=== PATIENT | male | born 1950 | race Caucasian/White ===

== ENCOUNTER 2019-02-17 09:46 | Inpatient (IN) ==
[2019-02-17] MEDS ORDERED: ZITHROMAX 500 MG/NS 500 MG/250 ML IVPB IV ONE (10:40)
[2019-02-17] MEDS ORDERED: NS 1,000 ML IV ONE ×2 (10:40→15:06)
[2019-02-17] MEDS ORDERED: ROCEPHIN 2 GM in NS 50 ML IV ONE (10:40)
[2019-02-17] MEDS ORDERED: DUONEB (A & A) INH ONE (10:44)
[2019-02-17 10:45] LABS: ALLEN TEST YES; BLOOD TYPE ARTERIAL; HCO3-(ACT) 20.9 mmoll (20.0-26.0); METHB 1.8 % (0.0-1.5); O2(CT) 17.3 mL/dL (15.0-23.0); O2HB 91.2 % (95.0-99.0); PCO2(98.6) 29 mmHg (35-45); PO2(98.6) 65 mmHg (60-100); SAMPLE BLOOD; SAO2 95.6 % (95.0-100.0); THB 13.5 g/dL (11.5-17.4); pH(98.6) 7.41 (7.35-7.45)
[2019-02-17 10:46] LABS: MODALITY ROOM AIR
[2019-02-17 10:46] LABS: INR 1.29; PROTIME 16.3 Seconds (11.0-16.0)
[2019-02-17 10:47] LABS: PTT 28.7 Seconds (22.3-41.8)
[2019-02-17 10:48] LABS: BASO# 0.01 X1000 (0.0-0.2); BASO% 0.1 % (0.0-0.8); HEMATOCRIT 39.4 % (42.0-52.0); HEMOGLOBIN 13.5 g/dL (14.0-18.0); IMM GRAN# 0.04 X1000 (0.0-0.04); IMM GRAN% 0.5 % (0.0-0.5); LYMPH# 0.46 X1000 (1.2-3.4); LYMPH% 5.4 % (20.5-51.1); MCH 34.4 PG (27-31); MCHC 34.3 g/dL (33-37); MCV 100.3 FL (81-99); MONO# 0.58 X1000 (0.11-0.59); MONO% 6.8 % (1.7-9.3); MPV 9.7 FL (7.4-10.4); NEUT# 7.41 X1000 (1.4-6.5); NEUT% 87.2 % (42.2-75.2); PLT 208 X1000 (130-400); RBC 3.93 XMIL (4.7-6.1); RDW 13.6 % (11.5-14.5)
--- NOTE | 2019-02-17 10:55 | Diag Imaging Result Doc PS360 ---
EXAM: CHEST-1 VIEW 02/17/2019 HISTORY: possible sepsis TECHNIQUE: AP portable upright at 1045 COMMENT: There is cardiomegaly and increased pulmonary vascularity. There is interstitial pulmonary edema. There are bilateral pleural effusions. These findings were not present on 10/01/2013. The possibility of superimposed pneumonia in the right upper lobe cannot be excluded. IMPRESSION: Pulmonary edema, cardiomegaly and pleural effusions. Questionable bronchopneumonia. Electronically signed by Trey Matamoros 02/17/2019 10:53 AM
--- NOTE | 2019-02-17 10:59 | EKG Report ---
Test Performed on : 02/17/2019 09:53:50 AM Test Reason : COUGH Blood Pressure : / mmHG Vent. Rate : 114 BPM Atrial Rate : 114 BPM P-R Int : 152 ms QRS Dur : 086 ms QT Int : 358 ms P-R-T Axes : 073 -44 091 degrees QTc Int : 493 ms Sinus tachycardia. Possible Left atrial enlargement Left axis deviation Left ventricular hypertrophy Nonspecific T wave abnormality Abnormal ECG No previous ECGs available Unconfirmed Result
[2019-02-17 11:13] LABS: ALB/GLOB RATIO 1.1; ALBUMIN 3.7 g/dL (3.5-5.0); CALCIUM 8.8 mg/dL (8.8-10.2); TOTAL BILIRUBIN 1.01 mg/dL (0.20-1.00); TOTAL PROTEIN 7.2 g/dL (6.3-8.3)
[2019-02-17 11:24] LABS: URINE SOURCE CATH
[2019-02-17 11:33] LABS: BILIRUBIN URINE NEGATIVE (NEGATIVE); BLOOD URINE SMALL (NEGATIVE); COLOR YELLOW; GLUCOSE URINE NEGATIVE (NEGATIVE); KETONE URINE NEGATIVE (NEGATIVE); LEUKOCYTES URINE NEGATIVE (NEGATIVE); NITRITE URINE NEGATIVE (NEGATIVE); PROTEIN URINE 300 mg/dL (NEGATIVE); SP GRAVITY URINE 1.021; TURBIDITY URINE CLEAR (CLEAR); UROBILINOGEN URINE 2 mg/dL (NORMAL)
[2019-02-17 11:34] LABS: UR EPITHELIAL CELLS <10 /HPF (<10); URINE BACTERIA NEGATIVE /HPF; URINE RBC <10 /HPF (<10); URINE WBC <10 /HPF (<10)
[2019-02-17] MEDS ORDERED: LR 1,000 ML IV ONE (11:34)
[2019-02-17 12:06] LABS: BANDS 4 % (0-1); LYMPHS 4 % (21-51); MONO 4 % (1-9); SEGS 88 % (42-75)
--- NOTE | 2019-02-17 12:30 | PROVIDER DOCUMENTATION ---
This chart was entered by Kyleigh Cowart Scribe, acting as scribe for Sanford Condon MD. HPI-Respiratory General - General Chief Complaint: Shortness of Breath Stated Complaint: SOB Time Seen by Provider: 02/17/19 10:33 Source: patient, family Allergies/Adverse Reactions: Patient Allergies Allergy/AdvReac Type Severity Reaction Status Date / Time Penicillins Allergy HIVES Verified 02/17/19 10:02 Home Medications: Home Medication List Medication Instructions Recorded Confirmed Last Taken Type NK [No Home Medications] 02/17/19 02/17/19 Unknown History - History of Present Illness-Resp Nature of Presenting Problem: Patient is a 68 year old male who presents with shortness of breath and cough. Family states symptoms have been present for 2.5 weeks and worsened last night. Denies fever. History of COPD and liver disease. Quality of Pain: reports: tightness Severity in ED: reports: moderate Onset/Duration: reports: other (2.5 weeks) Timing: reports: still present, getting worse (last night) Cough Quality/Degree: reports: moderate Associated Symptoms: reports: cough, shortness of breath Similar Symptoms Previously?: Yes Recently seen or treated by another doctor?: No Review of Systems - Adult - REVIEW OF SYSTEMS - ADULT ROS:: ROS per family Constitutional: reports: no symptoms reported. denies: chills, fever, fatique Eyes: reports: no symptoms reported Ears, Nose, Mouth & Throat: reports: no symptoms reported Cardiovascular: reports: no symptoms reported Respiratory: reports: see HPI, cough, shortness of breath. denies: wheezing Gastrointestinal: reports: no symptoms reported Genitourinary: reports: no symptoms reported Musculoskeletal: reports: no symptoms reported Integumentary: reports: no symptoms reported Neurological: reports: no symptoms reported Psychiatric: reports: no symptoms reported Endocrine: reports: no symptoms reported Hematologic/Lymphatic: reports: no symptoms reported Allergic/Immunologic: reports: no symptoms reported All Other Systems: Reviewed and Negative Past History - Adult - PAST MEDICAL HISTORY-ADULT Review of Records: reports: Old Records Reviewed, Social history reviewed & non- contributory. Major Childhood Illnesses: reports: denies history Cardiovascular: reports: denies history Respiratory: reports: COPD Gastrointestinal: reports: denies history Obstetrical/Gynecological: reports: denies history Genitourinary: reports: denies history Musculoskeletal: reports: denies history Neurological: reports: denies history Psychiatric: reports: ptsd Endocrine/Immune: reports: denies history Other Conditions: reports: denies history - PRIOR SURGERIES/PROCEDURES Surgical/Procedure History: reports: reviewed, not pertinent - IMMUNIZATION STATUS Childhood Immunizations: See Nurse Assessment Flu Vaccine: See Nurse Assessment - FAMILY HISTORY Family History: reviewed, not pertinent - SOCIAL HISTORY Smoking: quit less than 1 year (quit for 2.5 weeks), cigarettes Substance Use: alcohol Alcohol Use Frequency: occasionally Living Situation: family Physical Exam-General - PHYSICAL EXAM-ADULT Initial Vital Signs Reviewed: Yes - CONSTITUTIONAL General Appearance: alert, no apparent distress, thin. negative: lethargic - HEAD, EARS, NOSE, MOUTH & THROAT HENMT: normocephalic/atraumatic, moist mucous membranes. negative: angioedema - RESPIRATORY Respiratory: chest non-tender, rales (bilateral. left worse than right). n egative: respiratory distress - CARDIOVASCULAR Cardiovascular: normal peripheral pulses, tachycardia. negative: systolic murmur - GASTROINTESTINAL (ABDOMEN) Abdominal Exam: normal bowel sounds, non tender, soft. negative: guarding, rigid - MUSCULOSKELETAL Extremity: non-tender, normal inspection. negative: pedal edema - SKIN Integumentary: normal color, normal turgor, warm/dry. negative: cyanosis, ecchymosis, jaundice - NEUROLOGIC Neurologic: grossly normal. negative: aphasia, facial droop - PSYCHIATRIC Psych/Mental Status: normal mood/affect, oriented x 3. negative: anxious - HEART Score HEART Score: History: Slightly Suspicious HEART Score: ECG: Non-Specific Repolarization Disturbance/LBBB/PM HEART Score: Age: > or = 65 Years HEART Score: Risk Factors for Atherosclerotic Disease: 1 or 2 Risk Factors HEART Score: Troponin: < or = Normal Limit Total HEART Score:: 4 Progress - PLAN OF CARE/RESULTS Progress/Plan/Lab Results: Vital Signs - 8 hr 02/17/19 09:54 02/17/19 09:59 02/17/19 10:00 Temperature 97.8 F Pulse Rate 115 H 115 H 112 H Respiratory Rate 24 26 H 24 Blood Pressure 182/130 182/130 185/131 O2 Sat by Pulse Oximetry 95 96 96 02/17/19 11:00 02/17/19 11:21 02/17/19 12:00 Temperature Pulse Rate 111 H 104 H 108 H Respiratory Rate 24 18 22 Blood Pressure 177/127 140/107 O2 Sat by Pulse Oximetry 97 95 96 02/17/19 12:12 Temperature Pulse Rate 90 Respiratory Rate 20 Blood Pressure 130/97 O2 Sat by Pulse Oximetry 98 02/17/19 11:18 - Final Sputum Laboratory Results - last 24 hr 02/17/19 02/17/19 02/17/19 10:15 10:15 10:15 WBC 8.50 RBC 3.93 L Hgb 13.5 L Hct 39.4 L MCV 100.3 H MCH 34.4 H MCHC 34.3 RDW Std Deviation 13.6 Plt Count 208 MPV 9.7 Immature Gran % (Auto) 0.5 Neut % (Auto) 87.2 H Lymph % (Auto) 5.4 L Ponce % (Auto) 6.8 Eos % (Auto) 0.0 Baso % (Auto) 0.1 Immature Gran # (Auto) 0.04 Neut # (Auto) 7.41 H Lymph # (Auto) 0.46 L Ponce # (Auto) 0.58 Eos # (Auto) 0.00 Baso # (Auto) 0.01 Segmented Neutrophils 88 H Band Neutrophils 4 H Lymphocytes 4 L Monocytes 4 PT 16.3 H INR 1.29 PTT (Actin FS) 28.7 Specimen Type Sample Site pH pCO2 pO2 HCO3 Base Excess Oxyhemoglobin ABG O2 Sat (Calculated) ABG O2 Saturation ABG Carboxyhemoglobin ABG Methemoglobin Kwan Test A-a O2 Difference Total Hemoglobin Lactate Blood Gas Modality FiO2 % Sodium 124 L Potassium 4.0 Chloride 87 L Carbon Dioxide 17 L Anion Gap 20 BUN 31 H Creatinine 2.0 H Estimated GFR/1.73 m2 33 BUN/Creatinine Ratio 16 Glucose 133 H Calculated Osmolality 258 Calcium 8.8 Total Bilirubin 1.01 H AST 106 H ALT 102 H Alkaline Phosphatase 138 H Creatine Kinase 84 Troponin T Total Protein 7.2 Albumin 3.7 Globulin 3.5 Albumin/Globulin Ratio 1.1 Plasma Lactate Urine Source Urine Color Urine Turbidity Urine pH Ur Specific [place] Urine Protein Ur Glucose (Stick) Ur Ketones (Stick) Urine Blood Urine Nitrite Urine Bilirubin Urobilinogen Dipstick Urine Leukocytes Urine WBC (Auto) Urine RBC (Auto) U Epithel Cells (Auto) Urine Bacteria (Auto) 02/17/19 02/17/19 02/17/19 10:15 10:15 10:35 WBC RBC Hgb Hct MCV MCH MCHC RDW Std Deviation Plt Count MPV Immature Gran % (Auto) Neut % (Auto) Lymph % (Auto) Ponce % (Auto) Eos % (Auto) Baso % (Auto) Immature Gran # (Auto) Neut # (Auto) Lymph # (Auto) Ponce # (Auto) Eos # (Auto) Baso # (Auto) Segmented Neutrophils Band Neutrophils Lymphocytes Monocytes PT INR PTT (Actin FS) Specimen Type ARTERIAL Sample Site R RADIAL pH 7.41 pCO2 29 L pO2 65 HCO3 20.9 Base Excess -5.0 L Oxyhemoglobin 91.2 L ABG O2 Sat (Calculated) 17.3 ABG O2 Saturation 95.6 ABG Carboxyhemoglobin 2.70 H ABG Methemoglobin 1.8 H Kwan Test YES A-a O2 Difference 48.0 Total Hemoglobin 13.5 Lactate 3.10 H Blood Gas Modality ROOM AIR FiO2 % 21.0 Sodium Potassium Chloride Carbon Dioxide Anion Gap BUN Creatinine Estimated GFR/1.73 m2 BUN/Creatinine Ratio Glucose Calculated Osmolality Calcium Total Bilirubin AST ALT Alkaline Phosphatase Creatine Kinase Troponin T 0.038 Total Protein Albumin Globulin Albumin/Globulin Ratio Plasma Lactate 4.3 H* Urine Source Urine Color Urine Turbidity Urine pH Ur Specific [place] Urine Protein Ur Glucose (Stick) Ur Ketones (Stick) Urine Blood Urine Nitrite Urine Bilirubin Urobilinogen Dipstick Urine Leukocytes Urine WBC (Auto) Urine RBC (Auto) U Epithel Cells (Auto) Urine Bacteria (Auto) 02/17/19 11:18 WBC RBC Hgb Hct MCV MCH MCHC RDW Std Deviation Plt Count MPV Immature Gran % (Auto) Neut % (Auto) Lymph % (Auto) Ponce % (Auto) Eos % (Auto) Baso % (Auto) Immature Gran # (Auto) Neut # (Auto) Lymph # (Auto) Ponce # (Auto) Eos # (Auto) Baso # (Auto) Segmented Neutrophils Band Neutrophils Lymphocytes Monocytes PT INR PTT (Actin FS) Specimen Type Sample Site pH pCO2 pO2 HCO3 Base Excess Oxyhemoglobin ABG O2 Sat (Calculated) ABG O2 Saturation ABG Carboxyhemoglobin ABG Methemoglobin Kwan Test A-a O2 Difference Total Hemoglobin Lactate Blood Gas Modality FiO2 % Sodium Potassium Chloride Carbon Dioxide Anion Gap BUN Creatinine Estimated GFR/1.73 m2 BUN/Creatinine Ratio Glucose Calculated Osmolality Calcium Total Bilirubin AST ALT Alkaline Phosphatase Creatine Kinase Troponin T Total Protein Albumin Globulin Albumin/Globulin Ratio Plasma Lactate Urine Source CATH Urine Color YELLOW Urine Turbidity CLEAR Urine pH 6.0 Ur Specific [place] 1.021 Urine Protein 300 A Ur Glucose (Stick) NEGATIVE Ur Ketones (Stick) NEGATIVE Urine Blood SMALL A Urine Nitrite NEGATIVE Urine Bilirubin NEGATIVE Urobilinogen Dipstick 2 A Urine Leukocytes NEGATIVE Urine WBC (Auto) <10 Urine RBC (Auto) <10 U Epithel Cells (Auto) <10 Urine Bacteria (Auto) NEGATIVE Orders Category Date Time Status Cardiac Monitoring DIRECTED Care 02/17/19 10:28 Active IV Insertion ORDERED Care 02/17/19 10:28 Completed Notify MD of + Sepsis Screen NOW Care 02/17/19 10:28 Active Notify Physician As Ordered Care 02/17/19 10:28 Active CHEST-1 VIEW [RAD] Stat Exams 02/17/19 10:28 Completed ABG [RESP] Routine Lab 02/17/19 10:35 Completed BLOOD CULTURE [BLDCUL] Stat Lab 02/17/19 10:15 Results CBC WITH DIFF [HEME] Stat Lab 02/17/19 10:15 Completed CK PROFILE [SP CHEM] Stat Lab 02/17/19 10:15 Completed COMPREHENSIVE METABOLIC PANEL [CHEM] Stat Lab 02/17/19 10:15 Completed LACTATE, PLASMA [CHEM] Lab 02/17/19 10:15 Completed LACTATE, PLASMA [CHEM] Lab 02/17/19 13:30 Uncollected LACTATE, PLASMA [CHEM] Lab 02/17/19 16:30 Uncollected PROTIME WITH INR [COAG] Stat Lab 02/17/19 10:15 Completed PTT [COAG] Stat Lab 02/17/19 10:15 Completed SPUTUM CULTURE WITH GRAM STAIN [RM] Routine Lab 02/17/19 11:18 Results TROPONIN T Stat Lab 02/17/19 10:15 Completed URINALYSIS W/POSS RFLX CULT [URINALYSIS] Stat Lab 02/17/19 11:18 Completed 0.9% Sodium Chloride Inj [Ns] 1,000 ml Med 02/17/19 10:40 Discontinued IV 999 mls/hr Albuterol 2.5MG/Ipratrop 0.5MG [Duoneb (A & A)] Med 02/17/19 10:44 D iscontinued 3 ml INH NOW ONE Azithromycin 500 mg/Ns [Zithromax 500 mg/Ns] Med 02/17/19 10:40 Discontinued 500 mg in 250 ml IV NOW CefTRIAXONE [Rocephin] 2 gm Med 02/17/19 10:40 Discontinued 0.9% Sodium Chloride Inj [Ns] 50 ml IV NOW Lactated Ringers Inj [Lr] 1,000 ml Med 02/17/19 11:34 Active IV 999 mls/hr Aerosol Treatments Routine Oth 02/17/19 10:44 Completed Aerosol Treatments Stat Oth 02/17/19 10:44 Completed EKG [EKG] Stat Ther 02/17/19 10:40 Draft Result Diagrams: 02/17/19 10:15 02/17/19 10:15 - EKG 1 Time of EKG reading by physician:: 09:53 EKG Read and Signed by:: Sanford Condon EKG Interpretation (*Must complete 3 of following elements*): Abnormal Rate: 114 Rhythm: sinus tachycardia [place]: left QRS: LVH CT Interval: normal Comments: possible left atrial enlargement; nonspecific T wave abnormality. - XRAY 1 XRAY Study: Chest Impression: See EMR Report ( EXAM: CHEST-1 VIEW 02/17/2019 HISTORY: possible sepsis TECHNIQUE: AP portable upright at 1045 COMMENT: There is cardiomegaly and increased pulmonary vascularity. There is interstitial pulmonary edema. T here are bilateral pleural effusions. These findings were not present on 10/01/2013. The possibility of superimposed pneumonia in the right upper lobe cannot be excluded. IMPRESSION: Pulmonary edema, cardiomegaly and pleural effusions. Questionable bronchopneumonia. Electronically signed by Trey Matamoros 02/17/2019 10:53 AM 02/17/19 1053 Interpreting Physician: Trey Matamoros MD Dictated Date/Time: 02/17/19 1052 cc: Sanford Condon MD; None,PCP) - CONSULTS/PCP/HOSPITALIST Notification #1 *Consult/PCP/Hospitalist*: ELEANOR Samayoa for Hospitalist Time Discussed: 11:14 (Dr. Hoff accepted admit) Reason/Comments: Dr. Condon consulted with Danita about patient. Consult Disposition: Will see in ED, Admit Departure - Departure Date of Disposition Decision: 02/17/19 Time of Disposition Decision: 11:20 DIAGNOSIS: COPD exacerbation, Right lower lobe pneumonia, Sepsis, Elevated liver enzymes, Cardiomegaly, Pulmonary edema Disposition: ADMITTED INPATIENT 09 Certified Medical Emergency: Emergent Condition: Fair Referrals and Follow-Ups: None,PCP [Primary Care Provider] - - Critical Care Note This patient required my direct & personal management of CC.: Yes Total Time (mins): 36 Critical Care Statement: This patient required my direct personal management to treat or rule out processes, the absence of which, could potentiallly result in sudden, clinically significant life or limb threatening deterioration. Attestation - Physician/ ERIC Attestation The physician spent face to face time with patient:: Yes Advanced Practice Provider documentation review:: Supervising physician onsite and consulted in the evaluation and care of this patient. The physician did have a face to face encounter with the patient. This chart was documented by the indicated scribe, (Kyleigh Cowart Scribe) and accurately reflects the services I performed and decisions made by me, Sanford Condon MD, as attested by the provider's signature.
[2019-02-17] MEDS ORDERED: DUONEB (A & A) INH PRN (13:15)
[2019-02-17] MEDS ORDERED: M.V.I.-12 10 ML, FOLIC ACID 1 MG, MAGNESIUM SULFATE 1 GM, THIAMINE 100 MG in NS 1,000 ML IV ONE (13:30)
[2019-02-17] MEDS ORDERED: MAGNESIUM SULFATE IV ONE ×2 (13:30→13:40)
[2019-02-17] MEDS ORDERED: FOLIC ACID IV ONE ×2 (13:30→13:40)
[2019-02-17] MEDS ORDERED: THIAMINE IV ONE ×2 (13:30→13:40)
[2019-02-17] MEDS ORDERED: M V I IV ONE ×2 (13:30→13:40)
[2019-02-17] MEDS ORDERED: [UNRECOGNIZED DRUG - OTHER] IV ONE ×2 (13:30→13:40)
[2019-02-17] MEDS ORDERED: ZITHROMAX PO SCH (14:02)
[2019-02-17] MEDS ORDERED: ROCEPHIN 1 GM in NS 50 ML IV SCH (14:02)
[2019-02-17] MEDS: SOLU-MEDROL IV SCH ×2 (15:15→21:15)
[2019-02-17] MEDS: NICODERM PATCH TD SCH (15:15)
--- NOTE | 2019-02-17 16:04 | Diag Imaging Result Doc PS360 ---
EXAM: CT HEAD W/O CONTRAST 02/17/2019 HISTORY: encephalopathy TECHNIQUE: This exam was performed using automated exposure control, adjustment of mA or kV according to patient size, and/or use of iterative reconstruction technique. COMMENT: There are calcifications in the vertebral and internal carotid arteries bilaterally. There are patchy lucencies in the periventricular white matter of both hemispheres particularly in the frontal lobes and around the atria of the lateral ventricles. There is no evidence of bleed, mass effect, or abnormal extra-axial fluid collections. Compared to 06/22/2010, there has been worsening in the periventricular white matter lucency. IMPRESSION: Worsened symmetrical bilateral periventricular white matter disease, probably representing chronic microvascular changes. Electronically signed by Trey Matamoros 02/17/2019 4:00 PM
[2019-02-17] MEDS: DUONEB (A & A) INH SCH ×3 (16:08→22:38)
[2019-02-17 16:10] LABS: CALCIUM 8.2 mg/dL (8.8-10.2); CREATININE 1.8 mg/dL (0.7-1.2); POTASSIUM 4.5 mmol/L (3.5-5.1)
[2019-02-17] MEDS: NS 1,000 ML IV SCH (18:41)
--- NOTE | 2019-02-17 19:07 | HISTORY AND PHYSICAL ---
ADDENDUM: HISTORY OF PRESENT ILLNESS: The patient came in with pneumonia complaints. He is an alcoholic. He drinks 4 to 6 beers. We will continue to monitor. He came in with shortness of breath. He has had a lot of symptoms. He is extremely cachectic with bitemporal wasting. He was found to have a sodium level of 120, so we will continue to follow closely. He has acute kidney injury. He has elevated liver enzymes. PHYSICAL EXAMINATION: He is very cachectic and he has rales at the bases. He is also fairly hypertensive down there. Again, he drinks 4 to 6 beers a day, possibly more. PROBLEM LIST: 1. Pneumonia. We will continue empiric antibiotics and follow. He has been placed on Rocephin, azithromycin. We will continue to monitor. He is on breathing treatments. 2. Alcohol abuse. We have counseled him at length. We will continue to follow closely. In any case, the patient was evaluated and we will give him empiric antibiotics. For his alcohol abuse, we will continue to follow. 3. Hypernatremia. It is most likely related to poor nutrition, etc., but we will continue to follow. 4. He does look like he has some degree of sepsis because his lactate level has increased. There is also concern over possible congestive heart failure based on his cardiac findings. We will check a proBNP and an echocardiogram and follow. DISPOSITION: Pending clinical status. cc: Jamaal Calloway MD
[2019-02-17] MEDS: ATIVAN IV PRN (21:17)
--- NOTE | 2019-02-17 22:18 | HISTORY AND PHYSICAL ---
CHIEF COMPLAINT: Shortness of breath. HISTORY OF PRESENT ILLNESS: This is a 68-year-old gentleman with a history of COPD and liver disease. He presents to the emergency room with family members, complaining of about 4 weeks of shortness of breath. He states that over the last 2-1/2 weeks, he had dyspnea on exertion and he found himself having to have frequent rest periods during activities of daily living. Over the last week, it has progressed to shortness of breath at rest, and during the night last night, he became concerned. His significant other became concerned and insisted that he come to the ER, prompting his visit. He was found to have right lower lobe pneumonia. Blood cultures were obtained in the emergency room. He was given Rocephin and azithromycin, and is being admitted for further evaluation and treatment. PAST MEDICAL HISTORY: 1. COPD. 2. Liver disease. 3. PTSD from [place]. PAST SURGICAL HISTORY: Right thigh surgery. SOCIAL HISTORY: He smokes 2 packs a day. He drinks about 6-plus beers a day and he uses marijuana regularly. ALLERGIES: Penicillin. HOME MEDICATIONS: The patient stopped taking his prescribed medications some time ago. REVIEW OF SYSTEMS: Discussed with the patient with pertinent positives stated in the HPI. He denied any syncope, dizziness, any chest pain or palpitations, recent weight loss or weight gain, any fevers or chills, a productive cough, any nausea, vomiting, diarrhea, constipation, black or bloody vomitus or stools, hematuria, dysuria, frequency, urgency. PHYSICAL EXAMINATION: GENERAL: This is a 68-year-old gentleman who is lying on the stretcher in the emergency room in no distress. VITAL SIGNS: Blood pressure is 113/92, with a heart rate of 107. Respirations are 20. Temperature is 97.8 degrees, with O2 saturations 94 to 97 percent on room air. HEENT: Head is normocephalic, atraumatic. Mucous membranes are moist. NECK: Supple with trachea midline. CARDIOVASCULAR: Regular rate and rhythm. S1 and S2 appreciated. He has no lower extremity edema. Calves are nontender bilaterally with peripheral pulses palpable x4 extremities. PULMONARY: Expiratory wheezes are scattered throughout with left greater than right. Chest rises and falls symmetric to respiration. Chest wall is nontender to palpation. GASTROINTESTINAL: Abdomen is soft, nontender, nondistended with bowel sounds in all 4 quadrants. NEUROLOGIC: He is alert and oriented x3. SKIN: Warm and dry. LABORATORY AND DIAGNOSTIC DATA: WBC is 8.5, with hemoglobin 13.5, hematocrit 39.4, and platelets 208,000. Sodium is 124, potassium 4, BUN 31, creatinine 2, with a glucose of 133. Total bilirubin is 1.0, with AST 106, ALT 102, and alkaline phosphatase 138. Chest x- ray reveals pulmonary edema, cardiomegaly with pleural effusions, and questionable bronchopneumonia. CT of the head reveals symmetrical bilateral periventricular white matter disease which is worsened, probably representing chronic microvascular changes. Blood cultures are pending. ASSESSMENT AND PLAN: 1. Bronchopneumonia. Rocephin and azithromycin, further antibiotics will be culture driven. DuoNeb q.4 hours with q.2 hours p.r.n., steroids to taper, incentive spirometer q.4 hours per Respiratory Therapy. 2. Hyponatremia. check urine electrolytes,IV hydration, and trend labs. 3. Acute kidney injury. IV hydration and renal dose medications as appropriate. 4. Elevated liver function tests. repeat these in the morning. 5. Alcohol use. The patient does state he drinks about 6 to 8 beers a day, with his last drinks being last night. Blood alcohol revealed none detected. monitor for any signs of withdrawal, give Ativan p.r.n., banana bag today. 6. Tobacco use and abuse. Nicotine patch daily. 7. Sepsis secondary to pneumonia. Treatment as stated above. Plan discussed with Dr Calloway Further treatments pending hospital course. Dictated by ELEANOR Dooley for Jamaal Calloway MD cc: ELEANOR Dooley MD [facility]ENTER[facility]ade
[2019-02-18] MEDS: NS 1,000 ML IV SCH ×2 (02:25→16:57)
[2019-02-18] MEDS: DUONEB (A & A) INH SCH ×6 (03:53→23:11)
--- NOTE | 2019-02-18 05:09 | ECHO REPORT ---
ORDER DATE: 02/17/2019 INDICATION: CHF. FINDINGS: 1. Right atrium is moderately enlarged. 2. Mild tricuspid regurgitation. Right ventricular systolic pressure of 48. 3. The right ventricle appears to have mild reduction in right ventricular systolic function. 4. No significant pulmonic insufficiency. 5. Severe left atrial enlargement. Dimension of 5.1 cm. Volume index of 47. 6. No mitral prolapse. Mild mitral regurgitation. No evidence of mitral stenosis. 7. Normal left ventricle size. The end-diastolic dimension is 5.3 cm. Normal wall thicknesses with a posterior and interventricular septal wall thickness 1.1 and 1.0 cm, respectively. Severe reduction in left ventricle systolic function with an estimated ejection fraction of 10 to 15 percent. Optison echo contrast was used. There is no clear evidence of left ventricular thrombus. 8. Aortic valve opens well. No evidence of stenosis or insufficiency. 9. Aorta appears normal in visualized segments. 10. No pericardial effusion is identified. cc: MD Jamaal Garay MD
[2019-02-18] MEDS: PRILOSEC PO SCH (06:02)
[2019-02-18] MEDS: SOLU-MEDROL IV SCH ×3 (06:04→21:06)
[2019-02-18 07:55] LABS: EOS# 0.03 X1000 (0.0-0.7); EOS% 0.5 % (0.0-10.0); HEMATOCRIT 40.5 % (42.0-52.0); HEMOGLOBIN 13.8 g/dL (14.0-18.0); IMM GRAN# 0.02 X1000 (0.0-0.04); IMM GRAN% 0.3 % (0.0-0.5); LYMPH# 0.33 X1000 (1.2-3.4); LYMPH% 5.3 % (20.5-51.1); MCH 34.1 PG (27-31); MCHC 34.1 g/dL (33-37); MONO# 0.14 X1000 (0.11-0.59); MONO% 2.2 % (1.7-9.3); MPV 10.3 FL (7.4-10.4); NEUT# 5.72 X1000 (1.4-6.5); NEUT% 91.7 % (42.2-75.2); PLT 223 X1000 (130-400); RBC 4.05 XMIL (4.7-6.1); RDW 13.7 % (11.5-14.5); WBC 6.24 X1000 (4.8-10.8)
[2019-02-18 08:10] LABS: ALB/GLOB RATIO 1.2; ALBUMIN 3.8 g/dL (3.5-5.0); CALCIUM 8.4 mg/dL (8.8-10.2); CREATININE 2.1 mg/dL (0.7-1.2); POTASSIUM 4.3 mmol/L (3.5-5.1); TOTAL BILIRUBIN 0.9 mg/dL (0.20-1.00)
[2019-02-18 08:40] LABS: LYMPHS 2 % (21-51); SEGS 98 % (42-75)
--- NOTE | 2019-02-18 09:47 | PROGRESS NOTE ---
DATE: 02/18/2019 SUBJECTIVE: He had been admitted on 02/17/2019, and came in with shortness of breath. He has a history of COPD and liver disease. He presented to the emergency room complaining of about 4 weeks of shortness of breath. He states that for about 2 and half weeks had dyspnea on exertion so admitted with bronchopneumonia. His breathing he reports is better. OBJECTIVE: He remains afebrile, temperature 95.7 degrees, pulse 108, respirations 15, and blood pressure 157/133. Pupils are equal and round. Lungs are clear in all lung [place]. Cardiovascular regular rhythm and rate without murmur or S3. Abdomen is soft. Skin is warm and dry. LABORATORY AND DIAGNOSTIC: Urine output looks like it was 2.5 L. EKG from this morning looks like sinus tachycardia with left axis deviation borderline suggestive of left ventricular hypertrophy. ASSESSMENT AND PLAN: 1. Pneumonia. Continue present antibiotics. 2. History of alcohol abuse. We will follow closely for signs of withdrawals. 3. Hyponatremia, which is improved. Suspect that is related to his nutrition and his alcoholism. 4. Appeared to have some bacteremia. I am not sure it was true sepsis, but continue present regimen. REVIEW OF HIS ORDERS: I do not see any change. LABORATORY DATA: Review of his labs, sodium was 129, potassium 4.3, chloride 93, BUN 36, and creatinine 2.1. His plasma lactate was 4.6, creatinine was I think 2.0 when he came in. cc: Kwan Chow MD
--- NOTE | 2019-02-18 10:09 | Diag Imaging Result Doc PS360 ---
EXAM: CT THORAX W/O CONTRAST 02/18/2019 HISTORY: abnormal abgs/ sob TECHNIQUE: This exam was performed using automated exposure control, adjustment of mA or kV according to patient size, and/or use of iterative reconstruction technique. COMMENT: There are no previous studies. There are large bilateral pleural effusions. Some of this is loculated in the fissure on the left and laterally. There is ascites. There is extensive coronary calcification. There are densely calcified nodes in the subcarina and left hilum. There are spondylotic changes in the lower cervical and thoracic spine. There is compressive atelectasis in both lower lobes and the lingula. The possibility of pneumonia cannot be excluded. There is COPD. There is an apical pleural-based nodule/mass with some microlobulation spiculation of its contours in the right upper lobe. There is an irregular nodule which is not calcified in the anterior left apex on image 24. There is a calcified granuloma in the left lower lobe. IMPRESSION: 1. Bilateral large pleural effusions with compressive atelectasis. The left effusion is slightly loculated. 2. Suspicious pleural-based mass in the right apex. Noncalcified nodule in the left upper lobe. Further evaluation is recommended. Electronically signed by Trey Matamoros 02/18/2019 10:07 AM
[2019-02-18] MEDS: NICODERM PATCH TD SCH (10:48)
[2019-02-18] MEDS: ZITHROMAX PO SCH (10:48)
[2019-02-18] MEDS: ROCEPHIN 1 GM in NS 50 ML IV SCH (11:26)
[2019-02-19] MEDS: DUONEB (A & A) INH SCH ×6 (03:41→22:49)
[2019-02-19] MEDS: SOLU-MEDROL IV SCH ×3 (05:56→21:19)
[2019-02-19] MEDS: PRILOSEC PO SCH (05:59)
[2019-02-19] MEDS: ATIVAN IV PRN ×2 (06:07→21:19)
[2019-02-19] MEDS: ZITHROMAX PO SCH (09:29)
[2019-02-19] MEDS: NICODERM PATCH TD SCH (09:29)
[2019-02-19] MEDS: NS 1,000 ML IV SCH (09:45)
[2019-02-19] MEDS: ROCEPHIN 1 GM in NS 50 ML IV SCH (11:54)
--- NOTE | 2019-02-19 14:02 | PROGRESS NOTE ---
DATE: 02/19/2019 SUBJECTIVE: The patient denies having any acute complaints this morning and feels okay. OBJECTIVE: Vital Signs: Temperature 97.8 degrees, pulse 116 per minute, respiratory rate 18 per minute, blood pressure 160/123, pulse oximetry 100% on 2 L of oxygen via nasal cannula. His blood pressure was 127/53 around midnight. It has been fluctuating whenever he gets anxious. Cardiovascular: First and second heart sounds are audible without any murmurs or gallops. Regular tachycardia is present. Pulmonary: Bilateral lung air entry is good without any rales or rhonchi. Gastrointestinal: Abdomen is soft and nondistended. Normal bowel sounds are present. Musculoskeletal: No deformities are present. DIAGNOSTIC DATA: No labs have been done this morning. Chest CT scan done yesterday showed bilateral large pleural effusions with atelectasis and suspicious pleural-based mass in the right apex. Noncalcified nodule in the left upper lobe was also seen. IMPRESSION: 1. Bronchial pneumonia with bilateral pleural effusions and right apex pleural-based mass. 2. Hyponatremia. 3. Alcohol abuse. PLAN: We will continue with IV azithromycin and ceftriaxone along with supportive care. He will also continue getting IV methylprednisolone and we will monitor his electrolytes. We will obtain pulmonary consultation with Dr. Case to further assist us in addressing his abnormalities on CT scan of the chest done yesterday. Further recommendations are forthcoming. cc: Sarah Smith MD
[2019-02-19 15:44] LABS: MAGNESIUM 2.5 mg/dL (1.5-2.7); PHOSPHORUS 4.8 mg/dL (2.7-4.5)
--- NOTE | 2019-02-19 16:23 | Diag Imaging Result Doc PS360 ---
EXAM: US RENAL 2 (RETROPER) COMPLETE - 02/19/2019 HISTORY: renal failure TECHNIQUE: Bilateral renal ultrasound COMPARISON: None. FINDINGS: The right kidney measures 10.5 x 4.6 x 4.3 cm in size, with cortical thickness of approximately 1 cm. The left kidney measures 9.6 x 4.8 x 5.4 cm in size, with cortical thickness of approximately 1 cm. There are two right renal cysts which measure 1.6 cm and 1.3 cm, respectively. There is no solid renal mass, renal stone, or hydronephrosis identified. The renal cortices are possibly mildly echogenic diffusely, which can be seen with medical renal disease. The urinary bladder is decompressed by Thompson catheter and is not evaluated. There are small to medium amount ascites noted. IMPRESSION: Small right renal cysts. Possible medical renal disease. No hydronephrosis. Small to medium amount of ascites noted. Electronically signed by Elie Hoyos 02/19/2019 4:20 PM
[2019-02-19] MEDS: LASIX IV SCH (16:35)
--- NOTE | 2019-02-19 22:51 | PULMONOLOGY CONSULTATION ---
DATE: 02/19/2019 REASON FOR CONSULTATION: Abnormal CT scan of the thorax. HISTORY OF PRESENT ILLNESS: Mr. Doyle is a 68-year-old white male with extensive and ongoing tobacco use, history of cannabis use, history of alcohol use with alcohol-related liver disease who presented to the emergency room 02/17/2019 with cough, shortness of breath, and generalized weakness. The patient was tachycardic and hypertensive upon presentation. Chest x-ray revealed cardiomegaly with pleural effusions and possible pneumonia. The patient underwent a CT scan of the head, which revealed worsening periventricular white matter disease compared to 06/22/2010. A CT scan of the thorax on 02/18/2019 revealed cardiomegaly, pulmonary edema, bilateral pleural effusions, ascites, apically based pleural mass in the right upper lobe with an irregular nodule in the left apex. PAST MEDICAL HISTORY: 1. COPD with ongoing tobacco use. 2. Alcohol abuse. 3. Alcohol-related liver disease. 4. Posttraumatic stress disorder. SOCIAL HISTORY: Continued tobacco and alcohol use with frequent use of marijuana. REVIEW OF SYSTEMS: Notable for weight loss, shortness of breath with any exertion, generalized weakness. PHYSICAL EXAMINATION: Reveals a frail, emaciated, cachectic white male with a BMI of 19. BP 154/117, heart rate 120, respiratory rate 24, oxygen saturation 100% on nasal cannula at 2 L per nasal cannula.HEENT: Mild temporal wasting. Pupils are equal and reactive. Oropharynx is clear. Neck: Supple. Chest: Reveals prolonged expiratory phase bilaterally. Cardiac: S1, S2. Abdomen: Scaphoid, soft. Extremities: With trace edema. LABORATORY DATA: Sodium 129, potassium 4.3, chloride 93, bicarbonate 18, BUN 36, creatinine 2.1, AST 105, ALT 97. White blood count 6.24, hemoglobin 13.8, platelet count 223,000. Echocardiogram reveals severe LV dysfunction with an ejection fraction of 10 to 15 percent with moderate pulmonary hypertension. IMPRESSION: A 68-year-old with 1. Right upper lobe mass. 2. Solitary pulmonary nodule, left upper lobe. 3. Bilateral pleural effusions. 4. Cardiomegaly with cardiomyopathy and severe reduction in ejection fraction. 5. Cachexia. 6. Hypoxemic respiratory failure. 7. Acute worsening of renal function numbers when compared to previous data in 2014. RECOMMENDATIONS: 1. Encourage patient to stop smoking and drinking for his nicotine addiction/tobacco use and alcohol use. 2. Placement of Thompson catheter and check an ultrasound with his acute worsening of his renal function. 3. Diuretic trial. 4. Check a CEA level. 5. Check a folate and vitamin level. 6. Anticipate outpatient PET scan. Currently, he is not clinically able to undergo CT-guided biopsy at this time. He will need to gain significant amount of strength. cc: Steven Morrison MD
[2019-02-20] MEDS: DUONEB (A & A) INH SCH ×6 (03:20→23:12)
[2019-02-20] MEDS: LASIX IV SCH (03:27)
[2019-02-20] MEDS: PRILOSEC PO SCH (06:12)
[2019-02-20] MEDS: SOLU-MEDROL IV SCH ×3 (06:12→21:13)
[2019-02-20 07:51] LABS: HEMATOCRIT 39.2 % (42.0-52.0); HEMOGLOBIN 13.3 g/dL (14.0-18.0); IMM GRAN# 0.03 X1000 (0.0-0.04); IMM GRAN% 0.2 % (0.0-0.5); LYMPH# 0.24 X1000 (1.2-3.4); LYMPH% 1.6 % (20.5-51.1); MCH 34.3 PG (27-31); MCHC 33.9 g/dL (33-37); MONO# 0.52 X1000 (0.11-0.59); MONO% 3.4 % (1.7-9.3); MPV 10.5 FL (7.4-10.4); NEUT# 14.47 X1000 (1.4-6.5); NEUT% 94.8 % (42.2-75.2); PLT 172 X1000 (130-400); RBC 3.88 XMIL (4.7-6.1); RDW 14.2 % (11.5-14.5); WBC 15.26 X1000 (4.8-10.8)
[2019-02-20 07:59] LABS: CALCIUM 8.8 mg/dL (8.8-10.2); CREATININE 2.6 mg/dL (0.7-1.2); POTASSIUM 4.9 mmol/L (3.5-5.1)
[2019-02-20] MEDS: NICODERM PATCH TD SCH (10:25)
[2019-02-20] MEDS: ZITHROMAX PO SCH (10:25)
[2019-02-20 10:35] LABS: URINE SOURCE CATH
[2019-02-20 10:41] LABS: BILIRUBIN URINE NEGATIVE (NEGATIVE); BLOOD URINE MODERATE (NEGATIVE); COLOR YELLOW; GLUCOSE URINE NEGATIVE (NEGATIVE); KETONE URINE NEGATIVE (NEGATIVE); LEUKOCYTES URINE NEGATIVE (NEGATIVE); NITRITE URINE NEGATIVE (NEGATIVE); PROTEIN URINE 30 mg/dL (NEGATIVE); SP GRAVITY URINE 1.009; TURBIDITY URINE CLEAR (CLEAR); UROBILINOGEN URINE NORMAL (NORMAL)
[2019-02-20 10:42] LABS: UR EPITHELIAL CELLS <10 /HPF (<10); URINE BACTERIA NEGATIVE /HPF; URINE WBC <10 /HPF (<10)
[2019-02-20 10:57] LABS: HEMATOCRIT 40.8 % (42.0-52.0); HEMOGLOBIN 13.7 g/dL (14.0-18.0); IMM GRAN# 0.03 X1000 (0.0-0.04); IMM GRAN% 0.2 % (0.0-0.5); LYMPH# 0.25 X1000 (1.2-3.4); LYMPH% 1.7 % (20.5-51.1); MCHC 33.6 g/dL (33-37); MCV 101.2 FL (81-99); MONO# 0.35 X1000 (0.11-0.59); MONO% 2.4 % (1.7-9.3); MPV 10.6 FL (7.4-10.4); NEUT# 14.17 X1000 (1.4-6.5); NEUT% 95.7 % (42.2-75.2); PLT 177 X1000 (130-400); RBC 4.03 XMIL (4.7-6.1); RDW 14.1 % (11.5-14.5)
--- NOTE | 2019-02-20 11:00 | Diag Imaging Result Doc PS360 ---
CHEST-1 VIEW - 02/20/2019 INDICATION: Sepsis protocol COMPARISON: 02/17/2019 FINDINGS: Stable cardiomegaly and pulmonary vascular congestion. Worsening in the small bilateral pleural effusions. There is decrease in the interstitial pulmonary edema in the midlungs and upper lobes. IMPRESSION: Mixed changes from prior. Electronically signed by Jose Francisco Licea 02/20/2019 10:58 AM
[2019-02-20 11:03] LABS: INR 1.46
[2019-02-20 11:04] LABS: PTT 27.8 Seconds (22.3-41.8)
[2019-02-20 11:50] LABS: ALLEN TEST YES; BE -7.7 mmoll (-3.0-3.0); BLOOD TYPE ARTERIAL; HCO3-(ACT) 18.9 mmoll (20.0-26.0); METHB 1.3 % (0.0-1.5); MODALITY CANNULA; O2(CT) 18.3 mL/dL (15.0-23.0); O2HB 95.4 % (95.0-99.0); PCO2(98.6) 29 mmHg (35-45); PO2(98.6) 96 mmHg (60-100); SAMPLE BLOOD; THB 13.6 g/dL (11.5-17.4); pH(98.6) 7.36 (7.35-7.45)
[2019-02-20 11:55] LABS: ALB/GLOB RATIO 1.1; ALBUMIN 3.6 g/dL (3.5-5.0); CALCIUM 9.2 mg/dL (8.8-10.2); CREATININE 3.1 mg/dL (0.7-1.2); POTASSIUM 4.6 mmol/L (3.5-5.1); TOTAL BILIRUBIN 0.94 mg/dL (0.20-1.00)
[2019-02-20] MEDS: ROCEPHIN 1 GM in NS 50 ML IV SCH (12:40)
[2019-02-20 13:24] LABS: UR CREAT RANDOM 39.9 mg/dL (14-26); UR PROT RANDOM 38.1 mg/dL
[2019-02-20] MEDS ORDERED: LABETALOL IV ONE (16:53)
[2019-02-20] MEDS ORDERED: LABETALOL IV PRN (18:23)
--- NOTE | 2019-02-20 19:31 | EKG Report ---
Test Performed on : 02/20/2019 5:29:55 PM Test Reason : tachycardia Blood Pressure : / mmHG Vent. Rate : 085 BPM Atrial Rate : 085 BPM P-R Int : 150 ms QRS Dur : 082 ms QT Int : 400 ms P-R-T Axes : 019 -16 061 degrees QTc Int : 476 ms Normal sinus rhythm. Possible Left atrial enlargement Nonspecific T wave abnormality Prolonged QT Abnormal ECG When compared with ECG of 17-FEB-2019 09:53, (Unconfirmed) Nonspecific T wave abnormality now evident in Inferior leads Nonspecific T wave abnormality, worse in Anterior leads Confirmed by Milan GARZA, [place] Kirkland ([id number]) on 02/21/2019 8:30:53 AM
--- NOTE | 2019-02-20 20:22 | PROGRESS NOTE ---
DATE: 02/20/2019 SUBJECTIVE: The patient stated that he was trying to get out of bed, and slipped and fell. He also complains of increasing shortness of breath. OBJECTIVE: Vital Signs: Temperature 97.4 degrees, blood pressure 181/119, heart rate 132, respirations 18, O2 saturation is 100% on 3 L nasal cannula. Intake 360, output 800. General: This is a chronically ill-appearing, elderly male, lying in bed in no acute distress. Head: Normocephalic, atraumatic. Heart: S1, S2 normal. Tachycardic. Lungs: Diminished breath sounds at the bases. Mild expiratory wheezes noted. Abdomen: Positive bowel sounds. Soft, nontender, nondistended. Extremities: No edema. No cyanosis. No calf tenderness. Neurologic: The patient is alert and oriented x3. LABORATORY AND DIAGNOSTIC DATA: White blood cell count 14, hemoglobin 13, hematocrit 40, platelets 177,000. INR 1.4. Sodium 131, potassium 4.6, chloride 94, CO2 of 17, BUN 67, creatinine 3.1, glucose 167. AST 199, ALT 154, alkaline phosphatase 187. Lactate 2.6. Chest x-ray shows pulmonary vascular congestion and small bilateral pleural effusions. ASSESSMENT AND PLAN: 1. Acute hypoxemic respiratory failure. Multifactorial. The patient has pulmonary edema and bilateral pleural effusions,COPD and a lung mass. We will continue to manage the volume, and continue with bronchodilator therapy and supplemental oxygen. Further management as per . 2. Acute pulmonary edema. Improved. Further management as per the napper fixer. 3. Acute on chronic systolic congestive heart failure exacerbation. The patient has an ejection fraction of 10 to 15 percent. We will continue to manage the patient's volume status. 4. Acute kidney injury on chronic kidney disease. The patient's BUN and creatinine have worsened. The patient's urine output remains adequate. We will check urine studies and consult with Nephrology. 5. Elevated liver function tests. We will check a hepatitis profile. We will also order a CT of the abdomen and pelvis. The CEA was noted to be elevated. Will consider a GI consultation. 6. Bilateral pleural effusions. Stable. Unchanged. 7. Hyponatremia. Slightly improved. We will continue to manage the patient's volume status. 8. Chronic obstructive pulmonary disease. Continue with bronchodilator therapy, IV steroids, and supplemental oxygen. 9. Left upper lobe nodule. The patient will likely be set up for an outpatient PET scan as directed by Dr. Morrison. 10. Right upper lobe mass. This will be assessed via PET scan since the patient is not medically stable for a CT-guided biopsy at this time. 11. Cardiomyopathy. Aware. 12. Uncontrolled hypertension. Will adjust the antihypertensive regimen. 13. Alcohol abuse. The patient has been counseled about cessation. 14. Tobacco dependence. The patient has been counseled about cessation. 15. Deep vein thrombosis prophylaxis. Will start the patient on heparin. cc: Becky Guillaume MD MTDD
[2019-02-20] MEDS ORDERED: NORVASC PO SCH (21:00)
[2019-02-20] MEDS: HEPARIN SUBQ SCH (21:13)
[2019-02-20] MEDS: BICITRA PO SCH (21:13)
[2019-02-20] MEDS: COREG PO SCH (21:14)
--- NOTE | 2019-02-20 21:22 | NEPHROLOGY CONSULTATION ---
DATE: 02/20/2019 REASON FOR CONSULTATION: Acute kidney injury. HISTORY OF PRESENT ILLNESS: Mr. Doyle is a 68-year-old white male who has a history of alcoholism, PTSD, COPD, chronic liver disease. He states he came to the hospital because he was falling and severely weak. These symptoms have been insidious in onset, but progressively worsening. He states he had a fall that prompted the transfer to the hospital. This was arranged by his family. His evaluation in the emergency room found his initial blood pressure markedly elevated at 182/130 with heart rate 115, respirations 24, afebrile. His initial laboratory evaluation disclosed creatinine 2.0. We do not have any recent baseline data. Most recent creatinine in the system 0.9 back in 2013. Since admission, he has been treated with methylprednisolone and IV antibiotics (ceftriaxone) as well as inhaled bronchodilators. His blood pressure has remained difficult to control. In this context, his creatinine has risen from 2.0 on presentation to 3.1 today. We are asked to see him in consultation to assist with his management. PAST MEDICAL HISTORY: As above. CURRENT MEDICATIONS: Include carvedilol, albuterol, amlodipine, azithromycin, lorazepam, methylprednisolone, omeprazole, ceftriaxone. ALLERGIES: Penicillin. SOCIAL HISTORY: Heavy alcohol abuse. FAMILY HISTORY: Otherwise noncontributory. REVIEW OF SYSTEMS: Otherwise noncontributory. PHYSICAL EXAMINATION: Vital Signs: Blood pressure 181/119, heart rate 132, respiration 18, afebrile. General: Chronically ill, frail man, in no acute distress. Skin: Pale and dry with few ecchymoses. Conjunctivae are pink. Pupils are equal. Oropharynx is clear. Neck: Neck veins are distended. Heart: PMI is nondisplaced. Regular rate and rhythm. Lungs: Have equal breath sounds. No crackles or wheezes. Abdomen: Soft, nontender. Bowel sounds present. No organomegaly. Extremities: Have 2+ edema. No clubbing or cyanosis. IMPRESSION: Acute kidney injury. Presumed. He had a renal ultrasound performed yesterday which demonstrated 10.5 cm right kidney and 9.6 cm left kidney with small cysts but no hydronephrosis. His urine is noteworthy for low-grade proteinuria and hematuria. It is certainly possible that his severe and uncontrolled hypertension may be affecting his kidney function. No other obvious causes in the short term. We will focus on his blood pressure and follow along. cc: José Briggs MD
--- NOTE | 2019-02-20 22:08 | PULMONOLOGY PROGRESS NOTE ---
DATE: 02/20/2019 SUBJECTIVE: The patient reports he feels generalized weakness. His appetite is improving. He is having some diarrhea. OBJECTIVE: The patient has been afebrile for the last 24 hours. Blood pressure 165/115, heart rate 125, oxygen saturation 97%.HEENT: Pupils are equal and reactive. Oropharynx appears clear. Neck is supple. Chest reveals crackles in both lung bases. Cardiac exam: Increased rate, regular rhythm. Abdomen is soft, with positive bowel sounds. Extremities reveal trace edema. DIAGNOSTIC DATA: Chest x-ray reveals cardiomegaly and vascular congestion. He has decreased pulmonary edema with slight increase in pleural effusion. LABORATORY DATA: White blood count 14.8, hemoglobin 13.7, platelet count 177,000. Sodium 131, potassium 4.6, chloride 94, bicarbonate 17, BUN 67, creatinine 3.1, AST 199, ALT 154, alkaline phosphatase 187. Plasma lactate at noon today 1.6. IMPRESSION: A 68-year-old with: 1. Right upper lobe mass. 2. Solitary pulmonary nodule. 3. Bilateral effusions. 4. Cardiomyopathy with severe reduction in ejection fraction. 5. Severe protein-calorie malnutrition. 6. Hypoxemic respiratory failure. 7. Acute renal failure. 8. Elevated CEA level. PLAN: 1. Continue nutrition as tolerated. 2. We will supplement bicarbonate with Bicitra. 3. Encourage alcohol and smoking cessation for his alcohol addiction, nicotine addiction and tobacco use. 4. Anticipate the need for outpatient PET scan. The patient's status is not adequate to undergo CT-guided biopsy at this time. cc: Steven Morrison MD
[2019-02-21] MEDS: DUONEB (A & A) INH SCH ×6 (03:22→23:35)
[2019-02-21 03:48] LABS: ALLEN TEST YES; BE -6.3 mmoll (-3.0-3.0); BLOOD TYPE ARTERIAL; METHB 1.4 % (0.0-1.5); MODALITY CANNULA; O2HB 96.4 % (95.0-99.0); PCO2(98.6) 29 mmHg (35-45); PO2(98.6) 141 mmHg (60-100); SAMPLE BLOOD; SAO2 100.3 % (95.0-100.0); THB 10.9 g/dL (11.5-17.4); pH(98.6) 7.39 (7.35-7.45)
[2019-02-21] MEDS: SOLU-MEDROL IV SCH ×4 (05:37→21:32)
[2019-02-21] MEDS: PRILOSEC PO SCH ×2 (05:37→06:14)
[2019-02-21 06:13] LABS: INR 1.59; PROTIME 19.2 Seconds (11.0-16.0)
[2019-02-21 06:25] LABS: HEMATOCRIT 37.4 % (42.0-52.0); HEMOGLOBIN 12.6 g/dL (14.0-18.0); IMM GRAN# 0.08 X1000 (0.0-0.04); IMM GRAN% 0.6 % (0.0-0.5); LYMPH# 0.35 X1000 (1.2-3.4); LYMPH% 2.7 % (20.5-51.1); MCH 34.1 PG (27-31); MCHC 33.7 g/dL (33-37); MCV 101.4 FL (81-99); MONO# 0.31 X1000 (0.11-0.59); MONO% 2.4 % (1.7-9.3); MPV 10.1 FL (7.4-10.4); NEUT# 12.02 X1000 (1.4-6.5); NEUT% 94.3 % (42.2-75.2); PLT 129 X1000 (130-400); RBC 3.69 XMIL (4.7-6.1); WBC 12.76 X1000 (4.8-10.8)
[2019-02-21 06:35] LABS: ALBUMIN 3.1 g/dL (3.5-5.0); CALCIUM 9.1 mg/dL (8.8-10.2); CREATININE 2.9 mg/dL (0.7-1.2); PHOSPHORUS 6.2 mg/dL (2.7-4.5); POTASSIUM 5.3 mmol/L (3.5-5.1)
[2019-02-21 07:24] LABS: LYMPHS 2 % (21-51); MONO 4 % (1-9); SEGS 94 % (42-75)
[2019-02-21 07:42] LABS: ALB/GLOB RATIO 1.2; ALBUMIN 3.3 g/dL (3.5-5.0); DIRECT BILIRUBIN 0.6 mg/dL (0.00-0.20); TOTAL BILIRUBIN 0.97 mg/dL (0.20-1.00); TOTAL PROTEIN 6.1 g/dL (6.3-8.3)
[2019-02-21] MEDS ORDERED: SAMSCA PO ONE (07:43)
[2019-02-21] MEDS: COREG PO SCH ×2 (09:02→20:18)
[2019-02-21] MEDS: NICODERM PATCH TD SCH (09:02)
[2019-02-21] MEDS: ZITHROMAX PO SCH (09:02)
[2019-02-21] MEDS: HEPARIN SUBQ SCH (09:03)
[2019-02-21] MEDS: NORVASC PO SCH ×2 (09:03→20:18)
--- NOTE | 2019-02-21 09:12 | Diag Imaging Result Doc PS360 ---
CT ABDOMEN/PELVIS W/O CONTRAST - 02/21/2019 INDICATION: Abdominal pain/elevated LFTs and AFP COMPARISON: Renal ultrasound 02/19/2019. Chest x-ray 02/20/2019. FINDINGS: There are moderate to large bilateral pleural effusions. There is significant cardiomegaly. There is COPD. There is passive atelectasis in the lung bases. There is severe body wall edema. There is trace ascites. There is a stone in the right kidney measuring about 6 mm. No hydronephrosis or hydroureter. There is severe vascular disease. There is a Thompson catheter in the urinary bladder. Prostate and rectum are normal. No definite bowel obstruction or inflammation. There are moderate degenerative changes of the spine. No acute or suspicious bony lesion. IMPRESSION: Nonobstructing right renal stone. Bilateral pleural effusions. Ascites and body wall edema. This exam was performed using automated exposure control, adjustment of mA or kV according to patient size, and/or use of iterative reconstruction technique Electronically signed by Jose Francisco Licea 02/21/2019 9:10 AM
[2019-02-21] MEDS: BICITRA PO SCH ×2 (09:39→20:18)
[2019-02-21] MEDS: ROCEPHIN 1 GM in NS 50 ML IV SCH (11:04)
[2019-02-21] MEDS: LASIX IV SCH (16:03)
--- NOTE | 2019-02-21 16:26 | PULMONOLOGY PROGRESS NOTE ---
DATE: 02/21/2019 SUBJECTIVE: The patient is awake and alert. He is tolerating some p.o. intake. OBJECTIVE: Vital Signs: The patient has been afebrile for the last 24 hours. Blood pressure 130/102, heart rate 87, respiratory rate 22, oxygen saturation 97% on 3 L per nasal cannula. HEENT: Pupils are equal and reactive. Oropharynx appears clear. Neck: Supple. Chest: Reveals diminished breath sounds bilaterally. Cardiac exam: S1, S2. Abdomen: Soft and doughy in consistency. Extremities: Reveal 1+ peripheral edema. LABORATORIES: Sodium 128, potassium 5.3, chloride 94, bicarbonate 16, BUN 77, creatinine 2.9. Transaminases are elevated. White blood count 12.76, hemoglobin 12.6, platelet count 129,000. CT scan of the abdomen and pelvis: Ascites, body wall edema, severe abdominal vascular disease, nephrolithiasis which is nonobstructing in the right kidney, large bilateral pleural effusion, cardiomegaly. IMPRESSIONS: A 68-year-old with: 1. Right upper lobe mass. 2. Solitary pulmonary nodule, left upper lobe. 3. Bilateral effusions. 4. Cardiomyopathy with severe reduction in ejection fraction. 5. Severe protein calorie malnutrition. 6. Poor performance status. 7. Hypoxemic respiratory failure. 8. Acute renal failure. 9. Elevated CEA. PLAN: 1. Continue to encourage p.o. intake. 2. Continue Bicitra. 3. Encourage alcohol and smoking cessation. 4. Diuretic trial. 5. The patient's overall status is too poor to perform a biopsy at this time. He will need to diurese, discontinue alcohol use, and improve his overall status before a biopsy can be performed. cc: Steven Morrison MD
[2019-02-21] MEDS: ATIVAN IV PRN (16:58)
--- NOTE | 2019-02-21 18:02 | PROGRESS NOTE ---
DATE: 02/21/2019 SUBJECTIVE: The patient is somewhat lethargic today. He states that he does not feel well. OBJECTIVE: Vital Signs: Temperature 97.4 degrees, blood pressure 116/89, heart rate 86, respirations 18, O2 saturation is 100% on 3 L nasal cannula. Intake 840. Output 900. General: This is a chronically ill-appearing, elderly male lying in bed, in no acute distress. Head: Normocephalic, atraumatic. Heart: S1, S2 normal. Lungs: Coarse breath sounds bilaterally with crackles. Abdomen: Positive bowel sounds. Soft, nontender. Slightly distended. Extremities: Have 2+ edema bilaterally. Neurologic: The patient is lethargic but is able to move all 4 extremities and answer questions. LABS: White blood cell count 12, hemoglobin 12, hematocrit 37, platelets 129,000. INR 1.5. Sodium 128, potassium 5.3, chloride 94, CO2 16, BUN 77, creatinine 2.9, glucose 138, phosphorus 6.2. CT of the abdomen and pelvis shows a nonobstructing right renal stone. Bilateral pleural effusions. Ascites and body wall edema. ASSESSMENT AND PLAN: 1. Acute hypoxemic respiratory failure. Multifactorial. Continue to treat the underlying issues. 2. Acute pulmonary edema. Continue with diuretic therapy as directed by Dr. Morrison. 3. Acute on chronic systolic congestive heart failure exacerbation. Continue with the current treatment regimen to include diuretics and monitoring of the patient's fluid balance. 4. Hyponatremia. We will give the patient a dose of Samsca and monitor his response. 5. Acute kidney injury on chronic kidney disease. Unchanged. Continue to monitor closely for improvement. The patient is currently receiving diuretic therapy. Nephrology is following. 6. Hypertension. Improved. Continue on the current antihypertensive regimen. 7. Elevated liver function tests. Hepatitis profile is currently pending. An abdominal ultrasound is currently pending as well. May be passive hepatic congestion. Will consult GI tomorrow. 8. Bilateral pleural effusions. Unchanged. Continue with diuretic therapy. 9. Chronic obstructive pulmonary disease. Continue with bronchodilator therapy, IV steroids, and supplemental oxygen. 10. Left upper lobe nodule. Aware. The patient will need an outpatient PET scan. 11. Right upper lobe mass. This will need to be biopsied once the patient is medically stable. Management as per Dr. Morrison. 12. Cardiomyopathy. Aware. 13. Alcohol abuse. Aware. 14. Tobacco dependence. Aware. 15. Coagulopathy. Monitor. 16. Metabolic acidosis. Continue on Bicitra. 17. Hyperkalemia. Monitor. 18. Deep vein thrombosis prophylaxis. Will discontinue the heparin at this time since the patient's platelet count is dropping. 19. Disposition. The patient reports that he wants to be a DNR level 1. His code status has been changed. We will also consult Palliative Care for goals of care. cc: Becky Guillaume MD MTDD
[2019-02-22] MEDS: LASIX IV SCH (02:26)
[2019-02-22] MEDS: DUONEB (A & A) INH SCH ×6 (05:03→23:37)
[2019-02-22] MEDS: SOLU-MEDROL IV SCH ×3 (05:05→21:56)
[2019-02-22] MEDS: PRILOSEC PO SCH ×2 (05:05→06:19)
[2019-02-22 06:08] LABS: HEMATOCRIT 37.6 % (42.0-52.0); HEMOGLOBIN 12.8 g/dL (14.0-18.0); IMM GRAN# 0.02 X1000 (0.0-0.04); IMM GRAN% 0.2 % (0.0-0.5); LYMPH# 0.34 X1000 (1.2-3.4); MONO# 0.32 X1000 (0.11-0.59); MONO% 2.8 % (1.7-9.3); MPV 10.9 FL (7.4-10.4); NEUT# 10.57 X1000 (1.4-6.5); PLT 113 X1000 (130-400); RBC 3.76 XMIL (4.7-6.1); RDW 13.8 % (11.5-14.5); WBC 11.25 X1000 (4.8-10.8)
[2019-02-22 06:10] LABS: ALB/GLOB RATIO 1.1; ALBUMIN 2.9 g/dL (3.5-5.0); DIRECT BILIRUBIN 0.5 mg/dL (0.00-0.20); TOTAL BILIRUBIN 0.74 mg/dL (0.20-1.00); TOTAL PROTEIN 5.6 g/dL (6.3-8.3)
[2019-02-22 06:13] LABS: ALBUMIN 3.1 g/dL (3.5-5.0); CALCIUM 8.5 mg/dL (8.8-10.2); CREATININE 3.7 mg/dL (0.7-1.2); PHOSPHORUS 7.2 mg/dL (2.7-4.5)
[2019-02-22 06:40] LABS: INR 1.58; PROTIME 19.1 Seconds (11.0-16.0)
[2019-02-22] MEDS: COREG PO SCH ×2 (08:46→21:55)
[2019-02-22] MEDS: NICODERM PATCH TD SCH (08:46)
[2019-02-22] MEDS: BICITRA PO SCH ×2 (08:46→21:55)
[2019-02-22] MEDS: ZITHROMAX PO SCH (08:46)
[2019-02-22] MEDS: NORVASC PO SCH ×2 (08:46→21:55)
[2019-02-22 09:32] LABS: HEPATITIS PROFILE ACUTE SEE COMMENTS
[2019-02-22] MEDS: ROCEPHIN 1 GM in NS 50 ML IV SCH (10:10)
--- NOTE | 2019-02-22 10:18 | Diag Imaging Result Doc PS360 ---
CHEST-1 VIEW - 02/22/2019 INDICATION: dyspnea COMPARISON: 02/20/2019 FINDINGS: Stable cardiomegaly. Stable pulmonary vascular congestion. Stable hazy interstitial infiltrates bilaterally consistent with pulmonary edema. Stable small to moderate bilateral pleural effusions. IMPRESSION: No change from prior. Electronically signed by Jose Francisco Licea 02/22/2019 10:16 AM
--- NOTE | 2019-02-22 10:24 | PROGRESS NOTE ---
DATE: 02/22/2019 SUBJECTIVE: The patient is sitting up, eating breakfast. He complains of pain in his legs. OBJECTIVE: Vital Signs: Temperature 97.9 degrees, blood pressure 113/83, heart rate 77, respirations 18, O2 saturation is 98% on room air. Intake 680, output 825. General: This is a thin, emaciated, elderly male, sitting up in bed in no acute distress. Head normocephalic and atraumatic. Heart: S1, S2 normal. Regular rate and rhythm. Lungs: Equal air entry bilaterally. Coarse breath sounds bilaterally with crackles. Abdomen: Positive bowel sounds. Soft, mildly distended. Extremities: There is 2+ edema in the lower extremities. Neurologic: The patient is alert and oriented x4. Labs: White blood cell count 11, hemoglobin 12, hematocrit 37, platelets 113,000. INR 1.5. Sodium 128, potassium 5, chloride 91, CO2 of 19, BUN 93, creatinine 3.7, glucose 168, calcium 7.2. Total bilirubin 0.7, direct bilirubin 0.5, AST 149, ALT 143, alkaline phosphatase 166, albumin 3.1. ASSESSMENT AND PLAN: 1. Acute hypoxemic respiratory failure. Multifactorial. Continue to treat the underlying issues. 2. Acute pulmonary edema. Continue to monitor for improvement. The patient was treated with diuretics yesterday. 3. Acute on chronic systolic congestive heart failure exacerbation. Continue with the current treatment plan. 4. Hyponatremia. Unchanged. 5. Acute kidney injury on chronic kidney disease. The BUN and creatinine are increased. However, the patient did receive diuretic therapy yesterday. Continue to monitor closely. Nephrology is following. 6. Hypertension. Continue on the current antihypertensive regimen. 7. Bilateral pleural effusions. Stable. 8. Hepatitis C. We will consult gastroenterology. 9. Elevated liver function tests. An abdominal ultrasound is planned for today. Gastroenterology has been consulted. 10. Chronic obstructive pulmonary disease. Continue with the current treatment regimen. 11. Left upper lobe nodule. Aware. 12. Right upper lobe mass. Dr. Morrison is following. The patient will need a biopsy once medically stable. 13. Cardiomyopathy. Aware. 14. Metabolic acidosis. Slightly improved. The patient is on Bicitra. 15. Hyperkalemia. Slightly improved. Continue to monitor. 16. Coagulopathy. The patient does not have any active bleeding. Continue to monitor closely. 17. Thrombocytopenia. We will check a heparin-induced thrombocytopenia assay since the patient has been exposed to heparin. 18. Leukocytosis. Slowly improving. Continue with antibiotic therapy. 19. Alcohol abuse. Aware. 20. Tobacco dependence. Aware. 21. Disposition. The patient is a Do Not Resuscitate level 1. Palliative care has been consulted for goals of care. cc: Becky Guillaume MD MTDD
[2019-02-22] MEDS: ATIVAN IV PRN ×2 (10:54→17:03)
[2019-02-22] MEDS ORDERED: VITAMIN K 10 MG in NS 50 ML IV ONE (11:04)
--- NOTE | 2019-02-22 16:27 | NEPHROLOGY PROGRESS NOTE ---
DATE: 02/22/2019 SUBJECTIVE: The patient is sitting up in bed. He states that he "hurts all over." OBJECTIVE: Vital Signs: Temperature 98 degrees, pulse 76, respiratory rate 16, blood pressure 112/83. Intake 680 mL and output 825 mL via Thompson catheter. PHYSICAL EXAMINATION: General: An elderly gentleman sitting up in bed, chronically ill- appearing, wasted, no acute distress. HEENT: Normocephalic, atraumatic. His conjunctivae are pink. His oral mucosa moist. Neck: Supple with positive JVD. Cardiovascular: Regular rate and rhythm. No murmur appreciated. Pulmonary: He is clear bilaterally. He is currently on room air. Abdomen: Soft, with positive bowel sounds. Genitourinary: Thompson catheter. Extremities: He has 1+ pedal edema. He has some trace pretibial edema. Integumentary: Skin is warm and dry. LABORATORY DATA: WBC of 11.2, hemoglobin 12.8. Sodium 128, potassium 5, CO2 of 19, BUN 93, creatinine 3.7 (2.9, 3.1, 2.6). ASSESSMENT AND PLAN: 1. Acute kidney injury. His creatinine has increased over the weekend while he has undergone aggressive diuretic therapy. This has been held starting this morning. We will reevaluate his labs in the morning. No intervention otherwise. 2. Right upper lobe mass, solitary pulmonary nodule, elevated CEA level, followed by pulmonology. The patient's current status is not adequate for him to undergo biopsy at this time. Anticipate outpatient PET scan. Check labs in the morning. Somnolent at the time of my exam (12:30). Had received Ativan. heriberto Dictated by ELEANOR Owens for José Briggs MD Face to face encounter, data reviewed, discussed with Keya Mckinnon on 02/22/19. I agree with the above assessment and plan of care. heriberto cc: MD DEEDEE De La Cruz
--- NOTE | 2019-02-22 18:30 | Diag Imaging Result Doc PS360 ---
EXAM: US ABDOMEN-COMPLETE INDICATION: ascites/elevated LFTs COMPARISON: Renal ultrasound dated 02/19/2019 FINDINGS: The gallbladder is contracted. No discrete stones, wall thickening, or significant pericholecystic fluid is identified. The common bile duct is normal in diameter. Sonographic Navarro's sign was reported to be negative. There is small volume ascites tracking around the liver. The liver echotexture is heterogeneous, nonspecific but possibly indicating cirrhosis. No discrete liver mass is identified. Portal venous flow is hepatopetal. The pancreas is partially obscured. The visualized portion is unremarkable. The IVC appears to be distended. This may be due to fluid overload. There is aortic atherosclerotic disease. The spleen is unremarkable. There is mild prominence of the left renal collecting system of unknown acuity. There is a 1 cm left renal cyst. A large right pleural effusion is noted incidentally. IMPRESSION: 1.Small volume ascites. 2.Large right pleural effusion. 3.Distended IVC which can indicate fluid overload. 4.Heterogeneous hepatic echotexture, nonspecific but can be seen with cirrhosis. 5.Mild dilation of the left renal collecting system of unknown acuity. Electronically signed by Sonido Lr 02/22/2019 6:27 PM
[2019-02-23] MEDS: DUONEB (A & A) INH SCH ×6 (03:26→23:20)
[2019-02-23] MEDS: SOLU-MEDROL IV SCH ×3 (06:39→21:57)
[2019-02-23] MEDS: PRILOSEC PO SCH (06:40)
[2019-02-23 06:59] LABS: HEMATOCRIT 39.9 % (42.0-52.0); HEMOGLOBIN 13.5 g/dL (14.0-18.0); IMM GRAN# 0.13 X1000 (0.0-0.04); IMM GRAN% 1.2 % (0.0-0.5); LYMPH% 1.8 % (20.5-51.1); MCH 34.6 PG (27-31); MCHC 33.8 g/dL (33-37); MCV 102.3 FL (81-99); MONO# 0.29 X1000 (0.11-0.59); MONO% 2.7 % (1.7-9.3); MPV 11.1 FL (7.4-10.4); NEUT# 10.22 X1000 (1.4-6.5); NEUT% 94.3 % (42.2-75.2); PLT 87 X1000 (130-400); RDW 13.7 % (11.5-14.5); WBC 10.84 X1000 (4.8-10.8)
[2019-02-23 07:03] LABS: INR 1.58; PROTIME 19.1 Seconds (11.0-16.0)
[2019-02-23 07:18] LABS: ALB/GLOB RATIO 1.3; ALBUMIN 2.9 g/dL (3.5-5.0); DIRECT BILIRUBIN 0.4 mg/dL (0.00-0.20); TOTAL BILIRUBIN 0.64 mg/dL (0.20-1.00); TOTAL PROTEIN 5.2 g/dL (6.3-8.3)
[2019-02-23 07:54] LABS: ALBUMIN 2.9 g/dL (3.5-5.0); CALCIUM 8.7 mg/dL (8.8-10.2); CREATININE 3.9 mg/dL (0.7-1.2); PHOSPHORUS 6.9 mg/dL (2.7-4.5); POTASSIUM 4.7 mmol/L (3.5-5.1)
--- NOTE | 2019-02-23 08:19 | Diag Imaging Result Doc PS360 ---
EXAM: CHEST-PORTABLE 02/23/2019 HISTORY: Dyspnea, retractions TECHNIQUE: AP portable at 0810 COMMENT: There are bilateral pleural effusions. There is pulmonary edema and/or pneumonia particularly in the lower lobes. Compared to 02/22/2019 the pulmonary edema may be slightly worse. IMPRESSION: Pulmonary edema and pleural effusions. Electronically signed by Trey Matamoros 02/23/2019 8:17 AM
--- NOTE | 2019-02-23 08:23 | GASTROENTEROLOGY CONSULTATION ---
DATE: 02/17/2019 ADMITTING PHYSICIAN: Becky Guillaume MD PRIMARY CARE DOCTOR: None. REASON FOR CONSULTATION: Hepatitis C antibody positive, elevated liver enzymes. HISTORY OF PRESENT ILLNESS: Mr. Doyle is a 68-year-old male who was admitted on 02/17/2019 for symptoms of shortness of breath. He was treated for right lower lobe pneumonia. He also was noted to have elevated liver enzymes. The patient drinks about 6 to 8 beers a day, and his last drink was night before admission. The patient also is a chronic smoker. He smokes 2 packs a day. He uses marijuana regularly. The patient has history of chronic liver disease in the past. He has history of intravenous drug abuse for many years. He was noted to hepatitis C antibody positive. Hepatitis C PCR is currently pending. Gastroenterology was consulted for further management. PAST MEDICAL HISTORY: COPD, liver disease, alcoholism, positive hepatitis C antibody, PTSD from [place], tobacco abuse 2 packs a day. PAST SURGICAL HISTORY: Right thigh surgery. SOCIAL HISTORY: He smokes 2 packs a day. He drinks 6 to 8 beers a day. He uses marijuana regularly. He has history of intravenous drug abuse. He said he has quit recently. ALLERGIES: Penicillin. MEDICATIONS IN THE HOSPITAL: Included Coreg, DuoNeb inhaler, Norvasc, Zithromax, Bicitra, labetalol, Ativan, Solu-Medrol 60 mg IV q.8, NicoDerm patch 21 mg transdermal daily, omeprazole 40 mg daily, ceftriaxone 1 g every 24 hours, Samsca given once yesterday. The patient is currently on Ensure and regular diet. REVIEW OF SYSTEMS: A 12-point review of systems was reviewed with the patient, and the positive findings are shortness of breath, pneumonia, COPD and chronic tobacco abuse and chronic alcohol abuse and chronic liver disease. The patient denies any nausea, vomiting, vomiting blood, or passing blood in the stools. PHYSICAL EXAMINATION: Vital signs: Temperature 97.9 degrees, pulse of 77, respiratory rate 18, blood pressure 113/83, saturating 98% on room air. Body weight of 147 pounds 1.6 ounces, BMI 19.4 kg/m2. General Appearance: Thinly built, lying in bed, in no acute distress. HEENT: Mild pallor. No icterus. Pupils equal, reactive to light and accommodation. Neck: Supple. Abdomen: Protuberant. Positive ascites. Positive anasarca. No rebound or guarding. Extremities: Bilateral mild lower extremity edema noted. Neurological: He is alert, awake, and answers simple questions. LABORATORY DATA: Hemoglobin and hematocrit is 12.8 and 37.6, white count 11.25, platelet count of 113,000, INR 1.58, PT of 19.1, sodium of 120, potassium 5, chloride 91, bicarb of 19, BUN of 93, creatinine 3.7, glucose of 168, calcium is 7.2, total bilirubin is 0.74, AST 149, ALT 143, alkaline phosphatase 1.62, total protein 5.6, albumin of 3.1, direct bilirubin of 0.5. AFP is 2.8, which is normal. CEA is 14.9. UA: Positive protein, moderate blood, 10 to 20 red cells. Hepatitis panel showed positive hepatitis C antibody. PCR is currently pending. Blood culture x2 negative at 48 hours from 02/20/2019, and Chest x-ray done today showed stable cardiomegaly, stable pulmonary venous vascular congestion, stable hazy interstitial infiltrates bilaterally consistent with pulmonary edema, stable mild to moderate bilateral pleural effusions. IMPRESSION AND PLAN: 1. Acute hypoxic respiratory failure secondary to acute pulmonary edema, acute on chronic congestive heart failure, pneumonia and baseline chronic obstructive pulmonary disease. This is being managed by the primary care team. 2. Hepatitis C antibody positive. We will follow up on the PCR. The patient will follow up in the clinic as an outpatient for further workup. 3. Elevated liver enzymes likely secondary to a combination of alcoholic liver disease and chronic hepatitis C. Continue to avoid hepatotoxic drugs. Follow liver enzymes. Follow up the liver ultrasound, abdominal ultrasound which is scheduled for today. 4. Chronic obstructive pulmonary disease. Patient will continue on nebulizer treatment. 5. Right upper lobe mass. Dr. Morrison is following. 6. Cardiomyopathy, aware. 7. Coagulopathy. I will give him a dose of vitamin K 10 mg IV once for 3 days. 8. Mild thrombocytopenia. Continue to watch for now. 9. Alcohol abuse. Patient counseled to quit alcohol completely. We will start him on multivitamin, thiamine and folate. 10. Tobacco abuse. Patient counseled to quit smoking completely. 11. Electrolyte imbalance. This is being managed by primary team. Above plans discussed with the patient, and all questions answered. Please call us with any further questions. cc: MD Yvan Pinto MD [facility]
--- NOTE | 2019-02-23 08:40 | PULMONOLOGY PROGRESS NOTE ---
DATE: 02/22/2019 SUBJECTIVE: The patient is sitting in his bed. He is awake and alert. He has a slightly flat affect. He has audible rhonchi with coughing. OBJECTIVE: Vital Signs: The patient is afebrile for the last 24 hours. Blood pressure 129/82, heart rate 83, respiratory rate 24, oxygen saturation 94% on 2 L per nasal cannula. HEENT: Pupils are equal and reactive. Oropharynx appears clear. Neck: Supple. Chest reveals rhonchi bilaterally. Cardiovascular: S1-S2. Abdomen: Soft. EXTREMITIES: Without edema. LABORATORY DATA: Chest x-ray reveals generous cardiac silhouette, mild vascular congestion, bilateral effusions. Sodium 128, potassium 5.0, chloride 91, bicarbonate 19, BUN 93, creatinine 3.7. White blood count 11.25, hemoglobin 12.8, platelet count [id number], and declining. IMPRESSION: A 68-year-old with: 1. Right upper lobe mass. 2. Left upper lobe nodule. 3. Elevated CEA level. 4. Bilateral pleural effusions. 5. Cardiomyopathy with severe reduction in ejection fraction. 6. Poor performance status. 7. Protein calorie malnutrition. 8. Acute renal failure. 9. Hypoxemic respiratory failure. DISCUSSION: A 68-year-old with problems outlined above. The patient may indeed have a lung cancer, which has not yet been confirmed. However, with his current multiorgan dysfunction, he is not a candidate for aggression all aggressive evaluation at this juncture. If lung cancer were discovered, he would not be a candidate for treatment at this juncture. He will need to improve significantly before he might be a candidate for additional evaluation from a pulmonary standpoint. RECOMMENDATIONS: 1. Encourage p.o. intake. 2. Continue bronchial hygiene. 3. Additional pulmonary workup pending significant improvement in his functional status. cc: Steven Morrison MD
[2019-02-23] MEDS ORDERED: LASIX IV SCH (09:00)
--- NOTE | 2019-02-23 10:04 | PROGRESS NOTE ---
DATE: 02/23/2019 SUBJECTIVE: Mr. Doyle came in on 02/17/2019 and was admitted with pneumonia, alcohol abuse and hyponatremia. He does seem to be doing a little better. His chest x-ray today shows pulmonary edema and pleural effusions. OBJECTIVE: Awake, I think he is oriented to person, and I think he knows he is in the hospital. Temperature 97.5, pulse 76, respirations 24, blood pressure 128/80. Pupils are equal and round. Lungs are clear in all lung strickland. Cardiovascular exam: Regular rhythm and rate without murmur or S3. Abdomen is soft, nontender and nondistended. Urine output is 2400 mL. ASSESSMENT AND PLAN: 1. Acute hypoxemic respiratory failure secondary to acute pulmonary edema, acute on chronic congestive heart failure, pneumonia, baseline COPD. 2. Hepatitis C antibiotic positive. Follow up on his PCR. The patient is to follow up in outpatient clinic. 3. Elevated liver enzymes secondary to combination of alcoholic liver disease, chronic hepatitis C. Continue to avoid hepatotoxic drugs, follow liver enzymes, liver ultrasound, abdominal ultrasound which I believe we got yesterday. 4. COPD. 5. Right upper lobe mass. Dr. Morrison following. 6. Cardiomyopathy. 7. Coagulopathy. Will give him some Vitamin K 10 mg once a day for 3 days. 8. Mild thrombocytopenia. Continue to follow. 9. Alcohol abuse. He has been counseled to quit drinking. He is on multivitamin, thiamine and folate. 10.Tobacco abuse. He has been counseled to quit smoking completely. His electrolytes look better, sodium 133, potassium 4.7, chloride 95, BUN 98, creatinine 3.9. 11.Renal insufficiency noted, stable. White count 10,840, hematocrit 39, platelet count 87,000. cc: Kwan Chow MD
[2019-02-23] MEDS: NICODERM PATCH TD SCH (10:30)
[2019-02-23] MEDS: BICITRA PO SCH ×2 (10:30→21:57)
[2019-02-23] MEDS: CENTRUM SILVER PO SCH (10:31)
[2019-02-23] MEDS: NORVASC PO SCH ×2 (10:31→21:57)
[2019-02-23] MEDS: COREG PO SCH ×2 (10:31→21:57)
[2019-02-23] MEDS: VITAMIN B-1 PO SCH (10:31)
[2019-02-23] MEDS: ZITHROMAX PO SCH (10:31)
[2019-02-23] MEDS: FOLIC ACID PO SCH (10:31)
[2019-02-23] MEDS: ROCEPHIN 1 GM in NS 50 ML IV SCH (11:55)
--- NOTE | 2019-02-23 12:26 | NEPHROLOGY PROGRESS NOTE ---
DATE: 02/23/2019 SUBJECTIVE: Patient is sitting up in bed. He is obviously short of breath. He states he has had some cough with production of white sputum. OBJECTIVE: Vital Signs: Temperature 97.4 degrees, pulse 78, respiratory rate 20, blood pressure 121/85 intake 1.1 L, output 800 mL. General: This is a middle-aged gentleman, sitting up in bed. HEENT: Normocephalic atraumatic. Conjunctivae are pink. Neck: Supple. Positive JVD. Cardiovascular: Regular rate and rhythm. Pulmonary: He has some scattered rhonchi bilaterally but no wheeze or rales. He has some retractions noted. Abdomen: Soft. Positive bowel sounds. Genitourinary: Again with Thompson catheter. Extremities: 1+ trace pretibial edema. Integumentary: Skin is warm and dry. LABORATORY DATA: Hemoglobin 13.5, sodium 133, potassium 4.7, CO2 20, creatinine 3.9, BUN 98, calcium 8.7, phosphorus 6.9 albumin 2.9. IMAGING: Chest x-ray ordered at the time of exam indicates bilateral pleural effusions, pulmonary edema and/or pneumonia, particularly to the left lobes. Compared to imaging 24 hours prior, pulmonary edema is slightly worse. ASSESSMENT AND PLAN: 1. Acute kidney injury. His diuretics were stopped yesterday secondary to the elevated creatinine and BUN. His creatinine today is not significantly different although it is not improved. What is noticeable is that his respiratory status has declined and imaging indicates that his pulmonary edema is worse. I will restart diuretics today. Check labs in the morning. 2. Right upper lobe mass. Solitary pulmonary nodule, elevated CEA level. He is being followed by Pulmonology. 3. Electrolytes and acid-base balance. These are acceptable. Dictated by ELEANOR Owens for José Briggs MD Face to face encounter, data reviewed, discussed with Keya Mckinnon on 02/23/19. I agree with the above assessment and plan of care. cc: José Briggs MD [facility]
--- NOTE | 2019-02-23 14:59 | PROVIDER PROGRESS NOTE ---
Progress Note S: No acute overnight events. No N/V/F. Patient is tolerating diet. O: Last Vital Signs Temp 98.8 F 02/23/19 12:00 Pulse 77 02/23/19 12:00 Resp 18 02/23/19 12:00 BP 135/82 02/23/19 12:00 Pulse Ox 94 L 02/23/19 12:00 Height 6 ft 1 in Weight 147 lb 1.6 oz GEN: cachetic, NAD, drowsy but arousable, answers questions appropriately, soft spoken HEENT: anicteric, MMM NECK: supple, no JVD or LAD CV: RRR, no murmurs PULM: decreased BS throughout, no wheezing ABD: distended, soft NT, bulging flanks, BS present EXT: thin, no cce MSK: muscle wasting in extremities NEURO: nonfocal; no asterixis, AAOx3 LABS: 02/19/19 02/19/19 02/19/19 15:24 15:24 15:24 WBC Hgb Plt Count INR Sodium Potassium Chloride Carbon Dioxide Anion Gap BUN Creatinine Glucose Calcium Phosphorus Total Bilirubin Direct Bilirubin AST ALT Alkaline Phosphatase Total Protein Albumin Carcinoembryonic Ag 14.9 H Vitamin B12 1081 H Folate 25.8 02/23/19 02/23/19 02/23/19 06:20 06:20 06:20 WBC 10.84 H Hgb 13.5 L Plt Count 87 L INR 1.58 Sodium 133 L Potassium 4.7 Chloride 95 L Carbon Dioxide 20 L Anion Gap 18 BUN 98 H Creatinine 3.9 H Glucose 147 H Calcium 8.7 L Phosphorus 6.9 H Total Bilirubin 0.64 Direct Bilirubin 0.40 H AST 137 H ALT 149 H Alkaline Phosphatase 164 H Total Protein 5.2 L Albumin 2.9 L Carcinoembryonic Ag Vitamin B12 Folate EXAM: CHEST-PORTABLE 02/23/2019 COMMENT: There are bilateral pleural effusions. There is pulmonary edema and/or pneumonia particularly in the lower lobes. Compared to 02/22/2019 the pulmonary edema may be slightly worse. IMPRESSION: Pulmonary edema and pleural effusions. Abdominal US 02/22 IMPRESSION: 1.Small volume ascites. 2.Large right pleural effusion. 3.Distended IVC which can indicate fluid overload. 4.Heterogeneous hepatic echotexture, nonspecific but can be seen with cirrhosis. 5.Mild dilation of the left renal collecting system of unknown acuity. CT ABDOMEN/PELVIS W/O CONTRAST - 02/21/2019 INDICATION: Abdominal pain/elevated LFTs and AFP COMPARISON: Renal ultrasound 02/19/2019. Chest x-ray 02/20/2019. FINDINGS: There are moderate to large bilateral pleural effusions. There is significant cardiomegaly. There is COPD. There is passive atelectasis in the lung bases. There is severe body wall edema. There is trace ascites. There is a stone in the right kidney measuring about 6 mm. No hydronephrosis or hydroureter. There is severe vascular disease. There is a Thompson catheter in the urinary bladder. Prostate and rectum are normal. No definite bowel obstruction or inflammation. There are moderate degenerative changes of the spine. No acute or suspicious bony lesion. IMPRESSION: Nonobstructing right renal stone. Bilateral pleural effusions. Ascites and body wall edema. ORDER DATE: 02/17/2019 INDICATION: CHF. FINDINGS: 1. Right atrium is moderately enlarged. 2. Mild tricuspid regurgitation. Right ventricular systolic pressure of 48. 3. The right ventricle appears to have mild reduction in right ventricular systolic function. 4. No significant pulmonic insufficiency. 5. Severe left atrial enlargement. Dimension of 5.1 cm. Volume index of 47. 6. No mitral prolapse. Mild mitral regurgitation. No evidence of mitral stenosis. 7. Normal left ventricle size. The end-diastolic dimension is 5.3 cm. Normal wall thicknesses with a posterior and interventricular septal wall thickness 1.1 and 1.0 cm, respectively. Severe reduction in left ventricle systolic function with an estimated ejection fraction of 10 to 15 percent. Optison echo contrast was used. There is no clear evidence of left ventricular thrombus. 8. Aortic valve opens well. No evidence of stenosis or insufficiency. 9. Aorta appears normal in visualized segments. 10. No pericardial effusion is identified. A/P: Mr. Alan Doyle is a 68 year old man with COPD, tobacco abuse, alcoholism who presented with SOB found to have severe systolic CHF exacerbation with EF 10- 15%. Workup including CT chest showed RUL pulmonary mass. He also has HCV/ETOH cirrhosis with elevated CEA. Labs notable for hyponatremia, GRAHAM, thrombocytopenia. He is severely malnourished. Pulmonary and renal following. He is being diuresed with IV lasix with worsening BUN/Cr. CXR shows pulmonary edema and effusions. He also has small amount of ascites. # Decompensated HCV/ETOH cirrhosis: - Cirrhosis: trending LFTs, INR - Ascites: small volume; continue diuresis; low NA diet, daily weights - PSE: no evidence of hepatic encephalopathy - HCC screening: US neg for hepatoma - EV screening: no prior EGD - OLT: not a candidate given lung mass and alcoholism # GRAHAM: unknown baseline Cr: undergoing diuresis per renal; will give albumin 50gm x1 today; I am concerned for ATN vs. HRS; defer mgmt # HCV: not a candidate for treatment # Alcoholism: thiamine, folate, MVI, CIWA # Protein calorie malnutrition: recommend high protein calorie diet # Coagulopathy: receiving vitamin K; no overt bleeding # Elevated CEA: I would not recommend endoscopic evaluation given his overall poor prognosis; he is not a surgical or chemotherapy candidate at this time # CHF exacerbation: EF 10-15% defer mgmt # Lung mass: not a candidate for treatment per pulm; defer mgmt # COPD: on CTX, azithromcyin, duonebs and steroids Agree with palliative care consultation. Overall, prognosis poor. Consider hospice.
[2019-02-23] MEDS ORDERED: ALBUMIN 25% IV ONE (15:06)
[2019-02-23] MEDS: LASIX IV SCH (18:41)
--- NOTE | 2019-02-23 22:25 | PULMONOLOGY PROGRESS NOTE ---
DATE: 02/23/2019 SUBJECTIVE: The patient is sleeping upon arrival. He is arousable. He remains weak. His p.o. intake is marginal. OBJECTIVE: Vital signs: The patient has been afebrile for the last 24 hours. Blood pressure 121/80, heart rate 74, respiratory rate 24, oxygen saturation 94% on nasal cannula. HEENT: Pupils are equal. Oropharynx appears clear. Neck: Supple. Chest: Reveals decreased breath sounds bilaterally. Cardiac: S1, S2. Abdomen: Soft. Extremities: Without edema. LABORATORIES: Chest x-ray reveals cardiomegaly, mild vascular congestion, bibasilar effusions. IMPRESSION: A 68-year-old with 1. Right upper lobe mass. 2. Left upper lobe nodule. 3. Elevated CEA. 4. Pleural effusions. 5. Cardiomyopathy with severe reduction in ejection fraction. 6. Acute hypoxemic respiratory failure. 7. Protein calorie malnutrition. 8. Extremely poor performance status. DISCUSSION: A 68-year-old with problems outlined above. He is not thriving. He has evidence of pulmonary, cardiac, liver, and renal disease. He may have a lung cancer, but this has not yet been proven. He is too weak to undergo an aggressive evaluation, such as a CT-guided biopsy or bronchoscopy. It is not clear that he will improve to the point that he can be further evaluated. PLAN: 1. Continue current bronchial hygiene. 2. Continue oxygen therapy. 3. Ongoing palliative measures at this juncture, pending significant improvement in his clinical status. cc: Steven Morrison MD
[2019-02-24] MEDS: DUONEB (A & A) INH SCH ×6 (03:33→23:42)
[2019-02-24] MEDS: SOLU-MEDROL IV SCH ×3 (05:37→21:44)
[2019-02-24] MEDS: LASIX IV SCH ×2 (05:38→17:38)
[2019-02-24] MEDS: PRILOSEC PO SCH ×2 (05:38→06:54)
[2019-02-24 06:56] LABS: ALB/GLOB RATIO 1.7; ALBUMIN 3.4 g/dL (3.5-5.0); DIRECT BILIRUBIN 0.4 mg/dL (0.00-0.20); TOTAL BILIRUBIN 0.69 mg/dL (0.20-1.00); TOTAL PROTEIN 5.4 g/dL (6.3-8.3)
[2019-02-24 07:26] LABS: ALBUMIN 3.6 g/dL (3.5-5.0); CALCIUM 8.3 mg/dL (8.8-10.2); CREATININE 3.8 mg/dL (0.7-1.2); PHOSPHORUS 7.1 mg/dL (2.7-4.5); POTASSIUM 4.2 mmol/L (3.5-5.1)
[2019-02-24] MEDS: VITAMIN B-1 PO SCH (09:12)
[2019-02-24] MEDS: NORVASC PO SCH ×2 (09:12→21:44)
[2019-02-24] MEDS: ZITHROMAX PO SCH (09:12)
[2019-02-24] MEDS: BICITRA PO SCH ×2 (09:12→22:08)
[2019-02-24] MEDS: COREG PO SCH ×2 (09:13→21:44)
[2019-02-24] MEDS: CENTRUM SILVER PO SCH (09:13)
[2019-02-24] MEDS: FOLIC ACID PO SCH (09:13)
[2019-02-24] MEDS: NICODERM PATCH TD SCH (09:15)
[2019-02-24] MEDS: ROCEPHIN 1 GM in NS 50 ML IV SCH (11:43)
--- NOTE | 2019-02-24 13:46 | PROGRESS NOTE ---
DATE: 02/24/2019 SUBJECTIVE: Mr. Doyle was eating breakfast and he seems to be feeling better. He had no complaints of pain. OBJECTIVE: Vitals: Temperature 97.6 degrees, pulse 76, respirations 18, blood pressure 132/91. HEENT: Pupils are equal and round. Lungs: Clear in all lung strick[place]. Cardiovascular: Regular rhythm and rate without murmur or S3. Abdomen: Soft. Skin: Warm and dry. URINE OUTPUT: 3300 mL. ASSESSMENT: 1. Right upper lobe mass. 2. Left upper lobe nodule. 3. Elevated CEA. 4. Pleural effusions. 5. Cardiomyopathy, with severe reduction in ejection fraction. 6. Acute hypoxemic respiratory failure. 7. Protein calorie malnutrition. 8. Extreme poor performance status, weakness, deconditioning. PLAN: He has evidence of pulmonary, cardiac, liver and renal disease, may have lung cancer, but this has not yet been declared. He is too weak to undergo aggressive evaluation such as CT-guided biopsy or bronchoscopy, and is not clear whether he will improve enough to be able to evaluate, so, continue present bronchial hygiene, supplementary oxygen, physical therapy. I think we are trying to pursue discharge planning, possibly to rehab or considering hospice. REVIEW OF ORDERS: I do not see any change. He is on Coreg 12.5 mg p.o. q.12h, Norvasc 5 mg b.i.d., folic acid 1 mg p.o. daily, Lasix 80 mg IV q.12, labetalol 20 mg IV q.4 hours p.r.n., Ativan 2 mg IV q.4 hours p.r.n., methylprednisone 60 mg IV q.8, multivitamin, nicotine patch, omeprazole 40 mg daily, ceftriaxone 1 g IV q.24 hours, and thiamine 100 mg daily. He was given some albumin yesterday, [address] Olsen. cc: Kwan Chow MD
--- NOTE | 2019-02-24 14:39 | NEPHROLOGY PROGRESS NOTE ---
DATE: 02/24/2019 SUBJECTIVE: Patient is sitting up in the bed. He states that his breathing is much better from yesterday. OBJECTIVE: Vital Signs: Temperature 97.6, pulse 79, respiratory rate 20, blood pressure 132/91. Intake 560 mL,output 2.1 L. General: This is a chronically, acutely ill appearing gentleman, sitting up in bed. He is in no acute distress today. HEENT: Normocephalic, atraumatic. Conjunctivae are pink. Neck is supple +JVD. Cardiovascular: Regular rate and rhythm. Pulmonary: He is clear today. He has no rhonchi or retractions noted. Abdomen: Soft with positive bowel sounds Extremities: Trace edema. Skin: Warm and dry. LAB DATA: Sodium 133, potassium 4.2, CO2 24, creatinine 3.8. Chest x-ray yesterday. He had pulmonary edema and pleural effusions noted on his chest x-ray. ASSESSMENT AND PLAN: 1. Acute kidney injury. His creatinine has been fairly stable over the last 48 hours. He did have his diuretic stopped yesterday or day before. When we evaluated him yesterday he had dyspnea and retractions. Chest x-ray indicated pulmonary edema he dosed with 80 of Lasix twice a day. 2. Right upper lobe mass, solitary pulmonary nodule, elevated CEA followed by Pulmonology. Dictated by ELEANOR Owens for José Briggs MD Face to face encounter, data reviewed, discussed with Keya Mckinnon on 02/24/19. I agree with the above assessment and plan of care. cc: José Briggs MD [facility]
[2019-02-25] MEDS: DUONEB (A & A) INH SCH ×6 (03:40→23:19)
[2019-02-25] MEDS: PRILOSEC PO SCH ×2 (05:48→06:57)
[2019-02-25] MEDS: LASIX IV SCH ×2 (05:49→18:30)
[2019-02-25] MEDS: SOLU-MEDROL IV SCH ×2 (06:26→14:23)
[2019-02-25 07:38] LABS: HEMOGLOBIN 13.9 g/dL (14.0-18.0); MCHC 33.9 g/dL (33-37); MCV 100.2 FL (81-99); RBC 4.09 XMIL (4.7-6.1); RDW 13.5 % (11.5-14.5); WBC 12.88 X1000 (4.8-10.8)
[2019-02-25 08:31] LABS: ALBUMIN 3.5 g/dL (3.5-5.0); CALCIUM 8.7 mg/dL (8.8-10.2); CREATININE 3.4 mg/dL (0.7-1.2); PHOSPHORUS 6.7 mg/dL (2.7-4.5); POTASSIUM 3.3 mmol/L (3.5-5.1)
[2019-02-25] MEDS: VITAMIN B-1 PO SCH (09:20)
[2019-02-25] MEDS: BICITRA PO SCH ×2 (09:20→22:40)
[2019-02-25] MEDS: NICODERM PATCH TD SCH (09:21)
[2019-02-25] MEDS: COREG PO SCH ×2 (09:21→22:40)
[2019-02-25] MEDS: CENTRUM SILVER PO SCH (09:21)
[2019-02-25] MEDS: FOLIC ACID PO SCH (09:21)
[2019-02-25] MEDS: NORVASC PO SCH ×2 (09:21→22:40)
[2019-02-25] MEDS: ZITHROMAX PO SCH (09:21)
[2019-02-25] MEDS: ROCEPHIN 1 GM in NS 50 ML IV SCH (11:21)
[2019-02-25] MEDS ORDERED: VITAMIN K 10 MG in NS 50 ML IV ONE (12:51)
--- NOTE | 2019-02-25 16:36 | NEPHROLOGY PROGRESS NOTE ---
DATE: 02/25/2019 SUBJECTIVE: Patient is sitting up in bed. He states his breathing is much better. OBJECTIVE: Vital signs: Temperature 97.4 degrees, pulse 72, respiratory rate 18, blood pressure 133/80. Intake 240 mL. Output 3.4 L. General: This is a chronically ill appearing, elderly gentleman sitting up in bed. Awake, alert, no acute distress. HEENT: Normocephalic, atraumatic. [place]. Neck: Supple. Trace JVD. Cardiovascular: Regular rate and rhythm. Pulmonary: No wheezes, rales, or rhonchi. No retractions. Abdomen: Soft. Positive bowel sounds. : Thompson catheter. Extremities: No clubbing, cyanosis, or edema. Integumentary: Skin is warm and dry. LAB DATA: WBC of 12.8, hemoglobin 13.9. Sodium 134, potassium 3.3, CO2 21, creatinine 3.4 (3.8), phosphorus 6.7, albumin 3.5. ASSESSMENT AND PLAN: 1. Acute kidney injury. Renal function remains fairly stable. No indications for intervention otherwise. 2. Fluid volume overload. It appears that he has diuresed nicely over the last couple of days. We will reduce the amount of Lasix that he is getting but will not discontinue it yet. 3. Right upper lobe mass, solitary pulmonary nodule. Followed by Pulmonology. Dictated by ELEANOR Owens for José Briggs MD Face to face encounter, data reviewed, discussed with Keya Mckinnon on 02/25/19. I agree with the above assessment and plan of care. cc: José Briggs MD [facility]
--- NOTE | 2019-02-25 17:10 | GASTROENTEROLOGY PROGRESS NOTE ---
DATE: 02/25/2019 SUBJECTIVE: Patient resting in bed. I spoke with the patient's family at bedside. The patient has been eating slightly better. He had 1 bowel movement today which was brown. He denies any nausea, vomiting, or vomiting blood. OBJECTIVE: Vital signs: Temperature 97.6, pulse of 77, respiratory rate 18, blood pressure 120/62, saturating 97% on nasal cannula. Body weight 147 pounds, 1.6 ounces. BMI 19.4 kg/m. General: He is thinly built, lying in bed, in no acute distress. HEENT: Mild pallor. No icterus. Neck: Supple. Abdomen: Mildly distended. Positive anasarca. Mild discomfort in the periumbilical region. No rebound. Extremities: No cyanosis, clubbing. Neurologic: He is alert, awake, and answers questions. Family at bedside. LABS: Hemoglobin and hematocrit is 13.9 and 41, white count of 12.8, platelet count of 79. Sodium 134, potassium 3.3, chloride 91, bicarb of 21. Anion gap of 22, BUN of 99 creatinine 3.4, glucose of 133. Calcium 8.7, phosphorus 6.7. Albumin is 3.5, total bilirubin 0.69, direct of 0.4, AST 131, ALT 140, alkaline phosphatase 137. Hepatitis C antibody is positive. Hepatitis C PCR is currently pending. Blood culture x2 was negative at 48 hours on 02/20/2019. IMPRESSION: 1. Right upper lobe mass. 2. Left upper lobe nodule. 3. Elevated CEA. 4. Pleural effusion. 5. Cardiomyopathy with severe reduction in ejection fraction. 6. Acute hypoxic respiratory failure. 7. Protein-calorie malnutrition. 8. Hepatitis C antibody positive. We will follow up on hepatitis C PCR. 9. History of alcoholism, causing alcoholic cirrhosis, complicated with mild anemia, thrombocytopenia, coagulopathy, elevated liver enzymes. RECOMMENDATIONS: 1. Continue to follow liver enzymes and INR. Since the patient has ascites, will take low-sodium diet and daily weights. Continue to diurese as tolerated. 2. Hepatocellular carcinoma screening. Ultrasound is negative for hepatoma, and the patient currently does not have any evidence of hepatic encephalopathy. 3. Alcoholism. Patient will continue on thiamine, folate, and multivitamin. 4. Coagulopathy. Received vitamin K. 5. Elevated CEA. Hold off on any kind of endoscopic intervention, given his overall poor prognosis. 6. Congestive heart failure. Ejection fraction of 10% to 15%. Defer management to primary care team. 7. Lung mass. Not a candidate for treatment per Pulmonary team. 8. Chronic obstructive pulmonary disease. He is on steroids, DuoNeb and antibiotics. 9. Will follow the patient in the clinic if he wants to pursue further care for hepatitis C management and liver cirrhosis. At this moment, we will sign off. The above plans were discussed with the patient and family, and all questions were answered. Please call us with any further questions. cc: MD Kwan Kwong MD MTDD
--- NOTE | 2019-02-25 17:40 | PROGRESS NOTE ---
DATE: 02/25/2019 SUBJECTIVE: Mr. Doyle still wants to go home and I think there are some discussions. I think his girlfriend had some concerns about hospice. They were going to talk with them today. OBJECTIVE: Vital signs: Temp 98.4 degrees, pulse 75, respirations 16, blood pressure 137/78. HEENT: Pupils are equal and round. Lungs: Clear in all lung [place]. Cardiovascular: Regular rhythm and rate without murmur or S3. Urine output 5200 mL. ASSESSMENT AND PLAN: 1. Acute renal injury. Renal function remains fairly stable. No indications for dialysis or intervention. 2. He presented with fluid volume overload. He has diuresed nicely over the last couple days so we reduced the amount of Lasix. 3. Right upper lobe mass, solitary pulmonary nodule. Pulmonary following. I believe that the patient wants to go home and pursue hospice care. He has extreme poor performance status, weakness, and deconditioning. He is eating well. He has bilateral pleural effusions, elevated CEA level. He presented with acute hypoxemic respiratory failure and this is better. He has severe protein calorie malnutrition but he is eating better. cc: Kwan Chow MD
[2019-02-26] MEDS ORDERED: OXY IR PO ONE (00:07)
[2019-02-26] MEDS: SOLU-MEDROL IV SCH ×2 (00:16→08:19)
[2019-02-26] MEDS: DUONEB (A & A) INH SCH ×3 (05:20→11:33)
[2019-02-26] MEDS: PRILOSEC PO SCH (06:59)
--- NOTE | 2019-02-26 07:03 | Diag Imaging Result Doc PS360 ---
EXAM: CHEST-1 VIEW 02/26/2019 HISTORY: SOB TECHNIQUE: AP portable at 0556 COMMENT: There are bilateral pleural effusions. There is hazy opacity in both lower lung st[place] which may in part be due to pulmonary edema. This was also present on 02/23/2019. The possibility of pneumonia cannot be entirely excluded. IMPRESSION: Pulmonary edema and pleural effusions. Electronically signed by Trey Matamoros 02/26/2019 7:01 AM
[2019-02-26 07:16] LABS: HEMATOCRIT 40.8 % (42.0-52.0); MCH 34.2 PG (27-31); MCHC 34.3 g/dL (33-37); MCV 99.8 FL (81-99); MPV 10.7 FL (7.4-10.4); RBC 4.09 XMIL (4.7-6.1); RDW 13.3 % (11.5-14.5); WBC 13.53 X1000 (4.8-10.8)
[2019-02-26 07:44] LABS: ALBUMIN 3.2 g/dL (3.5-5.0); CALCIUM 8.1 mg/dL (8.8-10.2); CREATININE 3.1 mg/dL (0.7-1.2); PHOSPHORUS 6.5 mg/dL (2.7-4.5)
[2019-02-26] MEDS: LASIX IV SCH (08:19)
--- NOTE | 2019-02-26 08:36 | DISCHARGE SUMMARY ---
ADMISSION DATE: 02/17/2019 DISCHARGE DATE: 02/26/2019 PRIMARY CARE PHYSICIAN: None. HISTORY: A 68-year-old gentleman with history of COPD and liver disease, who presented to the emergency room with family members complaining of about a 4-week history of shortness of breath. He states that over the last 2 and half weeks his dyspnea on exertion, and found himself having frequent periods of having to rest during activities of daily living. Over the last week, progressed to shortness of breath at rest and during the night the night before admission became very concerned as his significant other. His girlfriend was concerned, brought him to the emergency room, and found to have right lower lobe pneumonia. Blood cultures were obtained in the emergency room and he was started on Rocephin and azithromycin. PAST MEDICAL HISTORY: 1. COPD. 2. Liver disease. 3. Posttraumatic stress disorder from his time in [place]. ADMISSION DIAGNOSES: 1. Bronchial pneumonia. Started on Rocephin and azithromycin, awaited on cultures. Place him on DuoNeb's and steroids. Incentive spirometry. 2. Hyponatremia. I gave him some IV hydration, and this seemed to improve. 3. Acute kidney injury. Once again, IV hydration felt most of this was prerenal. 4. Elevated liver function test. They did perform some tests to evaluate this. 5. Alcohol use. He usually drinks 6 to 8 beers a day with his last drinks the night before admission. Blood alcohol did not detect any alcohol, but they did prepare for possible alcohol withdrawal, and gave him IV Ativan. 6. Tobacco use and abuse. 7. Questionable sepsis when he came in. His chest CT without contrast, bilateral large pleural effusions, compressive atelectasis, left effusion slightly loculated. 8. Suspicious pro base mass in the right apex non calcified nodule in the left upper lobe. Renal ultrasound done on 02/19 showed small right renal cyst, possible medical renal disease. No hydronephrosis. 9. Pulmonary: Dr. Morrison mud temperer was asked to see about his right upper lobe mass, solitary pulmonary nodule in the left upper lobe. Bilateral pleural effusions. Noted to have cardiomegaly with severe reduction in ejection fraction. He is very cachectic, and not eating protein calorie malnutrition. He had hypoxemic respiratory failure. He had acute worsening of renal function compared with previous statin in 2014. I have encouraged the patient to stop smoking and drinking, and a Thompson catheter was placed. He tried to diurese him. Note that we checked a CEA level, and it was high. I anticipate he may need an outpatient PET scan. He was not clinically able to undergo a CT needle biopsy. 10. Abdominal pelvic CT, nonobstructing right renal stone, bilateral pleural effusions. Ascites in the body wall and some edema. Abdominal ultrasound on 02/22. Small volume ascites. Large right pleural effusion. Distended IVC which could indicate fluid overload. Heterogeneous hepatic echotexture, nonspecific, but could be seen with cirrhosis. Mild dilatation of left renal collection system of unknown acuity. 11. Chest x-ray repeated on 02/22. No change. Stable cardiomegaly. Stable pulmonary vascular congestion. Stable hazy interstitial infiltrates bilaterally consistent with pulmonary edema. Stable small to small bilateral pleural effusions. Nephrology was asked to evaluate. He had acute kidney injury. Creatinine increased over the weekend. He had undergone aggressive diuretic therapy, and so that was held. In regards to his right upper lobe mass, solitary pulmonary nodule and evaluated CEA level which was elevated. The patient was not in adequate condition undergo needle biopsy. We asked GI to see and the patient wanted to go home, and wanted to pursue hospice. We can continue to follow the liver enzymes and liver function with INR and transaminases. He underwent hepatocellular carcinoma screening. Ultrasound was negative for hepatoma. The patient did not have any evidence of hepatic encephalopathy. We wanted to continue his thiamine, folate, and multivitamin for history of alcohol. He received some vitamin K. He did have an elevated CEA, but want to hold off on endoscopic intervention given his poor prognosis and poor functional status. In regards to his congestive heart failure, ejection fraction was 10 to 15 percent. He appeared fairly well compensated. In regards to his lung mass, he was not able to undergo a biopsy. DISCHARGE DIAGNOSES: 1. Right upper lobe mass, unable to biopsy at this point because poor functional status. 2. Left upper lobe nodule. 3. Elevated CEA. 4. Pleural effusion, mild bilateral. 5. Cardiomegaly with severe reduction in ejection fraction, severe systolic congestive heart failure. 6. Acute hypoxic respiratory failure. 7. Protein calorie malnutrition. 8. Hepatitis C antibody was positive, and so recommended follow-up hepatitis C PCR. 9. Alcoholism causing alcoholic cirrhosis complicated by mild anemia, thrombocytopenia, coagulopathy, and elevated liver enzymes. 10. We will discharge him home. He would like to go home with hospice, and see if we can get that ready today. DISCHARGE ORDERS: 1. Norvasc 5 mg b.i.d. 2. Coreg 12.5 mg twice a day. 3. Bicitra 30 mL p.o. b.i.d. 4. Folic Acid 1 mg a day. 5. Centrum Silver 1 a day. 6. NicoDerm patch 21 mg daily. 7. Vitamin B1 or thiamine 100 mg daily. cc: Kwan Chow MD
[2019-02-26] MEDS: VITAMIN B-1 PO SCH (09:09)
[2019-02-26] MEDS: NORVASC PO SCH (09:09)
[2019-02-26] MEDS: NICODERM PATCH TD SCH (09:09)
[2019-02-26] MEDS: BICITRA PO SCH (09:09)
[2019-02-26] MEDS: FOLIC ACID PO SCH (09:09)
[2019-02-26] MEDS: CENTRUM SILVER PO SCH (09:09)
[2019-02-26] MEDS: ZITHROMAX PO SCH (09:09)
[2019-02-26] MEDS: COREG PO SCH (09:09)
[2019-02-26 11:28] VITALS: BP 128/76
[2019-02-26] MEDS: ROCEPHIN 1 GM in NS 50 ML IV SCH (11:59)
== END 2019-02-26 12:43 | disposition hospice, home (50) | DRG 193 ==
LOC: ED 09:46 → SUATTDRO 13:28 → 3N 13:28 → 2N 02-20 14:25 → 4N 02-22 15:44
PROVIDERS: ATTEND Emergency Medicine

== ENCOUNTER 2019-03-10 23:22 | Inpatient (IN) ==
[2019-03-11] MEDS ORDERED: DUONEB (A & A) INH ONE (00:22)
[2019-03-11] MEDS ORDERED: SOLU-MEDROL IV ONE (00:22)
[2019-03-11] MEDS ORDERED: NS 1,000 ML IV ONE (00:22)
[2019-03-11 01:18] LABS: BASO# 0.05 X1000 (0.0-0.2); BASO% 1.1 % (0.0-0.8); EOS# 0.06 X1000 (0.0-0.7); EOS% 1.4 % (0.0-10.0); HEMATOCRIT 43.7 % (42.0-52.0); HEMOGLOBIN 14.6 g/dL (14.0-18.0); LYMPH# 0.35 X1000 (1.2-3.4); MCH 33.4 PG (27-31); MCHC 33.4 g/dL (33-37); MONO# 0.38 X1000 (0.11-0.59); MONO% 8.7 % (1.7-9.3); MPV 10.3 FL (7.4-10.4); NEUT# 3.52 X1000 (1.4-6.5); NEUT% 80.8 % (42.2-75.2); PLT 107 X1000 (130-400); RBC 4.37 XMIL (4.7-6.1); RDW 13.4 % (11.5-14.5); WBC 4.36 X1000 (4.8-10.8)
[2019-03-11] MEDS ORDERED: LEVAQUIN 500 MG/D5W 500 MG/100 ML IVPB IV ONE (01:18)
[2019-03-11] MEDS ORDERED: CATAPRES PO ONE (01:19)
[2019-03-11] MEDS ORDERED: LASIX ONE (04:48)
[2019-03-11 04:52] LABS: ALB/GLOB RATIO 1.3; ALBUMIN 3.5 g/dL (3.5-5.0); CALCIUM 8.5 mg/dL (8.8-10.2); CREATININE 1.8 mg/dL (0.7-1.2); POTASSIUM 3.7 mmol/L (3.5-5.1); TOTAL BILIRUBIN 0.99 mg/dL (0.20-1.00); TOTAL PROTEIN 6.2 g/dL (6.3-8.3)
[2019-03-11] MEDS ORDERED: NS 50 ML ONE (05:15)
[2019-03-11] MEDS ORDERED: ROCEPHIN ONE (05:15)
--- NOTE | 2019-03-11 05:36 | EKG Report ---
Test Performed on : 03/11/2019 01:20:41 AM Test Reason : sob Blood Pressure : / mmHG Vent. Rate : 118 BPM Atrial Rate : 118 BPM P-R Int : 154 ms QRS Dur : 078 ms QT Int : 348 ms P-R-T Axes : 069 -39 096 degrees QTc Int : 487 ms Sinus tachycardia. Possible Left atrial enlargement Left axis deviation Nonspecific T wave abnormality Abnormal ECG When compared with ECG of 20-FEB-2019 17:29, Nonspecific T wave abnormality no longer evident in Inferior leads Unconfirmed Result
--- NOTE | 2019-03-11 05:39 | PROVIDER DOCUMENTATION ---
This chart was entered by Carito Hubbard Scribe, acting as scribe for Nagi Garcia MD. HPI-Respiratory General - General Chief Complaint: Shortness of Breath Stated Complaint: SOB,Cancer Time Seen by Provider: 03/11/19 00:18 Source: patient Allergies/Adverse Reactions: Patient Allergies Allergy/AdvReac Type Severity Reaction Status Date / Time Penicillins Allergy HIVES Verified 03/01/19 11:32 Home Medications: Home Medication List Medication Instructions Recorded Confirmed Last Taken Type NK [No Home Medications] 03/11/19 03/11/19 Unknown History - History of Present Illness-Resp Nature of Presenting Problem: pt is a 68 yr old male presenting with 1 day complaint of increased shortness of breath, pt reports hx of copd, recent admission. pt reports he does not using breathing tx at home but was given 1 by EMS, pt reports improvement with tx. pt denies fever/chills. no other complaints Severity in ED: reports: moderate Onset/Duration: reports: gradual Timing: reports: improving Exposure: reports: unknown cause Cough Quality/Degree: reports: moderate Episode Frequency: occasional episodes Current Respiratory Medication Therapy: Initiated none Modifying Factors: improves with: albuterol nebulizer (douneb tx by EMS improved symptoms) Associated Symptoms: reports: cough, shortness of breath, wheezing. denies: fever/chills Similar Symptoms Previously?: Yes Recently seen or treated by another doctor?: Yes Review of Systems - Adult - REVIEW OF SYSTEMS - ADULT Constitutional: denies: chills, fever Eyes: reports: no symptoms reported Ears, Nose, Mouth & Throat: denies: ear pain, sinus problem, throat pain Cardiovascular: denies: chest pain, palpitations, syncope Respiratory: reports: cough, dyspnea on exertion, shortness of breath, wheezing Gastrointestinal: denies: abdominal pain, diarrhea, nausea, vomiting Genitourinary: reports: no symptoms reported Musculoskeletal: reports: no symptoms reported Integumentary: reports: no symptoms reported Neurological: denies: dizziness/vertigo, headache/migraines Psychiatric: reports: no symptoms reported Endocrine: reports: no symptoms reported Hematologic/Lymphatic: reports: no symptoms reported Allergic/Immunologic: reports: no symptoms reported All Other Systems: Reviewed and Negative Past History - Adult - PAST MEDICAL HISTORY-ADULT Review of Records: reports: Old Records Reviewed, Nursing Assessment Review, Medications Reviewed, Social history reviewed & non-contributory. Major Childhood Illnesses: reports: denies history Cardiovascular: reports: HTN Respiratory: reports: COPD Gastrointestinal: reports: denies history Obstetrical/Gynecological: reports: denies history Genitourinary: reports: denies history Musculoskeletal: reports: denies history Neurological: reports: CVA Psychiatric: reports: ptsd Endocrine/Immune: reports: denies history Other Conditions: reports: denies history - PRIOR SURGERIES/PROCEDURES Surgical/Procedure History: reports: reviewed, not pertinent - IMMUNIZATION STATUS Childhood Immunizations: See Nurse Assessment Flu Vaccine: See Nurse Assessment - FAMILY HISTORY Family History: reviewed, not pertinent - SOCIAL HISTORY Smoking: cigarettes Provider spent 3-5 mins advising pt. on dangers of tobacco.: Discussed manners to quit use, and f/u contacts for add'l counseling. Substance Use: none presently/history of abuse Living Situation: family Physical Exam-General - PHYSICAL EXAM-ADULT Initial Vital Signs Reviewed: Yes - CONSTITUTIONAL General Appearance: alert, no apparent distress, thin - EYES Eyes: PERRL/EOMI - HEAD, EARS, NOSE, MOUTH & THROAT HENMT: normocephalic/atraumatic, moist mucous membranes, normal ENT inspection - NECK Neck: non-tender, full range of motion, supple, normal inspection - RESPIRATORY Respiratory: chest non-tender, lungs clear, normal breath sounds, no respiratory distress, no accessory muscle use - CARDIOVASCULAR Cardiovascular: normal peripheral pulses, no edema, tachycardia - GASTROINTESTINAL (ABDOMEN) Abdominal Exam: normal bowel sounds, non tender, soft - LYMPHATIC Lymphatic: no adenopathy - MUSCULOSKELETAL Back Exam: normal inspection, no CVA tenderness, no vertebral tenderness Extremity: normal range of motion, non-tender, normal gait, normal inspection - SKIN Integumentary: normal color, normal turgor, warm/dry - NEUROLOGIC Neurologic: grossly normal - PSYCHIATRIC Psych/Mental Status: normal mood/affect Progress - PLAN OF CARE/RESULTS Progress/Plan/Lab Results: Vital Signs - 8 hr 03/11/19 00:01 03/11/19 00:30 Temperature 97.3 F L Pulse Rate 126 H 119 H Respiratory Rate 18 26 H Blood Pressure 179/120 O2 Sat by Pulse Oximetry 97 99 Laboratory Results - last 24 hr 03/11/19 03/11/19 03/11/19 01:00 01:00 01:00 WBC 4.36 L RBC 4.37 L Hgb 14.6 Hct 43.7 MCV 100.0 H MCH 33.4 H MCHC 33.4 RDW Std Deviation 13.4 Plt Count 107 L MPV 10.3 Immature Gran % (Auto) 0.0 Neut % (Auto) 80.8 H Lymph % (Auto) 8.0 L Foster % (Auto) 8.7 Eos % (Auto) 1.4 Baso % (Auto) 1.1 H Immature Gran # (Auto) 0.00 Neut # (Auto) 3.52 Lymph # (Auto) 0.35 L Foster # (Auto) 0.38 Eos # (Auto) 0.06 Baso # (Auto) 0.05 Sodium 142 Potassium 3.7 Chloride 102 Carbon Dioxide 27 Anion Gap 13 BUN 20 Creatinine 1.8 H Estimated GFR/1.73 m2 38 BUN/Creatinine Ratio 11 Glucose 145 H Calculated Osmolality 288 Calcium 8.5 L Total Bilirubin 0.99 AST 177 H ALT 183 H Alkaline Phosphatase 329 H Troponin T Ifi-[id number]-Wdbmivaskvi Pept > 86012 H Total Protein 6.2 L Albumin 3.5 Globulin 2.7 Albumin/Globulin Ratio 1.3 03/11/19 01:00 WBC RBC Hgb Hct MCV MCH MCHC RDW Std Deviation Plt Count MPV Immature Gran % (Auto) Neut % (Auto) Lymph % (Auto) Foster % (Auto) Eos % (Auto) Baso % (Auto) Immature Gran # (Auto) Neut # (Auto) Lymph # (Auto) Foster # (Auto) Eos # (Auto) Baso # (Auto) Sodium Potassium Chloride Carbon Dioxide Anion Gap BUN Creatinine Estimated GFR/1.73 m2 BUN/Creatinine Ratio Glucose Calculated Osmolality Calcium Total Bilirubin AST ALT Alkaline Phosphatase Troponin T 0.098 H Uxt-Y-Dgexockhxkn Pept Total Protein Albumin Globulin Albumin/Globulin Ratio Orders Category Date Time Status Nursing- Obtain EKG ONCE Care 03/11/19 00:21 Active CHEST-1 VIEW [RAD] Stat Exams 03/11/19 00:21 Taken BLOOD CULTURE [BLDCUL] Stat Lab 03/11/19 03:00 Results CBC WITH ELECTRONIC DIFF [HEME] Stat Lab 03/11/19 01:00 Completed COMPREHENSIVE METABOLIC PANEL [CHEM] Stat Lab 03/11/19 01:00 Completed PRO B-NATRIURETIC PEPTIDE Stat Lab 03/11/19 01:00 Completed TROPONIN T Stat Lab 03/11/19 01:00 Completed 0.9% Sodium Chloride Inj [Ns] 1,000 ml Med 03/11/19 00:22 Discontinued IV 999 mls/hr 0.9% Sodium Chloride Inj [Ns] 50 ml Med 03/11/19 05:15 Discontinued .ROUTE As directed Albuterol 2.5MG/Ipratrop 0.5MG [Duoneb (A & A)] Med 03/11/19 00:22 Discontinued 3 ml INH NOW ONE CefTRIAXONE [Rocephin] Med 03/11/19 05:15 Discontinued 1 gm .ROUTE .STK-MED ONE Clonidine [Catapres] Med 03/11/19 01:19 Discontinued 0.1 mg PO NOW ONE Furosemide [Lasix] Med 03/11/19 04:48 Discontinued 40 mg .ROUTE .STK-MED ONE Levofloxacin 500 mg/D5w [Levaquin 500 mg/D5w] Med 03/11/19 01:18 Discontinued 500 mg in 100 ml IV NOW Methylprednisolone Sod Succ [Solu-Medrol] Med 03/11/19 00:22 Discontinued 125 mg IV NOW ONE Aerosol Treatments Routine Oth 03/11/19 00:22 Completed Aerosol Treatments Stat Oth 03/11/19 00:22 Completed EKG [EKG] Stat Ther 03/11/19 00:21 Draft see paper chart. Result Diagrams: 03/11/19 01:00 03/11/19 01:00 - EKG 1 Time of EKG reading by physician:: 01:20 EKG Read and Signed by:: Nagi Garcia EKG Interpretation (*Must complete 3 of following elements*): Abnormal (poss LAE, non specific t wave abnormality) Rate: 118 Rhythm: SINUS TACHYCARDIA [place]: normal QRS: normal [place] Interval: normal - CONSULTS/PCP/HOSPITALIST Notification #1 *Consult/PCP/Hospitalist*: Dr Harris Time Discussed: 05:10 Consult Disposition: Will see in ED, Admit Departure - Departure Date of Disposition Decision: 03/11/19 Time of Disposition Decision: 05:36 DIAGNOSIS: COPD exacerbation, CHF (congestive heart failure), Pleural effusion, Cardiac enzymes elevated, Pericardial effusion Disposition: ADMITTED INPATIENT 09 Certified Medical Emergency: Emergent Condition: Fair Referrals and Follow-Ups: None,PCP [Primary Care Provider] - - Critical Care Note This patient required my direct & personal management of CC.: No Attestation - Physician/ ERIC Attestation Patient care was provided by Advanced Practice Provider:: No The physician spent face to face time with patient:: Yes Advanced Practice Provider documentation review:: Supervising physician onsite and consulted in the evaluation and care of this patient. The physician did have a face to face encounter with the patient. This chart was documented by the indicated scribe, (Carito Hubbard, Arlette) and accurately reflects the services I performed and decisions made by me, Nagi Garcia MD, as attested by the provider's signature.
--- NOTE | 2019-03-11 06:24 | Diag Imaging Result Doc PS360 ---
CHEST-1 VIEW - 03/11/2019 INDICATION: sob COMPARISON: 02/26/2019 FINDINGS: There are small pleural effusions that have dramatically improved since prior. There is some central interstitial infiltrate bilaterally, indeterminate but most suggestive of pulmonary edema. Heart size is grossly normal. IMPRESSION: Small bilateral pleural effusions. Central infiltrates compatible with pulmonary edema. Electronically signed by Jose Francisco Licea 03/11/2019 6:22 AM
--- NOTE | 2019-03-11 08:54 | Diag Imaging Result Doc PS360 ---
EXAM: CT THORAX W/O CONTRAST HISTORY: sob TECHNIQUE: CT chest without contrast COMPARISON: 02/18/2019 FINDINGS: There is a moderate to large right-sided pleural effusion measuring 5.7 cm posteriorly and inferiorly in the midline. This is similar to the prior exam. There is a moderate sized left pleural effusion measuring 4.5 cm. This is also similar to the prior study. The heart is not enlarged. Development of a small to moderate-sized pericardial effusion. This measures 10 mm anteriorly. Prominent atherosclerosis. No aortic aneurysm. There are calcified mediastinal nodes. There is mild basilar atelectasis. Moderate prominent emphysema. Apical density/scarring similar to the prior study. Small to moderate abdominal ascites which was present on the prior exam. IMPRESSION: Interval development of a pericardial effusion, otherwise stable CT of the chest. This exam was performed using automated exposure control, adjustment of mA or kV according to patient size, and/or use of iterative reconstruction technique. Electronically signed by Nima Desir 03/11/2019 8:51 AM
[2019-03-11] MEDS ORDERED: LOPRESSOR IV ONE ×2 (09:33→09:57)
[2019-03-11] MEDS ORDERED: APRESOLINE IV PRN (09:54)
[2019-03-11] MEDS ORDERED: ROCEPHIN 1 GM in NS 50 ML IV SCH (09:54)
[2019-03-11] MEDS ORDERED: NORVASC PO SCH (11:00)
--- NOTE | 2019-03-11 11:11 | HISTORY AND PHYSICAL ---
PRIMARY CARE PHYSICIAN: Listed as none. CHIEF COMPLAINT: Shortness of breath x1 day. HISTORY OF PRESENTING ILLNESS: This is a 68-year-old male who presents to [facility] with complaints of a one day history of increased shortness of breath. He states he had not been using his breathing treatments at home. He was recently discharged from the hospital on 02/26/2019 after having a bronchial pneumonia, elevated LFTs, and some questionable sepsis. He also during that admission was found to have a right upper lobe mass that is to be followed outpatient by Dr. Morrison because he may need an outpatient PET scan, and a CT needle biopsy. His workup in the emergency room showed him saturating 97% on 2 L via nasal cannula. He still has elevation in his LFTs with an AST of 177, ALT 183, alkaline phosphatase 329, BUN of 20 with a creatinine of 1.8 which is an improvement from when he was discharged on 02/26, it was 3.1. His troponin's however were positive at 0.098 and 0.091. His chest x-ray showed small bilateral pleural effusions with central infiltrates compatible with pulmonary edema. We did a chest CT that showed an interval development of a pericardial effusion. Otherwise, stable CT of the chest so he will be admitted for further evaluation and treatment. PAST MEDICAL HISTORY: COPD, liver disease, PTSD from [place], hypertension, CVA, and severe systolic congestive heart failure with last echocardiogram on 02/27/2019 showing an ejection fraction of 10 to 15 percent. PAST SURGICAL HISTORY: Right thigh surgery. FAMILY HISTORY: Reviewed and noncontributory. SOCIAL HISTORY: Currently lives with family. He was smoking 2 packs of cigarettes a day prior to his previous admission, but now states he is down to a half to 1 pack per day. He was drinking 6+ beers a day, but states he has not drank any in the last 3 to 4 weeks, and continues to use marijuana regularly. ALLERGIES: Penicillin. HOME MEDICATIONS: He does not list any medications routinely. LABORATORY DATA: White blood cell count of 4.36, hemoglobin 14.6, hematocrit 43.7, and platelets 107,000. Sodium 142, potassium 3.7, chloride 102, CO2 27, BUN of 20, creatinine 1.8, glucose 145, AST was 177, ALT 183, and alkaline phosphatase 329. Troponin was 0.098 and 0.091, but it looks like those are both from one at the same time frame, proBNP of greater than 35,000. Chest x-ray showed small bilateral pleural effusions and central infiltrates compatible with pulmonary edema. Chest CT showed interval development of a pericardial effusion. Otherwise stable CT of the chest. EKG showed sinus tachycardia at 118. REVIEW OF SYSTEMS: He denied any fever, chills, blurred vision, or dizziness. He denies any chest pain. Denied a cough. He had shortness of breath. Denied any abdominal pain, constipation, diarrhea, burning or hurting with urination. PHYSICAL EXAMINATION: On arrival, he had a temperature of 97.3 degrees, pulse of 126, respirations 18, blood pressure 179/120, and saturating 97% on room air. Blood pressure now was down to 159/106. GENERAL: This is a 68-year-old male who is lying in the bed and answers questions appropriately. HEENT: Normocephalic, atraumatic. Normal ENT inspection. Oropharynx and nares are clear. EYES: Pupils are equal, round, and reactive to light and accommodation. Extraocular movements are intact. NECK: Normal inspection. Normal range of motion. LUNGS: Decreased breath sounds bilaterally. Equal lung expansion. Chest wall movement noted. HEART: Regular rate and rhythm. No murmurs, rubs, or gallops. ABDOMEN: Soft, nontender, and nondistended. Bowel sounds are present x4 quadrants. MUSCULOSKELETAL: He has 5/5 strength x4 extremities. NEUROLOGICAL: The cranial nerves 2-12 appear grossly intact. ASSESSMENT: 1. Acute chronic obstructive pulmonary disease exacerbation. 2. Acute severe systolic congestive heart failure exacerbation. 3. Positive troponin. 4. Hypertension. 5. Elevated liver function tests. 6. Tobacco abuse. 7. History of ETOH abuse. 8. Marijuana abuse. PLAN: He will be admitted to PVC Unit, placed on telemetry, and O2 per protocol. We will consult Cardiology. We will do incentive spirometry and healthy heart diet. Apply SCD's for DVT prophylaxis. We are going to recheck a CPK and troponin stat. Place him on Rocephin 1 gram IV q.24, azithromycin 500 IV q.24, give him hydralazine 10 mg IV q.4 hours p.r.n. for a systolic blood pressure greater than 190, diastolic greater than 110. We need to verify his home medications because I know he should be on some, but he does not list any at this time so we need to verify that and place him on DuoNeb's q.4 hours. Recheck CBC and CMP in the morning. Further orders after seen by attending and network relations consultant. Dictated by EELANOR Mitchell for Jamaal Calloway MD cc: ELEANOR Mitchell MD Pt seen/examined; cachectic on exam here with dyspnea; now with bilateral effusions and positive troponins; we will treat for pneumonia, volume overload, positive troponins may be related to chf and renal insufficiency, cardiology and pulmonary consulted; will try to pursue thorancentesis as he has a lung mass; pulmonary has also been consulted. agree with above as described. DEEDEE
--- NOTE | 2019-03-11 11:38 | CARDIOLOGY CONSULTATION ---
DATE: 03/11/2019 HISTORY OF PRESENT ILLNESS: Mr. Doyle is a 68-year-old, gentleman, who was admitted recently and discharged on 02/26/2019 with multiple medical issues as listed below. He comes with complaints of increasing shortness of breath and worsening pedal edema, and he was orthopneic as well. Since discharge, he says he has been taking his medications regularly. He denies chest pain. There is no palpitations. There is no syncope. He was evaluated for hospice care at the time of his discharge on 02/26/2019. REVIEW OF SYSTEMS: General: A 14-point review of system was done. GI System: There is no history of nausea, vomiting. There is no history of hematemesis or melena. Central nervous system: No focal weakness to suggest a CVA, TIA. System: There is no dysuria or hematuria. PAST MEDICAL HISTORY: 1. Congestive heart failure with severe LV dysfunction. Last echocardiogram 02/17/2019 revealed an ejection fraction of 10 to 15 percent. There was no thrombus noted. There was mild mitral regurgitation. Severe left atrial enlargement and right ventricular enlargement. 2. Bronchopneumonia during his recent hospitalization. 3. Acute kidney injury. 4. Hyponatremia. 5. He was evaluated by Dr. Morrison for right upper lobe mass. 6. Bilateral pleural effusion. 7. His abdominal/pelvic CT revealed nonobstructing right renal stones with significant pleural effusions at that time. Ascites, as well as large right pleural effusion. 8. COPD. 9. Chronic alcohol abuse. He says he quit drinking since his last discharge from the hospital recently. 10. Smokes a pack of cigarettes a day. MEDICATIONS AT DISCHARGE: Norvasc 5 mg b.i.d., Coreg 12.5 b.i.d., folic acid, Centrum Silver, multivitamins. PHYSICAL EXAMINATION: Vital Signs: Blood pressure was 150/106. Neck: Jugular venous pressure was elevated. Heart: First and second heart sounds were heard. Lungs: There was dullness at both bases with inspiratory wheeze and crackles. Abdomen: Soft, obese. Central nervous system: Alert. He was moving all 4 extremities. Extremities: Examination of extremities revealed severe pitting pedal edema up to his thighs. X-RAYS: Electrocardiogram revealed normal sinus rhythm, nonspecific ST-T changes. CT scan of his chest was done which revealed moderate to large right pleural effusion and left moderate-size effusion with small pericardial effusion. LABORATORY EXAMINATION: Revealed a sodium 142, potassium 3.7, BUN 20, creatinine 1.8. ProBNP elevated greater than 35,000. Troponin abnormal at 0.098 and 0.091. Abnormal liver function tests with AST 177, ALT 183, alkaline phosphatase 329. WBC 4.36, hemoglobin 14.6, hematocrit 43, platelet count of 107. ASSESSMENT AND PLAN: 1. Mr. Alan Doyle is a 68-year-old, gentleman, who has history of chronic alcohol abuse, tobacco abuse, has severe left ventricular dysfunction, ejection fraction of 10 to 15 percent, history of heart failure, was recently admitted and discharged home. He had bronchopneumonia. Pulmonary nodule was noted in addition to features of heart failure. 2. He had renal insufficiency when he was admitted. His creatinine has improved to 1.8 today. Currently, he has congestive heart failure. We will continue with Coreg 12.5 mg twice daily, his home medication. I will add lisinopril 20 mg to his medical regimen. In addition, start him on Lasix 40 mg intravenous twice daily in addition to a dobutamine drip. We will monitor his basic metabolic panel daily and check a chest x-ray on Friday. 3. He was evaluated for hospice care at the time of his discharge. We will leave it to the hospitalist to decide on the plan of action pertaining to that as well. 4. He has history of chronic alcohol abuse that could be accounting for his severe left ventricular dysfunction. However, his liver function tests were also abnormal. I suspect that is secondary to his heart failure. 5. He has had a nodule in the past. It was evaluated by Dr. Morrison. I have not made any changes. He has been started on antibiotics. CT scan suggestive of heart failure. Thank you for the consult. We will follow hospital course. cc: Jay Sandoval MD
[2019-03-11] MEDS: ZITHROMAX 500 MG/NS 500 MG/250 ML IVPB IV SCH (12:21)
[2019-03-11] MEDS: LASIX IV SCH ×2 (12:34→21:36)
[2019-03-11] MEDS: PRINIVIL PO SCH (12:35)
[2019-03-11] MEDS: DOBUTAMINE 500/D5W 500 MG/250 ML IV.SOLN IV SCH (12:39)
[2019-03-11] MEDS: DUONEB (A & A) INH SCH ×4 (13:00→23:05)
[2019-03-11] MEDS ORDERED: LOPRESSOR PO SCH (14:00)
[2019-03-11] MEDS: COREG PO SCH ×2 (14:38→21:35)
--- NOTE | 2019-03-11 14:50 | HISTORY AND PHYSICAL ---
ADDENDUM: The patient is 68-year-old with COPD, severe CHF, which apparently is a new diagnosis, who came in for shortness of breath. He has a large right pleural effusion. He was orthopneic. When I saw the patient, he stated that he just wanted to go home. He did not understand why he was being admitted. His initial laboratory work showed an elevated troponin. He has some renal insufficiency as well. His creatinine actually is much improved from when he was here about 2 weeks ago interestingly enough. The troponin though was mildly elevated, and has not been previously. Also, elevated liver enzymes which may be related to multiple issues. PROBLEMS: 1. In any case, problem #1 elevated troponin. We will continue to monitor. Cardiology consult. 2. COPD exacerbation, acute. We will continue treatment and follow antibiotics, steroids, and breathing treatments. 3. Chronic renal failure stage 3. 4. Elevated liver enzymes is a chronic issue for him, which may be related to multiple other issues. I think there is an alcohol history there, and no clear evidence. 5. He has a right upper lobe mass which he has not been amenable to biopsy with a pleural effusion and a pericardial effusion. We will get an echocardiogram, and he probably will also need a thoracentesis so we will work on that. cc: Jamaal Calloway MD
--- NOTE | 2019-03-12 00:32 | ECHO REPORT ---
ORDER DATE: 03/11/2019 SUMMARY: 1. Technically difficult study. Study is a limited study to evaluate pericardial effusion. 2. Left ventricular dimensions appear to be normal. Estimated ejection fraction approximately 25% in the setting of global hypokinesis. 3. Small pericardial effusion anteriorly demonstrated. 4. Left pleural effusion. 5. Appearance of inferior vena cava suggests normal central venous pressure. CONCLUSIONS: 1. Technically difficult limited study. 2. Estimated left ejection fraction 25% in the setting of global hypokinesis. 3. Small pericardial effusion without echocardiographic evidence of hemodynamic impact. 4. Left pleural effusion. cc: MD Jamaal Malagon MD
[2019-03-12] MEDS: DUONEB (A & A) INH SCH ×6 (05:18→23:49)
[2019-03-12 06:15] LABS: BASO# 0.02 X1000 (0.0-0.2); BASO% 0.3 % (0.0-0.8); HEMATOCRIT 37.6 % (42.0-52.0); HEMOGLOBIN 12.4 g/dL (14.0-18.0); LYMPH# 0.42 X1000 (1.2-3.4); LYMPH% 6.6 % (20.5-51.1); MCH 32.9 PG (27-31); MCV 99.7 FL (81-99); MONO# 0.52 X1000 (0.11-0.59); MONO% 8.1 % (1.7-9.3); MPV 10.6 FL (7.4-10.4); NEUT# 5.43 X1000 (1.4-6.5); PLT 152 X1000 (130-400); RBC 3.77 XMIL (4.7-6.1); RDW 13.4 % (11.5-14.5); WBC 6.39 X1000 (4.8-10.8)
[2019-03-12 06:31] LABS: ALBUMIN 2.7 g/dL (3.5-5.0); CALCIUM 7.9 mg/dL (8.8-10.2); TOTAL BILIRUBIN 0.69 mg/dL (0.20-1.00); TOTAL PROTEIN 5.3 g/dL (6.3-8.3)
--- NOTE | 2019-03-12 07:03 | EKG Report ---
Test Performed on : 03/12/2019 06:12:27 AM Test Reason : dyspnea Blood Pressure : / mmHG Vent. Rate : 081 BPM Atrial Rate : 081 BPM P-R Int : 136 ms QRS Dur : 084 ms QT Int : 492 ms P-R-T Axes : 077 032 087 degrees QTc Int : 571 ms Normal sinus rhythm. Possible Left atrial enlargement T wave abnormality, consider anterior ischemia Nonspecific T wave abnormality (inferior-lateral flattening) Prolonged QT Abnormal ECG When compared with ECG of 11-MAR-2019 01:20, (Unconfirmed) T wave inversion more evident in Anterior leads 9suspect anterior non-BRENT AR) Confirmed by Milan GARZA, Dallas Kirkland ([id number]) on 03/12/2019 1:56:05 PM
[2019-03-12] MEDS: COREG PO SCH ×2 (08:20→20:14)
[2019-03-12] MEDS: PRINIVIL PO SCH (08:20)
[2019-03-12] MEDS: MAXIPIME 1 GM in NS 50 ML IV SCH ×2 (08:20→20:14)
[2019-03-12] MEDS: LASIX IV SCH ×2 (08:20→20:14)
--- NOTE | 2019-03-12 09:10 | PROVIDER PROGRESS NOTE ---
Progress Note Additional Pulmonary Note: The pleural effusion is due to CHF and maximizing cardiac treatment is the best route.
[2019-03-12] MEDS: ZITHROMAX 500 MG/NS 500 MG/250 ML IVPB IV SCH (10:04)
--- NOTE | 2019-03-12 12:15 | PROGRESS NOTE ---
DATE: 03/12/2019 SUBJECTIVE: This morning, Mr. Doyle refers to be doing a lot better. He thinks his breathing is much, much better than before. He is currently about a 1510- balance. OBJECTIVE: Vital signs: Blood pressure is 129/79, pulse is 91, respirations 20, temperature 97.4 degrees. Patient is saturating 100% on 2 L. General: Mr. Doyle is a 89-year-old gentleman. He is in bed, no distress. HEENT: Mucosa is pink and moist. Anicteric. Acyanotic. Neck: Supple. No JVD. Chest: Air entry is bilaterally reduced. Some crackles posteriorly. Cardiovascular: Regular rate and rhythm. Abdomen: Soft, minimally distended with fluid thrill. Extremities: About 2+ pedal edema. DIRECTOR OF QUALITY CONTROL: Patient is awake, alert, and oriented. LABORATORY DATA: WBC is 6.39, hemoglobin is 12.4, platelet count of 152,000. Chemistry is also reviewed. Creatinine is 2.0. AST and ALT are elevated. CT scan of the chest which was done from yesterday shows interval development of pericardial effusion. There is also a moderate to large right-sided pleural effusion. There is ascites. ASSESSMENT: 1. Anasarca, presumably due to underlying congestive heart failure. 2. Acute on chronic systolic heart failure with ejection fraction of 25% with global hyperkinesis. 3. Right upper lobe mass with elevated CEA and also pleural effusion. We are going to sample this fluid to give us some answers. 4. Elevated liver enzymes, presumably from congestive hepatopathy. The patient also has underlying alcohol use and abuse. 5. Acute kidney injury presumably cardiorenal in etiology. We will continue treating the underlying cardiac abnormality. 6. Elevated troponins on presentation, have normalized. Cardiology is on board. cc: Bill Hoff MD
[2019-03-12 12:37] LABS: PTT 28.7 Seconds (22.3-41.8)
[2019-03-12 12:49] LABS: INR 1.21; PROTIME 15.5 Seconds (11.0-16.0)
[2019-03-12 16:08] LABS: AMYLASE BODY FLUID 31 U/L; GLUCOSE BODY FLUID 130 mg/dL; LDH BODY FLUID 97 U/L; TOTAL PROT BODY FLUID 1.7 g/dL
--- NOTE | 2019-03-12 16:10 | OPERATIVE NOTE ---
PROCEDURE DATE: 03/12/2019 PROCEDURE DONE: A right-sided thoracentesis. INDICATION: Symptomatic pleural effusion for both diagnostic and therapeutic purposes. DATE AND TIME OF EXAM: 03/12/2019 at 3 p.m. PROCEDURE NOTE: Mr. Doyle has been admitted because of fluid overload. A CT scan of the chest seems to suggest anasarca, but there is also a right pleural mass which is associated with some bilateral pleural effusion. Indication was for both diagnostic and therapeutic purposes. COMPLICATIONS OF THE PROCEDURE: Complications (the risks) were all addressed with Mr. Doyle including possibility of bleeding, pneumothorax, infections, and he did agree to do the procedure. DESCRIPTION OF PROCEDURE IN DETAIL: Ultrasound was used to localize the deepest pocket on the right posterior lung field. This was marked and chlorhexidine was used as the topical antiseptic agent. Subsequently 1% lidocaine was used as the local anesthetic agent. A small niche was subsequently done and the thoracentesis ad taker was advanced under negative pressure over the line marked immediately below rib until clear pleural fluid was aspirated. When this was done, the catheter was advanced while the needle was retrieved. Subsequently, 50 mL of clear jessee color pleural fluid was initially obtained for analysis. Subsequently the catheter was hooked to a draining system and a total of 1050 mL of clear jessee color pleural fluid was subsequently obtained. Mr. Doyle did not show any complication immediately. A chest x-ray has been ordered at the time of the dictation. Mr. Doyle's vitals remained stable after the procedure. There was very, very minimal blood loss during the procedure. The procedure was done in the presence of the attending nurse and the 2 medical students. cc: Bill Hoff MD
[2019-03-12 16:49] LABS: BODY FLUID SOURCE PLEURAL FLUID; MONOS 44 %; PH BODY FLUID 7.5; POLYS 56 %; SPECIMEN PLEURAL FLUID; WBC BF 94 /cumm
--- NOTE | 2019-03-12 17:54 | Diag Imaging Result Doc PS360 ---
EXAM: CHEST-PORTABLE INDICATION: post thoracentesis TECHNIQUE: One view COMPARISON: 03/11/2019 FINDINGS: There is continued improvement of the pulmonary venous congestion and pulmonary edema, especially at the right lung base. There is no evidence of pneumothorax status post right thoracentesis. There is better aeration of the right lung base. The small left effusion with adjacent atelectasis and/or infiltrate is stable to marginally improved. No new consolidation is identified. Cardiac silhouette is stable. IMPRESSION: No evidence of pneumothorax status post right thoracentesis and improvement of pulmonary edema. Electronically signed by Sonido Lr 03/12/2019 5:52 PM
--- NOTE | 2019-03-12 20:10 | PULMONOLOGY CONSULTATION ---
DATE: 03/12/2019 CHIEF COMPLAINT: Shortness of breath. HISTORY OF PRESENT ILLNESS: This is a 68-year-old male with a past medical history of COPD, liver disease, war with PTSD, hypertension, CVA, and CHF with ejection fraction of 10% to 15%. Recent chest CT obtained revealed a stable moderate to large right-sided pleural effusion measuring 5.7 cm, also a moderate-sized left pleural effusion. Heart is normal in size. Also has the development of a small pericardial effusion. Mild basilar atelectasis and moderate emphysema with apical scarring, also with mild to moderate ascites. PAST MEDICAL HISTORY: As mentioned in HPI. PAST SURGICAL HISTORY: Right eye surgery. FAMILY HISTORY: Noncontributory. SOCIAL HISTORY: Lives with family. He was smoking 2 packs of cigarettes a day prior to his previous admission but has cut that down to a half to 1 pack per day. Positive for drinking 6+ beers per day, but none within the last 3-4 weeks. Continues marijuana use regularly. ALLERGIES: Penicillin. HOME MEDICATIONS: Not obtainable. LABORATORY DATA: White blood cells 6.39, red blood cells 3.77, hemoglobin 12.4, hematocrit 37.6. PT 15.5, INR 1.21, PTT 28.7. Sodium 139, potassium 4.0, chloride 101, carbon dioxide 27, BUN 28, creatinine 2.0, glucose 109. AST 102, ALT 122, total protein 5.3, albumin 2.7. Pleural fluid obtained through thoracentesis: The fluid pH was 7.5. Fluid white blood cells were 94, fluid glucose 130, fluid total protein 1.7, fluid LDH 97, fluid amylase 31. REPORTS: Chest CT mentioned in the HPI. Recent chest x-ray - Impression: No evidence of pneumothorax status post right thoracentesis and improvement of pulmonary edema. REVIEW OF SYSTEMS: A 10-point review of systems was obtained and is pertinent as listed within the HPI, otherwise noncontributory. ASSESSMENT/PLAN: 1. Right upper lobe mass/elevated CEA with pleural fluid. Thoracentesis was obtained for sampling. 2. Chronic obstructive pulmonary disease exacerbation. Continue antibiotics, steroids and bronchodilators. 3. Hypertension. Continue to monitor and continue antihypertensive medications as prescribed. 4. Elevated troponin. Cardiology following. 5. Elevated liver enzymes. Ascites present. Aware. 6. Chronic renal failure stage 3. Aware. Thank you for the courtesy of this consult. Dictated by ELEANOR Lopez for Giovanni Jade MD cc: ELEANOR Lopez MD
[2019-03-12] MEDS ORDERED: OXY IR PO ONE (20:26)
[2019-03-13] MEDS: DUONEB (A & A) INH SCH ×6 (03:56→23:09)
[2019-03-13 06:01] LABS: HEMATOCRIT 39.6 % (42.0-52.0); HEMOGLOBIN 13.2 g/dL (14.0-18.0); MCHC 33.3 g/dL (33-37); MCV 102.1 FL (81-99); MPV 10.5 FL (7.4-10.4); RBC 3.88 XMIL (4.7-6.1); RDW 13.4 % (11.5-14.5); WBC 4.98 X1000 (4.8-10.8)
[2019-03-13 06:29] LABS: CALCIUM 7.7 mg/dL (8.8-10.2); CREATININE 2.1 mg/dL (0.7-1.2); MAGNESIUM 1.5 mg/dL (1.5-2.7); PHOSPHORUS 3.5 mg/dL (2.7-4.5); POTASSIUM 4.7 mmol/L (3.5-5.1)
--- NOTE | 2019-03-13 07:17 | Diag Imaging Result Doc PS360 ---
EXAM: CHEST-PORTABLE 03/13/2019 HISTORY: dyspnea, chf, copd TECHNIQUE: AP portable at 0546 COMMENT: There is a left pleural effusion. There is a left lower lobe opacity. Compared to 03/12/2019 the appearance of the chest has not changed significantly. There is definite improvement in pulmonary edema since 03/11/2019. IMPRESSION: Left pleural effusion. Left lower lobe atelectasis versus pneumonia. Electronically signed by Trey Matamoros 03/13/2019 7:15 AM
[2019-03-13] MEDS: DOBUTAMINE 500/D5W 500 MG/250 ML IV.SOLN IV SCH (07:42)
[2019-03-13] MEDS: PRINIVIL PO SCH (08:47)
[2019-03-13] MEDS: MAXIPIME 1 GM in NS 50 ML IV SCH ×2 (08:47→20:21)
[2019-03-13] MEDS: LASIX IV SCH ×2 (08:47→20:21)
[2019-03-13] MEDS: COREG PO SCH ×2 (08:47→20:21)
[2019-03-13] MEDS: ALDACTONE PO SCH (08:48)
[2019-03-13] MEDS: APRESOLINE PO SCH ×3 (08:48→18:14)
[2019-03-13] MEDS: ISORDIL PO SCH ×3 (08:48→18:14)
[2019-03-13] MEDS: ZITHROMAX 500 MG/NS 500 MG/250 ML IVPB IV SCH (09:11)
--- NOTE | 2019-03-13 10:16 | PROVIDER PROGRESS NOTE ---
Progress Note Pulmonary additional note: The right Apical changes likely represent scarring. However the patient was followed for it as out patient by Dr. Morrison and will leave that for his discretion.
--- NOTE | 2019-03-13 10:17 | PROGRESS NOTE ---
DATE: 03/13/2019 SUBJECTIVE: This morning, Mr. Doyle refers to be doing a whole lot better. He thinks his breathing is a lot better and his swelling is significantly improving. He underwent a right-sided thoracentesis at the bedside yesterday. Postoperatively, chest x-ray did not show any complication. This morning, a repeat chest x-ray is normal and patient feels a lot better. OBJECTIVE: Vital signs: Blood pressure is 156/108, pulse of 86, respiration is 18, temperature is 97.5 degrees. General: Mr. Doyle is a 68-year-old gentleman. He is in bed, no distress. HEENT: Mucosa is pink and moist. Anicteric. Acyanotic. Neck: Supple. Chest: Good air entry bilateral. There are a few crackles in the posterior lung strick[place]. Cardiovascular: Regular rate and rhythm. Abdomen: Soft. It is minimally distended but nontender. Bowel sounds present. Extremities: About 1+ pedal edema. Some minimal edema on the lateral aspect of the abdominal wall. Central nervous system: Patient is awake, alert, and oriented. There is no focal neurological deficit. INTAKE AND OUTPUT: Urine output was 3900. He is currently negative balance of 4210. He has consumed about 100% of his meals this morning. The patient current weight is 137, admitted with a weight of 140, so he has lost about 3 pounds during this hospital course. CURRENT MEDICATIONS: Include: 1. Azithromycin 500 q.24. 2. Coreg 12.5 q.12. 3. Cefepime 1 g q.12. 4. Dobutamine drip. 5. Lasix 40 IV b.i.d. 6. Alprazolam p.r.n. 7. Alprazolam started today, 25 mg 3 times per day with Isordil 10 mg 3 times per day. 8. Lisinopril 20 mg daily. 9. Aldactone 25 mg p.o. daily, also started today. IMAGING: A chest x-ray this morning shows a left pleural effusion, left lower lobe atelectasis versus pneumonia. Definite improvement in pulmonary edema since 12/09/2018. ASSESSMENT: 1. Anasarca secondary to underlying congestive heart failure. We will continue with diuretic therapy. 2. Acute on chronic systolic heart failure, ejection fraction of 25% with global hypokinesis. The patient is TAISHA, beta peter and diuretics. 3. Uncontrolled hypertension. We have added Isordil with hydralazine on top lisinopril. We have also added spironolactone. 4. Elevated liver enzymes, presumably from congestive hepatopathy. 5. Cirrhosis of the liver. Etiology seems to be multifactorial including previous alcohol and cardiac cirrhosis and also hepatitis C as well. 6. Acute versus acute on chronic kidney disease. Creatinine is fairly stable. The patient is making adequate urine. 7. Elevated troponin on presentation, presumed to be from demand mismatch. Cardiology is on board. Troponins have normalized. PLAN: In general, Mr. Doyle seems to be doing a lot better. He is still on the dobutamine drip. He is making adequate urine output. He is currently negative balance. We have made some additions to his blood pressure medication for adequate blood pressure control. Will be pending further recommendations from the other subspecialties involved with his care. cc: Bill Hoff MD
[2019-03-13] MEDS ORDERED: CALMOSEPTINE OINTMENT TOP PRN (11:23)
[2019-03-13] MEDS ORDERED: RESTORIL PO ONE (20:07)
[2019-03-14] MEDS: DUONEB (A & A) INH SCH ×6 (03:28→23:26)
[2019-03-14 06:30] LABS: CALCIUM 8.1 mg/dL (8.8-10.2); CREATININE 2.2 mg/dL (0.7-1.2); MAGNESIUM 1.5 mg/dL (1.5-2.7); POTASSIUM 3.2 mmol/L (3.5-5.1)
[2019-03-14] MEDS: LASIX IV SCH (09:02)
[2019-03-14] MEDS: PRINIVIL PO SCH (09:03)
[2019-03-14] MEDS: ALDACTONE PO SCH (09:03)
[2019-03-14] MEDS: COREG PO SCH ×2 (09:03→20:15)
[2019-03-14] MEDS: ISORDIL PO SCH ×3 (09:03→16:45)
[2019-03-14] MEDS: APRESOLINE PO SCH ×3 (09:03→16:45)
[2019-03-14] MEDS: MAXIPIME 1 GM in NS 50 ML IV SCH ×2 (09:03→20:15)
[2019-03-14] MEDS: ZITHROMAX 500 MG/NS 500 MG/250 ML IVPB IV SCH (09:05)
[2019-03-14] MEDS ORDERED: KLOR-CON PO ONE (09:14)
[2019-03-14] MEDS: LASIX PO SCH (10:21)
--- NOTE | 2019-03-14 10:47 | PROGRESS NOTE ---
DATE: 03/14/2019 SUBJECTIVE: This morning Mr. Doyle refers to be feeling a lot better. Denies any new complaints. Shortness of breath has significantly improved. OBJECTIVELY: Current vitals: Blood pressure is 166/86, pulse of 71, respiration is 18, temperature 97.5 degrees. Patient is saturating 99% on room air.General: Mr. Doyle is a 68- year-old gentleman. He is in bed. No distress. HEENT: Mucosa is pink and moist. Anicteric. Acyanotic. Neck: Supple. Chest: Air entry is bilaterally reduced, but I did not hear any crackles. No rhonchi. No wheezing. No accessory muscle use. Cardiovascular: Regular rate and rhythm. GI: Abdomen soft, nontender. Bowel sounds present. Extremities: Trace pedal edema. 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 I'S AND O'S: The patient's urine output was 2400. She is currently negative balance of 5540. The patient's weight is 137, currently. Weight was 148 on admission. CURRENT MEDICATIONS: Have all been reviewed. No changes. The patient on dobutamine was discontinued and we have also changed his IV Lasix to p.o. LABORATORY DATA: Sodium is 134, potassium is 3.2, chloride is 96, bicarb is 25. The patient's creatinine is 2.5. ASSESSMENT: 1. Anasarca secondary to congestive heart failure. The patient continues to be on diuretic therapy. He seems to be near euvolemic status. We have changed the IV diuretics to p.o. 2. Acute on chronic systolic heart failure with ejection fraction of 25% with global hypokinesis on echo. Patient is on TAISHA inhibitor, beta peter, and diuretics. 3. Uncontrolled hypertension. The patient's blood pressure seems to be getting better. There were some changes made to his medication regimen yesterday. We will continue. 4. Elevated enzyme, presumably from congestive hepatopathy. Will continue to follow. 5. Cirrhosis of the liver presumably with multiple etiologies including previous alcohol abuse, hepatitis C, and cardiac cirrhosis. Patient will need to follow up with gastroenterology. 6. Acute versus acute on chronic kidney disease. Creatinine is fairly stable. Patient continues to make adequate urine. 7. Elevated troponin on presentation secondary to demand mismatch. Cardiology is on board. 8. Right upper lobe right mass associated with elevated CEA. We are still pending the cytology on the pleural fluid and pulmonary medicine is on board. We will follow up with further recommendations with them as to the approach to this upper lobe mass. PLAN: So in general Mr. Doyle is doing a whole lot better. He feels stronger. His shortness of breath has significantly improved. We are going to repeat his chest x-ray tomorrow morning as well as his pro B and wait for further recommendations from Pulmonary Medicine and Cardiology. I think Mr. Doyle could potentially be discharged tomorrow if it is okay with the subspecialties on board. cc: Bill Hoff MD MTDD
[2019-03-15] MEDS: DUONEB (A & A) INH SCH ×3 (03:24→11:26)
[2019-03-15 07:09] LABS: ALB/GLOB RATIO 1.1; ALBUMIN 2.9 g/dL (3.5-5.0); CREATININE 2.2 mg/dL (0.7-1.2); MAGNESIUM 1.5 mg/dL (1.5-2.7); POTASSIUM 4.2 mmol/L (3.5-5.1); TOTAL BILIRUBIN 0.75 mg/dL (0.20-1.00); TOTAL PROTEIN 5.5 g/dL (6.3-8.3)
--- NOTE | 2019-03-15 08:39 | Diag Imaging Result Doc PS360 ---
EXAM: CHEST-2 VIEWS HISTORY: hypoxia TECHNIQUE: Chest two views COMPARISON: 03/13/2019 FINDINGS: The lungs are hyperexpanded. The pulmonary vessels are small. No cardiomegaly. There is a small left pleural effusion with basilar atelectasis and infiltrates. IMPRESSION: Emphysema with a small left pleural effusion, basilar atelectasis, and infiltrates. Electronically signed by Nima Desir 03/15/2019 8:37 AM
[2019-03-15] MEDS: APRESOLINE PO SCH ×2 (08:52→13:44)
[2019-03-15] MEDS: ALDACTONE PO SCH (08:52)
[2019-03-15] MEDS: COREG PO SCH (08:52)
[2019-03-15] MEDS: PRINIVIL PO SCH (08:52)
[2019-03-15] MEDS: LASIX PO SCH (08:52)
[2019-03-15] MEDS: ISORDIL PO SCH ×2 (08:52→13:44)
[2019-03-15] MEDS: ZITHROMAX 500 MG/NS 500 MG/250 ML IVPB IV SCH (09:09)
[2019-03-15 11:13] VITALS: BP 149/86
[2019-03-15] MEDS: MAXIPIME 1 GM in NS 50 ML IV SCH (11:45)
[2019-03-15] MEDS ORDERED: PNEUMOVAX 23 IM ONE (13:14)
[2019-03-15] MEDS ORDERED: FLU VACCINE IM ONE (13:14)
--- NOTE | 2019-03-16 12:19 | DISCHARGE SUMMARY ---
ADMISSION DATE: 03/11/2019 DISCHARGE DATE: 03/15/2019 DISPOSITION: Home. FOLLOW-UP: 1. Dr. Sandoval. 2. Dr. Morrison. 3. Dr. Lechuga. 4. Dr. Briggs. CONSULTATION DURING ADMISSION: Pulmonary Medicine was consulted. Patient was seen by Dr. Jade, and followed up by Dr. Morrison. INVASIVE PROCEDURES DONE DURING THIS ADMISSION: Thoracentesis was done. 150 mL of clear j[place] colored pleural fluid was obtained from the right hemithorax. IMAGING STUDIES OF SIGNIFICANCE: A chest x-ray showed small bilateral pleural effusions. INCOMPLETE REPORT -- DICTATION ENDED HERE cc: Bill Hoff MD
--- NOTE | 2019-03-16 12:36 | DISCHARGE SUMMARY ---
ADMISSION DATE: 03/11/2019 DISCHARGE DATE: 03/15/2019 CONSULTATION DURING THIS ADMISSION: Pulmonary Medicine was consulted. Patient was seen by Dr. Jade followed up by Dr. Morrison. INVASIVE PROCEDURES DONE DURING THIS ADMISSION: Right thoracentesis was done. 1050 mL of pleural fluid was withdrawn. MICROBIOLOGY DATA OF SIGNIFICANCE: Blood cultures for 48 hours negative and pleural fluid was also no growth. IMAGING STUDIES OF SIGNIFICANCE: 1. A chest x-ray showed small bilateral pleural effusion, centroid infiltrates compatible with pulmonary edema. 2. A CT scan of the chest showed interval development of pericardial effusion, otherwise stable CT scan of the chest. 3. Subsequent chest x-ray showed no evidence of pneumothorax after thoracentesis and improvement of pulmonary edema. ADMISSION DIAGNOSIS: 1. Acute on chronic COPD. 2. Acute severe systolic congestive heart failure. 3. Positive troponin. 4. Elevated liver enzymes. 5. History of ethanol abuse. 6. Marijuana abuse. DIAGNOSIS AT THE TIME OF DISCHARGE: 1. Anasarca secondary to congestive heart failure. 2. Acute on chronic systolic heart failure, ejection fraction of 25% with global hypokinesis on echo. 3. Uncontrolled hypertension, improved during the hospital course. 4. Elevated liver enzymes, presumably due to congestive hepatopathy. 5. Cirrhosis of the liver, presumably multifactorial in etiology including alcohol abuse, hepatitis C, and cardiac origin. 6. Acute versus acute on chronic CKD. The patient will follow up with Dr. Briggs. 7. Elevated troponin on presentation, presumably due to demand mismatch. Cardiology was on board. 8. Right upper lobe mass associated with elevated CEA. The patient will follow up with Pulmonary Medicine. DISCHARGE MEDICATIONS: 1. Hydralazine 25 mg 3 times per day. 2. Isordil 10 mg 3 times per day. 3. Lasix 40 mg p.o. daily. 4. Lisinopril 20 mg p.o. daily. 5. Carvedilol 12.5 p.o. b.i.d. 6. Spironolactone 25 mg p.o. daily. 7. Spiriva inhaler one puff daily. PRESENTING COMPLAINT: Shortness of breath for a day. HISTORY OF PRESENTING COMPLAINT: Mr. Doyle is a 68-year-old male who has a history of COPD, liver disease, PTSD, congestive heart failure. He came into the emergency department because of shortness of breath. Upon presenting, Mr. Doyle was thoroughly evaluated and was found to have positive troponin. A chest x-ray did show bilateral pleural effusions. Mr. Doyle was subsequently admitted for COPD exacerbation and congestive heart failure exacerbation. HOSPITAL COURSE: Mr. Doyle was admitted to the [facility] and was started on IV diuretics. During the hospital course, he did diurese adequately. He was almost 5000 negative balance at the time of discharge. He had also lost about 3 pounds during the hospital course. Mr. Doyle also had a CT scan of the chest which revealed pericardial effusion and right pleural effusion. Because of the right upper lobe mass, it was thought prudent to do a diagnostic tap for fluid cytology. Mr. Doyle subsequently underwent bedside paracenteses by sc. There was not any post procedure complication. A follow-up chest x-ray did reveal improvement in the pulmonary edema and of course the pleural effusion. Mr. Doyle continues to improve during the hospital course. Mr. Doyle was also treated for COPD exacerbation with antibiotics and steroids during the hospital course. He was seen by Pulmonary Medicine as well as a consult by Cardiology. Mr. Doyle's pleural fluid analysis was consistent with a transudative pathophysiology. We think this was related to his congestive heart failure. At the time of the discharge, the cytology was still pending. Mr. Doyle has been advised to follow up with Pulmonary Medicine to follow up on the result. He is also advised to follow up on the right upper lobe mass. This morning, Mr. Doyle refers to be feeling a whole lot better. His vitals are stable. His blood pressure is 149/86, his pulse is 78, respiration is 18, temperature 98.6 degrees. Mr. Doyle is saturating 100% on room air. We think he is fairly stable for discharge. He seems to be now euvolemic without any congestive symptoms and his lungs sound clear without any bronchospasms. He is therefore going to be discharged in stable conditions. All the discharge instructions have been discussed with him and he voiced understanding. Mr. Doyle was found to have a slightly abnormal renal function test since the early beginning of this month. We do not have any interval labs to compare. He has been making adequate urine. He has been advised to follow up with Dr. Briggs outpatient on the renal failure. All the discharge instructions have been discussed with him. Mr. Doyle voiced understanding. Mr. Doyle is going to followup with Dr. Sandoval, stand up comedian, Dr. Morrison, the pantry goods maker, Dr. Lechuga for the cirrhosis, and also Dr. Briggs for the renal failure. TIME SPENT FOR DISCHARGE: 40 minutes. Of note, Mr. Doyle at this point does not have any primary care doctor. He has been advised to look for one and make sure he gets all his care well coordinated. cc: MD Steven Foster MD Reginald D. Gladish, MD Amit Arora, MD Ashish K. Basu, MD
== END 2019-03-15 15:02 | disposition home health service (06) | DRG 291 ==
LOC: SUPCPDRO → ED 23:22 → SUATTDRO 03-11 08:25 → EDIPHOLD 03-11 08:25 → 2N 03-11 12:40
PROVIDERS: ATTEND Internal Medicine

== ENCOUNTER 2019-03-23 21:30 | Inpatient (IN) ==
[2019-03-23] MEDS ORDERED: SOLU-MEDROL IV ONE (21:55)
[2019-03-23] MEDS ORDERED: DUONEB (A & A) INH ONE (21:55)
[2019-03-23] MEDS ORDERED: ALBUTEROL NEB INH ONE (21:55)
[2019-03-23] MEDS ORDERED: PULMICORT INH ONE (21:55)
[2019-03-23] MEDS ORDERED: NS 1,000 ML IV ONE ×2 (22:02→23:09)
[2019-03-23 22:18] LABS: BASO# 0.04 X1000 (0.0-0.2); BASO% 0.3 % (0.0-0.8); HEMATOCRIT 44.6 % (42.0-52.0); HEMOGLOBIN 14.9 g/dL (14.0-18.0); IMM GRAN# 0.13 X1000 (0.0-0.04); IMM GRAN% 0.8 % (0.0-0.5); LYMPH# 1.15 X1000 (1.2-3.4); LYMPH% 7.4 % (20.5-51.1); MCH 33.1 PG (27-31); MCHC 33.4 g/dL (33-37); MCV 99.1 FL (81-99); MONO# 1.56 X1000 (0.11-0.59); NEUT# 12.65 X1000 (1.4-6.5); NEUT% 81.5 % (42.2-75.2); PLT 237 X1000 (130-400); RDW 13.6 % (11.5-14.5); WBC 15.53 X1000 (4.8-10.8)
[2019-03-23 22:26] LABS: ALLEN TEST YES; BE -3.9 mmoll (-3.0-3.0); BLOOD TYPE ARTERIAL; HCO3-(ACT) 21.8 mmoll (20.0-26.0); METHB 1.4 % (0.0-1.5); O2(CT) 19.9 mL/dL (15.0-23.0); O2HB 95.2 % (95.0-99.0); PCO2(98.6) 40 mmHg (35-45); PO2(98.6) 101 mmHg (60-100); SAMPLE BLOOD; SAO2 99.1 % (95.0-100.0); THB 14.8 g/dL (11.5-17.4); pH(98.6) 7.34 (7.35-7.45)
[2019-03-23 22:27] LABS: MODALITY NRB
--- NOTE | 2019-03-23 22:36 | EKG Report ---
Test Performed on : 03/23/2019 9:41:59 PM Test Reason : SOB Blood Pressure : / mmHG Vent. Rate : 149 BPM Atrial Rate : 149 BPM P-R Int : 132 ms QRS Dur : 076 ms QT Int : 330 ms P-R-T Axes : 066 -53 084 degrees QTc Int : 519 ms Sinus tachycardia. Possible Left atrial enlargement Left anterior fascicular block Left ventricular hypertrophy Nonspecific T wave abnormality Abnormal ECG When compared with ECG of 12-MAR-2019 06:12, Vent. rate has increased BY 68 BPM Left anterior fascicular block is now present Nonspecific T wave abnormality no longer evident in Inferior leads T wave inversion less evident in Anterior leads Unconfirmed Result
[2019-03-23 23:08] LABS: ALB/GLOB RATIO 1.3; ALBUMIN 3.9 g/dL (3.5-5.0); CALCIUM 9.1 mg/dL (8.8-10.2); CREATININE 1.7 mg/dL (0.7-1.2); POTASSIUM 4.5 mmol/L (3.5-5.1); TOTAL BILIRUBIN 1.6 mg/dL (0.20-1.00)
[2019-03-23] MEDS ORDERED: VANCOMYCIN 1 GM/NS 1 GM/250 ML IVPB IV ONE (23:09)
[2019-03-23] MEDS ORDERED: NS 500 ML IV ONE (23:09)
[2019-03-23] MEDS ORDERED: MERREM 1 GM in NS 50 ML IV ONE (23:10)
--- NOTE | 2019-03-23 23:22 | PROVIDER DOCUMENTATION ---
This chart was entered by Carito Hubbard Scribe, acting as scribe for Salvador Tomas MD. HPI-Respiratory General - General Chief Complaint: Shortness of Breath Stated Complaint: SOB Time Seen by Provider: 03/23/19 21:39 Source: patient Allergies/Adverse Reactions: Patient Allergies Allergy/AdvReac Type Severity Reaction Status Date / Time Penicillins Allergy HIVES Verified 03/01/19 11:32 Home Medications: Home Medication List Medication Instructions Recorded Confirmed Last Taken Type Carvedilol [Coreg] 12.5 mg PO Q12HR #120 tab 03/15/19 Unknown Rx Furosemide [Lasix] 40 mg PO DAILY #120 tab 03/15/19 Unknown Rx Hydralazine [Apresoline] 25 mg PO TID #180 tab 03/15/19 Unknown Rx Isosorbide Dinitrate [Isordil] 10 mg PO TID #180 tab 03/15/19 Unknown Rx LISINOpril [Prinivil] 20 mg PO DAILY #120 tab 03/15/19 Unknown Rx Spironolactone [Aldactone] 25 mg PO DAILY #120 tab 03/15/19 Unknown Rx Tiotropium [place] Inhaler 1 puff INH RTDAILY #1 inhaler 03/15/19 Unknown Rx [Spiriva] - History of Present Illness-Resp Nature of Presenting Problem: pt is a 68 yr old male presenting via EMS with 1 day complaint of increasing shortness of breath, hx of lung caner and COPD Quality of Pain: reports: none Severity in ED: reports: moderate Onset/Duration: reports: this morning Timing: reports: changing over time, getting worse Context: reports: other (recent lung cancer dx, hx copd) Cough Quality/Degree: reports: moderate Episode Frequency: frequent episodes Current Respiratory Medication Therapy: Initiated none Modifying Factors: improves with: exertion (worsens), oxygen (10LPM non rebreath er improved spo2 from 68%-97%) Associated Symptoms: reports: chest pain/soreness, cough, heart racing, shortness of breath. denies: fever/chills Similar Symptoms Previously?: Yes Recently seen or treated by another doctor?: Yes Review of Systems - Adult - REVIEW OF SYSTEMS - ADULT Constitutional: reports: patsy. denies: chills, fever Eyes: reports: no symptoms reported Ears, Nose, Mouth & Throat: reports: no symptoms reported Cardiovascular: denies: chest pain, palpitations, syncope Respiratory: reports: cough, dyspnea on exertion, shortness of breath Gastrointestinal: reports: no symptoms reported Genitourinary: reports: no symptoms reported Musculoskeletal: reports: no symptoms reported Integumentary: reports: no symptoms reported Neurological: denies: dizziness/vertigo, headache/migraines, syncope Psychiatric: reports: no symptoms reported Endocrine: reports: no symptoms reported Hematologic/Lymphatic: reports: no symptoms reported Allergic/Immunologic: reports: no symptoms reported All Other Systems: Reviewed and Negative Past History - Adult - PAST MEDICAL HISTORY-ADULT Review of Records: reports: Old Records Reviewed, Nursing Assessment Review, Medications Reviewed, Social history reviewed & non-contributory. Major Childhood Illnesses: reports: denies history Cardiovascular: reports: HTN Respiratory: reports: COPD, cancer Gastrointestinal: reports: denies history Obstetrical/Gynecological: reports: denies history Genitourinary: reports: denies history Musculoskeletal: reports: denies history Neurological: reports: CVA Psychiatric: reports: ptsd Endocrine/Immune: reports: denies history Other Conditions: reports: denies history - PRIOR SURGERIES/PROCEDURES Surgical/Procedure History: reports: reviewed, not pertinent - IMMUNIZATION STATUS Childhood Immunizations: See Nurse Assessment Flu Vaccine: See Nurse Assessment - FAMILY HISTORY Family History: reviewed, not pertinent - SOCIAL HISTORY Smoking: cigarettes Provider spent 3-5 mins advising pt. on dangers of tobacco.: Discussed manners to quit use, and f/u contacts for add'l counseling. Living Situation: family Physical Exam-General - PHYSICAL EXAM-ADULT Initial Vital Signs Reviewed: Yes - CONSTITUTIONAL General Appearance: alert, moderate distress, thin - EYES Eyes: PERRL/EOMI - HEAD, EARS, NOSE, MOUTH & THROAT HENMT: normocephalic/atraumatic, moist mucous membranes - NECK Neck: non-tender, full range of motion, supple, normal inspection - RESPIRATORY Respiratory: no pleuratic chest pain, respiratory distress (labored, moderate), decreased breath sounds, retractions, increased rate - CARDIOVASCULAR Cardiovascular: normal peripheral pulses, regular rate, rhythm - GASTROINTESTINAL (ABDOMEN) Abdominal Exam: non tender, soft - MUSCULOSKELETAL Back Exam: normal inspection Extremity: normal range of motion, non-tender, normal inspection - SKIN Integumentary: normal color, normal turgor, warm/dry - NEUROLOGIC Neurologic: grossly normal - PSYCHIATRIC Psych/Mental Status: normal mood/affect Progress - PLAN OF CARE/RESULTS Progress/Plan/Lab Results: Vital Signs - 8 hr 03/23/19 21:36 03/23/19 21:38 03/23/19 21:42 Temperature 98.2 F Pulse Rate 147 H 148 H Respiratory Rate 26 H 24 Blood Pressure 191/146 191/146 O2 Sat by Pulse Oximetry 94 L 93 L 87 L 03/23/19 21:45 03/23/19 22:00 03/23/19 22:15 Temperature Pulse Rate 148 H 145 H 146 H Respiratory Rate 31 H 49 H 23 Blood Pressure O2 Sat by Pulse Oximetry 97 99 98 03/23/19 22:19 Temperature Pulse Rate 144 H Respiratory Rate 25 H Blood Pressure O2 Sat by Pulse Oximetry 98 Laboratory Results - last 24 hr 03/23/19 03/23/19 03/23/19 21:51 22:05 22:05 WBC 15.53 H RBC 4.50 L Hgb 14.9 Hct 44.6 MCV 99.1 H MCH 33.1 H MCHC 33.4 RDW Std Deviation 13.6 Plt Count 237 MPV 10.0 Immature Gran % (Auto) 0.8 H Neut % (Auto) 81.5 H Lymph % (Auto) 7.4 L Gordon % (Auto) 10.0 H Eos % (Auto) 0.0 Baso % (Auto) 0.3 Immature Gran # (Auto) 0.13 H Neut # (Auto) 12.65 H Lymph # (Auto) 1.15 L Gordon # (Auto) 1.56 H Eos # (Auto) 0.00 Baso # (Auto) 0.04 Specimen Type Sample Site pH pCO2 pO2 HCO3 Base Excess Oxyhemoglobin ABG O2 Sat (Calculated) ABG O2 Saturation ABG Carboxyhemoglobin ABG Methemoglobin Kwan Test A-a O2 Difference Total Hemoglobin Lactate Liter Flow Blood Gas Modality FiO2 % Sodium 138 Potassium 4.5 Chloride 99 Carbon Dioxide 21 L Anion Gap 18 BUN 23 H Creatinine 1.7 H Estimated GFR/1.73 m2 40 BUN/Creatinine Ratio 14 Glucose 152 H Calculated Osmolality 282 Calcium 9.1 Total Bilirubin 1.60 H AST 165 H ALT 119 H Alkaline Phosphatase 317 H Troponin T Total Protein 7.0 Albumin 3.9 Globulin 3.1 Albumin/Globulin Ratio 1.3 Plasma Lactate 3.3 H 03/23/19 03/23/19 22:05 22:20 WBC RBC Hgb Hct MCV MCH MCHC RDW Std Deviation Plt Count MPV Immature Gran % (Auto) Neut % (Auto) Lymph % (Auto) Gordon % (Auto) Eos % (Auto) Baso % (Auto) Immature Gran # (Auto) Neut # (Auto) Lymph # (Auto) Gordon # (Auto) Eos # (Auto) Baso # (Auto) Specimen Type ARTERIAL Sample Site R RADIAL pH 7.34 L pCO2 40 pO2 101 H HCO3 21.8 Base Excess -3.9 L Oxyhemoglobin 95.2 ABG O2 Sat (Calculated) 19.9 ABG O2 Saturation 99.1 ABG Carboxyhemoglobin 2.50 ABG Methemoglobin 1.4 Kwan Test YES A-a O2 Difference 562.0 Total Hemoglobin 14.8 Lactate 2.00 Liter Flow 15.0 Blood Gas Modality NRB FiO2 % 100.0 Sodium Potassium Chloride Carbon Dioxide Anion Gap BUN Creatinine Estimated GFR/1.73 m2 BUN/Creatinine Ratio Glucose Calculated Osmolality Calcium Total Bilirubin AST ALT Alkaline Phosphatase Troponin T 0.096 H Total Protein Albumin Globulin Albumin/Globulin Ratio Plasma Lactate Orders Category Date Time Status Thompson Cath Insertion ORDERED Care 03/23/19 23:09 Active IV Insertion ORDERED Care 03/23/19 23:09 Active Intake and Output-Strict ORDERED Care 03/23/19 23:09 Active Notify MD/PA/ELEANOR for exam NOW Care 03/23/19 23:09 Active Nursing- Obtain EKG ONCE Care 03/23/19 21:54 Active Repeat Vital Signs .Blood Pressure Care 03/23/19 23:09 Active Repeat Vital Signs .Heart Rate Care 03/23/19 23:09 Active Repeat Vital Signs .Oxygen Saturation Care 03/23/19 23:09 Active Repeat Vital Signs .Respiratory Rate Care 03/23/19 23:09 Active Repeat Vital Signs .Temp Care 03/23/19 23:09 Active CHEST-1 VIEW [RAD] Stat Exams 03/23/19 21:54 Taken ABG [RESP] Routine Lab 03/23/19 22:20 Completed BLOOD CULTURE [BLDCUL] Stat Lab 03/23/19 21:51 Results BLOOD CULTURE [BLDCUL] Stat Lab 03/23/19 23:08 Ordered CBC WITH DIFF [HEME] Stat Lab 03/23/19 22:05 Completed COMPREHENSIVE METABOLIC PANEL [CHEM] Stat Lab 03/23/19 22:05 Completed LACTATE, PLASMA [CHEM] Stat Lab 03/23/19 21:51 Completed LACTATE, PLASMA [CHEM] Timed Lab 03/23/19 23:09 Uncollected TROPONIN T Stat Lab 03/23/19 22:05 Completed 0.9% Sodium Chloride Inj [Ns] 1,000 ml Med 03/23/19 22:02 Active IV 150 mls/hr 0.9% Sodium Chloride Inj [Ns] 1,000 ml Med 03/23/19 23:09 Discontinued IV As Directed mls/hr 0.9% Sodium Chloride Inj [Ns] 500 ml Med 03/23/19 23:09 Active IV 999 mls/hr Albuterol 2.5MG/Ipratrop 0.5MG [Duoneb (A & A)] Med 03/23/19 21:55 Discontinued 3 ml INH NOW ONE Albuterol [Albuterol Neb] Med 03/23/19 21:55 Discontinued 5 mg INH NOW ONE Budesonide [Pulmicort] Med 03/23/19 21:55 Discontinued 0.5 mg INH NOW ONE Meropenem [Merrem] 1 gm Med 03/23/19 23:10 Active 0.9% Sodium Chloride Inj [Ns] 50 ml IV NOW Methylprednisolone Sod Succ [Solu-Medrol] Med 03/23/19 21:55 Discontinued 125 mg IV NOW ONE Vancomycin 1 gm/Ns Med 03/23/19 23:09 Active 1 gm in 250 ml IV NOW Aerosol Treatments Routine Oth 03/23/19 21:56 Active Aerosol Treatments Stat Oth 03/23/19 21:56 Active EKG [EKG] Stat Ther 03/23/19 21:54 Draft Result Diagrams: 03/23/19 22:05 03/23/19 22:05 - EKG 1 Time of EKG reading by physician:: 21:41 EKG Read and Signed by:: Salvador Tomas EKG Interpretation (*Must complete 3 of following elements*): Abnormal (left anterior fasicular block, poss LAE, non specific t wave abnormality) Rate: 149 Rhythm: sinus tachycardia [place]: normal QRS: LVH [place] Interval: normal - XRAY 1 XRAY Study: Chest Impression: Abnormal (COPD, no infiltrates, no pnuemothorax. abel noted right middle lobe) - CONSULTS/PCP/HOSPITALIST Notification #1 *Consult/PCP/Hospitalist*: Dr Harris Time Discussed: 23:15 Reason/Comments: discussed plan of care for pt admit, admission accepted Consult Disposition: Admit Departure - Departure Date of Disposition Decision: 03/23/19 Time of Disposition Decision: 23:21 DIAGNOSIS: COPD with exacerbation, Hypoxia Sepsis Qualifiers: Sepsis type: sepsis due to unspecified organism Sepsis acute organ dysfunction status: without acute organ dysfunction Qualified Code(s): A41.9 - Sepsis, unspecified organism Disposition: ADMITTED INPATIENT 09 Certified Medical Emergency: Emergent Condition: Good Additional Instructions: ED Follow Up Instructions: You have been treated by a care provider in the Emergency Department. These instructions are being provided to you so you can have an understanding of how to care for yourself upon discharge. Upon discharge from the Emergency Department, you are responsible for making arrangements for follow-up care by a physician of your choice. Take all prescribed medications as directed. Return to the Emergency Department immediately for any new or worsening symptoms. You may call the Physician Referral phone number at [phone] to obtain a list of Physicians who are taking new patients. Referrals and Follow-Ups: None,PCP [Primary Care Provider] - - Critical Care Note This patient required my direct & personal management of CC.: No Attestation - Physician/ ERIC Attestation Patient care was provided by Advanced Practice Provider:: No The physician spent face to face time with patient:: Yes Advanced Practice Provider documentation review:: Supervising physician onsite and consulted in the evaluation and care of this patient. The physician did have a face to face encounter with the patient. This chart was documented by the indicated scribe, (Carito Hubbard Scribe) and accurately reflects the services I performed and decisions made by me, Salvador Tomas MD, as attested by the provider's signature.
[2019-03-24] MEDS: COREG PO SCH ×3 (01:45→20:31)
[2019-03-24] MEDS ORDERED: TYLENOL PO PRN (02:15)
[2019-03-24] MEDS ORDERED: ZOFRAN IV PRN (02:15)
[2019-03-24] MEDS ORDERED: NS NEB INH SCH (02:15)
[2019-03-24] MEDS ORDERED: VANCOMYCIN IV PER PHARMACY MISC SCH (02:15)
[2019-03-24 02:26] LABS: INR 1.18; PROTIME 15.1 Seconds (11.0-16.0)
[2019-03-24 02:27] LABS: PTT 31.7 Seconds (22.3-41.8)
[2019-03-24 02:39] LABS: MAGNESIUM 1.9 mg/dL (1.5-2.7)
[2019-03-24] MEDS ORDERED: VANCOMYCIN 900 MG in NS 250 ML IV ONE (03:00)
[2019-03-24] MEDS: XOPENEX NEB INH SCH ×6 (03:47→23:33)
[2019-03-24] MEDS: ATROVENT NEB INH SCH ×6 (03:48→23:34)
[2019-03-24 05:12] LABS: BASO# 0.01 X1000 (0.0-0.2); BASO% 0.1 % (0.0-0.8); HEMATOCRIT 40.3 % (42.0-52.0); HEMOGLOBIN 13.4 g/dL (14.0-18.0); IMM GRAN# 0.04 X1000 (0.0-0.04); IMM GRAN% 0.4 % (0.0-0.5); LYMPH# 0.33 X1000 (1.2-3.4); LYMPH% 2.9 % (20.5-51.1); MCH 32.8 PG (27-31); MCHC 33.3 g/dL (33-37); MCV 98.5 FL (81-99); MONO# 0.41 X1000 (0.11-0.59); MONO% 3.6 % (1.7-9.3); MPV 9.6 FL (7.4-10.4); NEUT# 10.52 X1000 (1.4-6.5); PLT 173 X1000 (130-400); RBC 4.09 XMIL (4.7-6.1); RDW 13.4 % (11.5-14.5); WBC 11.31 X1000 (4.8-10.8)
[2019-03-24 05:23] LABS: LYMPHS 2 % (21-51); MONO 2 % (1-9); SEGS 94 % (42-75)
[2019-03-24 05:34] LABS: ALB/GLOB RATIO 1.2; ALBUMIN 3.2 g/dL (3.5-5.0); CALCIUM 8.4 mg/dL (8.8-10.2); CREATININE 1.4 mg/dL (0.7-1.2); MAGNESIUM 1.7 mg/dL (1.5-2.7); POTASSIUM 3.9 mmol/L (3.5-5.1); TOTAL BILIRUBIN 1.24 mg/dL (0.20-1.00); TOTAL PROTEIN 5.9 g/dL (6.3-8.3)
--- NOTE | 2019-03-24 06:18 | Diag Imaging Result Doc PS360 ---
CHEST-1 VIEW - 03/23/2019 INDICATION: SOB COMPARISON: 03/15/2019 FINDINGS: There are diffuse interstitial infiltrates throughout the right lung. There is also some patchy infiltrate throughout the left lung. Heart size remains top normal. No pneumothorax. No large pleural effusion. IMPRESSION: Significant bilateral asymmetric infiltrates. Likely represents pneumonia, although pulmonary edema is also possible. Electronically signed by Jose Francisco Licea 03/24/2019 6:16 AM
--- NOTE | 2019-03-24 06:59 | HISTORY AND PHYSICAL ---
PRIMARY CARE PHYSICIAN: The patient reports that he does not have a primary care provider. DATE AND TIME: 03/24/2019 at 0050. CHIEF COMPLAINT: Respiratory distress. HISTORY OF PRESENT ILLNESS: Mr. Doyle is a 68-year-old male with a past medical history most notable for COPD, liver disease, hypertension, CVA, and severe systolic congestive heart failure with the last documented ejection fraction of 25%, chronic kidney disease, history of alcohol abuse, nicotine dependence, recent diagnosis of a right upper lobe mass, history of bilateral pleural effusions which most recently did require right-sided thoracentesis on 03/12/[address] Hoff. The patient was just recently discharged from our facility on 03/15/2019. During this admission, he was treated for COPD exacerbation and acute congestive heart failure. The patient states since being discharged home that he has not been able to follow up with any of the physicians recommended at discharge. He does report he has an appointment with one of them coming up soon though does not remember which one. He states that he has days where he feels better than others. Some days, he is more short of breath than others. He states that for the past day or 2 that he has had progressively worsening shortness of breath. He states it became much worse yesterday on 03/23/2019. He was at home with a family member when he became severely short of breath, and they did call an ambulance. Upon EMS arrival, he was noted to have an oxygen saturation of 68%. He was placed on non-rebreather. Upon arrival to the ER, his oxygen saturation had improved in the mid 90s. He is currently on a non-rebreather at this time maintaining oxygen saturations of 100%. The patient does report he has had a slightly increased cough that is productive of clear sputum. He states that when he gets short of breath and has a coughing spell that he has chest pain that runs across his chest, though other than this is not reporting any chest pain. He states that he does not wear oxygen at home. He is currently still smoking, though has cut this back to half a pack per day at this time. He denies any recent alcohol use. The ER nurses reported to me that the patient is somewhat noncompliant with his home medications as well. Though, he denies any headache, dizziness, abdominal pain, nausea, vomiting, or diarrhea. He denies any dysuria or urinary frequency. He denies any pain, numbness, tingling or swelling in extremities. Upon evaluation in the ER, the patient was noted to have leukocytosis with a white blood cell count of 15, 530. His creatinine is elevated at 1.7, though this does appear to be at his recent baseline. He does have transaminitis. His troponin was also slightly elevated at 0.096. He did have elevated lactate as well. Chest x-ray did show a mass in the right middle lobe. There is a possibility of right-sided pneumonia as well in the right mid and lower lung strickland. The patient does deny any fever, body aches, or chills. He has been tachycardic since arrival and his blood pressure is slightly elevated. Arterial blood gases were obtained on non-rebreather at 100% FiO2, pH was 7.34, pCO2 of 40, PO2 was 101, HC03 was 21.8, and base excess was -3.9 with O2 saturation of 99.1. Since being in the ER, he has had blood cultures obtained. He was started on antibiotics of vancomycin and meropenem. He has been given a DuoNeb treatment, 1 L normal saline bolus, and Solu-Medrol 125 mg IV. His respiratory status has greatly improved since his arrival. The patient is resting comfortably in the bed. He can speak in full sentences. He is still slightly tachypneic though does not appear to be in any respiratory distress now at this time though we will admit him for further treatment and evaluation. REVIEW OF SYSTEMS: A 14 point review of systems was conducted with the patient. All were negative except for pertinent positives mentioned above in HPI. PAST MEDICAL HISTORY: 1. COPD. 2. Systolic congestive heart failure. 3. Liver disease, presumably to be cirrhosis. 4. Hepatitis C. 5. PTSD from [place]. 6. Hypertension. 7. CVA. 8. History of alcohol abuse. 9. Chronic kidney disease. 10. Nicotine dependence. 11. Recent diagnosis of a right upper lobe mass associated with elevated CEA. PAST SURGICAL HISTORY: Right thigh surgery. Other than this, the patient denies any other surgeries. SOCIAL HISTORY: The patient reports he is still smoking at this time, though has cut this down to now half a pack per day. He does have a history of alcohol abuse though denies any current or recent alcohol use. There is no known history of current illicit drug use. FAMILY HISTORY: Positive for his mother having a history of unknown cancer that did metastasize to her brain. His father had a history of lung cancer. ALLERGIES: Patient reports allergies to penicillin. HOME MEDICATIONS: 1. Coreg 12.5 mg p.o. q.12 hours. 2. Lasix 40 mg p.o. daily. 3. Hydralazine 25 mg p.o. t.i.d. 4. Isordil 10 mg p.o. t.i.d. 5. Prinivil 20 mg p.o. daily. 6. Aldactone 25 mg p.o. daily. 7. Spiriva 1 puff inhaled daily. 8. From what I understand, the patient may not be completely compliant with his home medications. DIAGNOSTIC DATA/LABORATORY [place]ULTS: [place] [address], hemoglobin 14.9, hematocrit is 44.6, and platelet count is 237,000. PT 15.1, INR 1.18, PTT is 31.7. Sodium 138, potassium 4.5, chloride 99, serum bicarb is 21, BUN 23, creatinine 1.7 with a GFR 40, glucose 152, and calcium 9.1. Liver function tests are elevated with a total bilirubin of 1.6, AST 165, ALT 119, alkaline phosphatase is 317, and troponin 0.096. Plasma lactate was 3.3. Arterial blood gases were obtained on a non-rebreather with 100% FiO2, pH 7.34, pCO2 40, PO2 101, HC03 is 21.8 with a base excess of -3.9, and O2 saturation is 99.1. EKG showed sinus tachycardia with possible left atrial enlargement and left ventricular hypertrophy at a rate of 149 with a QTc of 519. Though when compared to previous EKGs from 03/11 and 03/12, there does not appear to be any acute changes noted. Chest x-ray does show a right middle lobe mass as well as possible pneumonia in the right mid and lower lung strickland though we are awaiting official radiology over-read. PHYSICAL EXAMINATION: VITAL SIGNS: Temperature 98.2 degrees, heart rate 134, respirations 18, blood pressure is 168/116, and oxygen saturation is 100% on non-rebreather. GENERAL: Mr. Doyle is a very pleasant 68-year-old male. He was resting in the ER stretcher. He is still slightly tachypneic though is not in any respiratory distress. He was able to lay back at approximately 20 to 30 percent incline without any difficulty, and is able to speak in full sentences. HEENT: Head is atraumatic, normocephalic. Pupils are equal, round, reactive to light and were 3 mm bilaterally and brisk. Oral mucosa is moist. Oropharynx is clear. NECK: Supple. Trachea midline. CARDIOVASCULAR: Patient has S1-S2 present. No murmurs, gallops, or rubs appreciated with a tachycardic rate that is regular. PULMONARY: Patient has symmetrical chest expansion bilaterally. Lung sounds in bilateral strickland were clear to auscultation. He did have diminished lung sounds in bilateral bases, and has some crackles noted in the left lung base. The lung sounds were more diminished on the right than the left. ABDOMEN: Soft, nondistended, and nontender. Bowel sounds are present in all 4 quadrants, and were normoactive. EXTREMITIES: No cyanosis or edema noted. Pulse, motor, and sensory were intact in all extremities. Pedal pulses and radial pulses are 2+ bilaterally. INTEGUMENTARY: The patient's skin is pink, warm, and dry. NEUROLOGICAL: Patient is alert and oriented to person, place, time, and situation. He is able move all extremities. There are no focal neurological deficits noted. ASSESSMENT AND PLAN: 1. Acute hypoxic respiratory failure. This is likely secondary to suspected pneumonia as well as COPD. The patient has improved since being placed on non-rebreather. He is maintaining adequate oxygen saturations at 100%. He is able to lay back in the bed without respiratory difficulty. He can speak in full sentences. He is still slightly tachypneic though is in no respiratory distress at this time. We are going to try to wean him down to a Ventimask if possible. We will continue with aggressive pulmonary toilet with frequent encouragement to turn, cough, and deep breathe incentive spirometry, Xopenex and Atrovent treatments. We have obtained blood cultures. We have ordered a sputum culture as well. We have placed him with antibiotic coverage for healthcare associated pneumonia of vancomycin and meropenem. He will be on continuous cardiac telemetry, and pulse oximetry with frequent vital signs q.4 hours. We will continue to monitor him closely. 2. Suspect right middle lobe and lower lobe pneumonia. We will continue treatment as mentioned above for #1. 3. COPD. We will continue with treatment as mentioned above for #1 as well. 4. Congestive heart failure. Fortunately, at this time, the patient does not appear to be in exacerbation. He did receive a 1 L normal saline bolus in the ER though given his history of heart failure, and last known ejection fraction of 25%, we will not do any continuous fluids. We will monitor his fluid volume status closely. We will do strict intake and output. We have continued his regularly prescribed p.o. Lasix. We will continue to monitor this closely. 5. Chronic kidney disease. The patient's creatinine is elevated at 1.7 with a GFR of 40, though he does appear to be at baseline compared to his most recent renal function test. We will continue to monitor closely. We will avoid nephrotoxic medications and renally dose medicines as necessary. We will do strict intake and output. 6. Hypertension. We have continued the patient's regularly prescribed antihypertensive medications. 7. Transaminitis. The patient does have a history of cirrhosis as well as heart failure. This is likely secondary to this. We will continue to monitor this closely. 8. Nicotine dependence. We will continue to family counselor the patient on the importance of smoking cessation during his admission and upon discharge. He declined nicotine patch at this time. 9. Deep vein thrombosis prophylaxis. We have provided him with heparin 5000 units subcutaneously q.12 hours. The patient has been placed in the PVC unit for close monitoring. We will do strict intake and output q.4 hours vital signs. He will be on a heart healthy diet. We will repeat a CBC, CMP, magnesium, lactate, and a series of cardiac enzymes. Further orders and recommendations pending hospital course, diagnostic studies, and physician evaluation. Dictated by ELEANOR Krishna for Giorgi Harris MD I have performed a face to face diagnostic evaluation. Labs/ Xrays- reviewed. Exam Chest- rhonchi, CV- regular, A/P- Acute respiratory failure, pneumonia- Admit, oxygen, check blood cultures, IV abx. Dr. Harris cc: Giorgi Harris MD [facility]
[2019-03-24] MEDS: APRESOLINE PO SCH ×3 (09:08→20:31)
[2019-03-24] MEDS: PRINIVIL PO SCH (09:08)
[2019-03-24] MEDS: LASIX PO SCH (09:08)
[2019-03-24] MEDS: HEPARIN SUBQ SCH ×2 (09:10→20:31)
[2019-03-24] MEDS: ISORDIL PO SCH ×3 (10:22→20:31)
[2019-03-24] MEDS: ALDACTONE PO SCH (10:22)
[2019-03-24] MEDS: MERREM 1 GM in NS 50 ML IV SCH ×2 (10:22→23:37)
--- NOTE | 2019-03-24 13:56 | PROGRESS NOTE ---
DATE: 03/24/2019 SUBJECTIVE: A 68-year-old came in with respiratory distress. His past medical history is notable for COPD, liver disease, hypertension, history of CVA, severe systolic congestive heart failure with last documented ejection fraction 25%, chronic kidney disease, history of alcohol abuse, nicotine dependence, recent diagnosis of right upper lobe mass, history of bilateral pleural effusion, and most recently required right-sided thoracentesis on 03/12/[address] Hoff. Recently discharged from our facility on 03/15/2019. During admission, he was treated for COPD exacerbation, acute congestive heart failure. Since he has been discharged home, he has not been able to follow up with any of his physicians. He had an appointment with them coming up soon, but does not remember which one. Worsening shortness of breath PAST MEDICAL HISTORY: A review again of past medical history: 1. COPD. 2. Systolic congestive heart failure. 3. Liver disease, presumably due to cirrhosis. 4. Hepatitis C. 5. Posttraumatic stress disorder from [place]. 6. Hypertension. 7. CVA. 8. History of alcohol abuse. 9. Chronic kidney disease. 10. Nicotine dependence. 11. Recent diagnosis of right lower lobe mass associated with elevated CEA. PAST SURGICAL HISTORY: Right thigh surgery. Other than this, he denies anything. He has a growth on the back of his neck that he said he has had since he was in [place]. It is a dark pigmented macule. OBJECTIVE: General: On exam today, he feels a lot better. He is sitting up in the bed, breathing comfortably. Vital Signs: Remains afebrile. Pulse 96, respirations 17, temp 98.2 degrees, blood pressure 105/72. HEENT: Pupils are equal round. Lungs: Clear in all lung strickland. Cardiovascular: Regular rhythm and rate without murmur or S3. Abdomen: Soft. Skin: Warm and dry. LABORATORY DATA: White count 11,310, hematocrit 40, platelet count 171,000. Sodium 139, potassium 3.9, chloride 104, BUN 23, creatinine 1.4. A proBNP was greater than 35,000. Note that chest x-ray, significant bilateral asymmetric infiltrates, likely representing pneumonia, although pulmonary edema is possible. ASSESSMENT AND PLAN: 1. Acute hypoxemic respiratory failure likely secondary to suspected pneumonia, atelectasis chronic obstructive pulmonary disease. So, exacerbation of chronic obstructive pulmonary disease has improved since yesterday. Continue supplementary O2 and bronchodilators, wean down his FiO2. We will continue to encourage deep breath and incentive spirometry. 2. Suspect right middle lobe and lower lobe pneumonia. Continue present antibiotics. 3. Chronic obstructive pulmonary disease. 4. Congestive heart failure. He does not appear to have volume overload. His left ventricular ejection fraction last recorded was 25%, so we will watch his volume look. 5. Chronic kidney disease. Creatinine 1.7. We will follow this. 6. Hypertension. 7. Mild transaminitis. This could be from history, he does have history of cirrhosis. 8. Nicotine dependence. 9. Deep venous thrombosis. 10. Review orders, I do not see any change. cc: Kwan Chow MD
[2019-03-25] MEDS: ATROVENT NEB INH SCH ×6 (03:09→23:15)
[2019-03-25] MEDS: XOPENEX NEB INH SCH ×6 (03:09→23:15)
[2019-03-25] MEDS: ALDACTONE PO SCH (08:02)
[2019-03-25] MEDS: ISORDIL PO SCH ×3 (08:02→20:21)
[2019-03-25] MEDS: PRINIVIL PO SCH (08:02)
[2019-03-25] MEDS: HEPARIN SUBQ SCH ×2 (08:02→20:21)
[2019-03-25] MEDS: APRESOLINE PO SCH ×3 (08:02→20:21)
[2019-03-25] MEDS: LASIX PO SCH (08:03)
[2019-03-25] MEDS: COREG PO SCH ×2 (08:03→20:21)
[2019-03-25] MEDS: MERREM 1 GM in NS 50 ML IV SCH ×2 (11:04→23:05)
--- NOTE | 2019-03-25 13:29 | PROGRESS NOTE ---
DATE: 03/25/2019 SUBJECTIVE: Mr. Doyle feels much better, breathing much better. We need to see if he needs home oxygen. Hopefully, he can go home tomorrow. OBJECTIVE: Vital Signs: Temp 98.5 degrees, pulse 85, respirations 18, blood pressure 107/63. HEENT: Pupils are equal and round. Lungs: Clear in all lung strickland. Cardiovascular: Regular rhythm and rate without murmur or S3. Abdomen: Soft. Skin: Warm and dry. Urine output was about a liter. ASSESSMENT AND PLAN: 1. Acute hypoxemic respiratory failure secondary to suspected pneumonia, atelectasis, underlying chronic obstructive pulmonary disease. Continue oxygen, and see if he needs oxygen at home. Continue incentive spirometry. 2. Suspect right middle lobe and lower lobe pneumonia. Continue present antibiotics. 3. Chronic obstructive pulmonary disease. 4. Congestive heart failure. His ejection fraction is about 25%. His volume status seems to be okay. 5. Chronic kidney disease. Creatinine 1.7, is baseline. 6. Hypertension. 7. Mild transaminitis. He does have a history of cirrhosis. 8. Nicotine dependence. Continue current medications. Need to repeat a chest x-ray. Chest x-ray on 03/23/2019 showed significant bilateral asymmetric infiltrates. Will get a PA and lateral. I think we can get that this afternoon. Have Respiratory see if he needs oxygen. cc: Kwan Chow MD
--- NOTE | 2019-03-25 13:34 | Diag Imaging Result Doc PS360 ---
EXAM: CHEST-2 VIEWS INDICATION: Pneumonia TECHNIQUE: 3 views COMPARISON: 03/23/2019 FINDINGS: Since the prior study, there has been significant improvement of the infiltrate throughout the right lung and gross resolution of the milder infiltrate on the left. There are probably trace effusions at the posterior costophrenic angles seen on the lateral view. No new consolidation is identified. The cardiac silhouette is stable. IMPRESSION: Interval significant improvement. Electronically signed by Sonido Lr 03/25/2019 1:32 PM
[2019-03-25] MEDS ORDERED: VANCOMYCIN 1,550 MG in NS 250 ML IV SCH (15:00)
[2019-03-26] MEDS: ATROVENT NEB INH SCH ×3 (04:26→11:58)
[2019-03-26] MEDS: XOPENEX NEB INH SCH ×3 (04:26→11:58)
[2019-03-26] MEDS: ISORDIL PO SCH ×2 (09:12→14:49)
[2019-03-26] MEDS: PRINIVIL PO SCH (09:12)
[2019-03-26] MEDS: ALDACTONE PO SCH (09:12)
[2019-03-26] MEDS: COREG PO SCH (09:12)
[2019-03-26] MEDS: APRESOLINE PO SCH ×2 (09:12→14:49)
[2019-03-26] MEDS: LASIX PO SCH (09:12)
[2019-03-26] MEDS: HEPARIN SUBQ SCH (09:13)
[2019-03-26] MEDS: MERREM 1 GM in NS 50 ML IV SCH (10:22)
[2019-03-26 11:39] VITALS: BP 122/82
--- NOTE | 2019-03-26 13:39 | DISCHARGE SUMMARY ---
ADMISSION DATE: 03/24/2019 DISCHARGE DATE: 03/26/2019 PRIMARY CARE PHYSICIAN: He reports he has no primary care physician. HISTORY: He came in in respiratory distress. A 68-year-old male with a Past Medical History of COPD, liver disease, hypertension, history of CVA in the past, severe systolic congestive heart failure with last documented ejection fraction on 25%, chronic kidney disease, history of alcohol abuse, nicotine dependence, recent diagnosis of right upper lobe lung mass, history of bilateral pleural effusions, most recently required right-sided pleurocentesis on 03/12/[address] Hoff. Recently, he was discharged from our facility on 03/15/2019. During that admission, treated for COPD exacerbation and acute congestive heart failure. The patient states that since discharge, he has not been able to follow up with his physicians, not sure if he wants to follow up. He presented to our hospital. In the emergency room, he was noted to have leukocytosis. [place] [id number]. Creatinine was mildly elevated. His troponin was slightly elevated at 0.096, and the possibility of right-sided pneumonia. We put him on some oxygen, and treated him with some antibiotics. He improved and really wanted to go home. It appeared he was eligible for oxygen so we will set him up for oxygen, and let him go home. I have encouraged him to pursue his follow-up for his lung mass and his respiratory condition. DISCHARGE MEDICATIONS: We will discharge him home on Coreg 12.5 mg twice a day, Lasix 40 mg a day, Apresoline 25 mg 3 times a day, Atrovent nebulizer 0.5 mg q.4 hours, Isordil 10 mg p.o. daily. His sputum cultures showed gram-positive cocci. He is allergic to penicillin. I will discharge him home on some Bactrim Double Strength 1 twice a day for another 7 days. cc: Kwan Chow MD
== END 2019-03-26 16:20 | disposition home or self-care (01) | DRG 189 ==
LOC: ED 21:30 → EDIPHOLD 03-24 03:09 → SUATTDRO 03-24 03:09 → 2N 03-24 11:42
PROVIDERS: ATTEND Emergency Medicine

== ENCOUNTER 2019-06-30 20:48 | Inpatient (IN) ==
[2019-06-30] MEDS ORDERED: SOLU-MEDROL IV ONE (21:00)
[2019-06-30] MEDS ORDERED: DUONEB (A & A) INH ONE (21:00)
[2019-06-30] MEDS ORDERED: NS 1,000 ML IV ONE ×2 (21:00)
[2019-06-30] MEDS ORDERED: VANCOMYCIN 1 GM/NS 1 GM/250 ML IVPB IV ONE (21:01)
[2019-06-30] MEDS ORDERED: MAXIPIME 1 GM in NS 50 ML IV ONE (21:01)
[2019-06-30 21:48] LABS: ALLEN TEST YES; BE -4.5 mmoll (-3.0-3.0); BLOOD TYPE ARTERIAL; HCO3-(ACT) 21.4 mmoll (20.0-26.0); METHB 0.8 % (0.0-1.5); O2(CT) 20.4 mL/dL (15.0-23.0); O2HB 96.3 % (95.0-99.0); PCO2(98.6) 32 mmHg (35-45); PO2(98.6) 107 mmHg (60-100); SAMPLE BLOOD; SAO2 99.7 % (95.0-100.0); pH(98.6) 7.39 (7.35-7.45)
[2019-06-30 21:49] LABS: MODALITY CANNULA
--- NOTE | 2019-06-30 22:06 | Diag Imaging Result Doc PS360 ---
EXAM: CHEST-1 VIEW HISTORY: resp failure TECHNIQUE: Single view COMPARISON: 03/25/2019 FINDINGS: The lungs are well expanded. There are dense bilateral infiltrates. There are also small pleural effusions and cardiomegaly. IMPRESSION: Bilateral infiltrates with small pleural effusions Electronically signed by Nima Desir 06/30/2019 10:03 PM
[2019-06-30 23:33] LABS: BASO# 0.01 X1000 (0.0-0.2); BASO% 0.1 % (0.0-0.8); HEMOGLOBIN 13.8 g/dL (14.0-18.0); IMM GRAN# 0.03 X1000 (0.0-0.04); IMM GRAN% 0.2 % (0.0-0.5); LYMPH# 0.44 X1000 (1.2-3.4); LYMPH% 3.6 % (20.5-51.1); MCHC 32.9 g/dL (33-37); MCV 94.4 FL (81-99); MONO# 0.73 X1000 (0.11-0.59); MPV 10.3 FL (7.4-10.4); NEUT# 10.87 X1000 (1.4-6.5); NEUT% 90.1 % (42.2-75.2); PLT 80 X1000 (130-400); RBC 4.45 XMIL (4.7-6.1); RDW 14.4 % (11.5-14.5); WBC 12.08 X1000 (4.8-10.8)
[2019-06-30 23:53] LABS: ALB/GLOB RATIO 1.2; ALBUMIN 3.1 g/dL (3.5-5.0); CALCIUM 8.6 mg/dL (8.8-10.2); MAGNESIUM 2.4 mg/dL (1.5-2.7); POTASSIUM 5.2 mmol/L (3.5-5.1); TOTAL BILIRUBIN 4.41 mg/dL (0.20-1.00); TOTAL PROTEIN 5.7 g/dL (6.3-8.3)
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
[2019-07-01 00:39] LABS: URINE SOURCE CATH
[2019-07-01 00:43] LABS: BILIRUBIN URINE SMALL (NEGATIVE); BLOOD URINE NEGATIVE (NEGATIVE); COLOR YELLOW; GLUCOSE URINE NEGATIVE (NEGATIVE); KETONE URINE NEGATIVE (NEGATIVE); LEUKOCYTES URINE NEGATIVE (NEGATIVE); NITRITE URINE NEGATIVE (NEGATIVE); PROTEIN URINE 100 mg/dL (NEGATIVE); SP GRAVITY URINE 1.018; TURBIDITY URINE CLEAR (CLEAR); UROBILINOGEN URINE 3 mg/dL (NORMAL)
[2019-07-01 00:58] LABS: INR 1.38; PROTIME 17.3 Seconds (11.0-16.0); PTT 29.3 Seconds (22.3-41.8)
[2019-07-01 01:42] LABS: UR EPITHELIAL CELLS <10 /HPF (<10); URINE BACTERIA NEGATIVE /HPF; URINE RBC <10 /HPF (<10); URINE WBC <10 /HPF (<10)
[2019-07-01] MEDS ORDERED: BENADRYL IV ONE (01:43)
[2019-07-01] MEDS ORDERED: NS 500 ML IV ONE (01:43)
[2019-07-01] MEDS ORDERED: TYLENOL PO ONE (01:43)
[2019-07-01 01:44] LABS: URINE CASTS NONE SEEN; URINE CRYSTALS NONE SEEN; URINE SMALL ROUND CELLS NONE SEEN; URINE YEAST PRESENT
--- NOTE | 2019-07-01 01:48 | HISTORY AND PHYSICAL ---
ADDENDUM: The patient was brought in today from his home because he was profoundly hypoxic, weak. His primary complaint to me was he was complaining of pain all over. His social situation leaves a lot to be desired. Because his for some reason did not accompany him, he was brought in by EMS. The patient is not a very good historian. He was last seen here in March of last year for respiratory distress, possibly secondary to COPD and/or systolic heart failure. Clinically, patient looks severely malnourished and emaciated. His heart rate is 97, his blood pressure is 150/110 blood pressure, respiratory of 25, afebrile. He is 100% on 5 L nasal cannula. When he came in, his O2 saturations were in the 70s. Other than a white count of 12,000 and a BUN of 81 and creatinine of 2.0, by the way his BUN was 23 last year, his other labs are not significant of note. His chest film shows bilateral infiltrates with small pleural effusion. EXAMINATION: General: Profoundly cachectic, middle-aged man. HEENT: He has dry oral mucosa. He has extensive xerostomia, sunken eyelids, bitemporal wasting. Skin: Decreased skin turgor. Chest: Extensive barrel shaped chest with decreased air entry in both lung [place]. Abdomen: Scaphoid with no focal areas of tenderness, decreased hypoactive bowel sounds. ASSESSMENT AND PLAN: This patient has bilateral pneumonia, possibly secondary to aspiration, as he admits to occasionally choking on his saliva. We will start patient on Zosyn, breathing treatments, O2 supplementation. We will cautiously hydrate him. This patient is significantly dehydrated. His prognosis in light of having a depressed LV function of 25%, amongst other things, and the possibility of a malignancy, presumably esophageal cancer, is very poor and the patient and family need to have a discussion with the palliative service or at least go on hospice. cc: Rogelio Calix MD
[2019-07-01] MEDS ORDERED: LABETALOL IV ONE (02:01)
--- NOTE | 2019-07-01 02:28 | ED EKG INTERP ---
EKG Interpretation - EKG Time of EKG reading by physician:: 02:27 EKG Read and Signed by:: Charan Avila EKG Interpretation (*Must complete 3 of following elements*): Abnormal Rate: 94 Rhythm: NSR Belle: left QRS: poor R wave progression, LVH OR Interval: normal ST Wave: non-specific ST changes Attestation - Physician/ ERIC Attestation Patient care was provided by Advanced Practice Provider:: No The physician spent face to face time with patient:: Yes Advanced Practice Provider documentation review:: Supervising physician onsite and consulted in the evaluation and care of this patient. The physician did have a face to face encounter with the patient.
[2019-07-01] MEDS ORDERED: HEPARIN SUBQ SCH (02:45)
[2019-07-01 03:33] LABS: HEMATOCRIT 39.9 % (42.0-52.0); HEMOGLOBIN 12.9 g/dL (14.0-18.0)
[2019-07-01 04:04] LABS: RETIC% 2.21 % (0.8-2.1); RETIC-HE 33.6 PG (28.2-36.6)
[2019-07-01] MEDS ORDERED: ZOSYN 3.375 GM in NS 50 ML IV SCH (04:30)
[2019-07-01] MEDS: NS 1,000 ML IV SCH ×2 (04:33→15:02)
--- NOTE | 2019-07-01 05:19 | EKG Report ---
Test Performed on : 07/01/2019 02:15:37 AM Test Reason : dyspnea Blood Pressure : / mmHG Vent. Rate : 094 BPM Atrial Rate : 094 BPM P-R Int : 150 ms QRS Dur : 092 ms QT Int : 382 ms P-R-T Axes : 072 -41 075 degrees QTc Int : 477 ms Normal sinus rhythm. Possible Left atrial enlargement Left axis deviation Nonspecific T wave abnormality Prolonged QT Abnormal ECG When compared with ECG of 23-MAR-2019 21:41, (Unconfirmed) Vent. rate has decreased BY 55 BPM Unconfirmed Result
[2019-07-01] MEDS ORDERED: FLAGYL 500 MG/NS 500 MG/100 ML IVPB IV SCH (05:30)
[2019-07-01] MEDS ORDERED: ROCEPHIN 1 GM in NS 50 ML IV SCH (05:30)
--- NOTE | 2019-07-01 07:43 | Diag Imaging Result Doc PS360 ---
EXAM: CT ABDOMEN/PELVIS W/O CONTRAST INDICATION: abd pain, acute kidney injury TECHNIQUE: This exam was performed using automated exposure control, adjustment of mA or kV according to patient size, and/or use of iterative reconstruction technique. COMPARISON: 02/21/2019 FINDINGS: There are large bilateral pleural effusions and there is significant bibasilar atelectasis. There is pulmonary edema +/- pneumonia in the right lower lobe. There is marked cardiomegaly. The gallbladder, liver, spleen, pancreas, and adrenal glands are grossly unremarkable as imaged with unenhanced CT. There is a 5 mm nonobstructing intrarenal stone on the right. There is mild chronic prominence of the renal pelvises bilaterally that is stable, more prominent on the left. A Thompson catheter is in the urinary bladder and the bladder is nondistended. No definite bowel wall thickening or bowel obstruction is appreciated. The remainder of the GI tract is grossly unremarkable. There is a small amount of free fluid that is layering in the pelvis. There is trace free fluid tracking around the liver. There is a hyperdense mass along the right pelvic sidewall extending along the iliopsoas muscle and into the right groin measuring up to 19 cm in length consistent with a retroperitoneal hematoma. There is extensive aortoiliac atherosclerotic calcification. There is lumbar spine degenerative arthropathy. There is no evidence of acute osseous abnormality. IMPRESSION: 1.Prominent retroperitoneal hematoma on the right in the pelvis tracking into the right groin. 2.Small volume of fluid layering in the pelvis and tracking around the liver. 3.Large bilateral pleural effusions and bibasilar atelectasis as well as pulmonary edema and likely pneumonia in the right lower lobe. Electronically signed by Sonido Lr 07/01/2019 7:40 AM
[2019-07-01] MEDS ORDERED: VANCOMYCIN IV PER PHARMACY MISC SCH (08:15)
[2019-07-01] MEDS: SOLU-MEDROL IV SCH ×2 (08:54→16:50)
[2019-07-01] MEDS: ISORDIL PO SCH ×4 (08:54→20:52)
[2019-07-01] MEDS: COREG PO SCH ×4 (08:55→20:52)
--- NOTE | 2019-07-01 08:57 | HISTORY AND PHYSICAL ---
PRIMARY CARE PHYSICIAN: None. CHIEF COMPLAINT: Shortness of breath, cough, and weakness. HISTORY OF PRESENT ILLNESS: Mr. Dyole is a 68-year-old male who presents with past medical history of COPD, systolic heart failure, cirrhosis of the liver, hepatitis C, PTSD, hypertension, CVA, alcohol abuse, chronic kidney disease, nicotine dependence, and lung cancer. The patient presents to the ER with complaints of shortness of breath, weakness, cough, chills, diaphoresis, malaise that has been persistently getting worse and worse for the past 4 to 5 days. The patient states he has been unable to eat or drink. He also states he has been choking on his saliva. He states he ran out of his home medications sometime last week and is currently not taking any medicines. The patient denies any headache, dizziness, neck pain, chest pain, palpitations, orthopnea, PND, hemoptysis, nausea or vomiting, melena, hematopoiesis, dysuria, hematuria, syncope, or any other pertinent symptoms at this time. REVIEW OF SYSTEMS: A 10 point review of systems has been obtained. All are negative except listed above in HPI. PAST MEDICAL HISTORY: 1. Chronic obstructive pulmonary disease. 2. Systolic congestive heart failure. 3. Cirrhosis of liver. 4. Hepatitis C. 5. PTSD. 6. Hypertension. 7. CAD. 8. History of alcohol abuse. 9. Chronic kidney disease. 10. Nicotine dependence. 11. Lung cancer with no chemotherapy or radiation treatment. PAST SURGICAL HISTORY: Right thigh surgery. SOCIAL HISTORY: The patient does live at home with his . He states he smokes a pack to half a pack of cigarettes per day. He denies any alcohol abuse or illicit drug use. He states he does use a cane for walking. He wears 2 L nasal cannula. He does use nebulizers. FAMILY HISTORY: His mother was positive for cancer that metastasized to her brain. His father had lung cancer. ALLERGIES: Penicillin causes hives. HOME MEDICATION: 1. Hydralazine 25 mg p.o. t.i.d. 2. Isosorbide dinitrate 10 mg p.o. t.i.d. 3. Furosemide 40 mg p.o. daily. 4. Lisinopril 20 mg p.o. daily. 5. Carvedilol 12.5 mg p.o. b.i.d. 6. Spironolactone 25 mg p.o. daily. 7. Spiriva 1 puff inhaled daily. PHYSICAL EXAMINATION: VITAL SIGNS: Temperature 97.1 degrees, heart rate 99, respiratory rate 24, blood pressure 158/116, O2 saturation 100% on room air. GENERAL: This is a 68-year-old male. He is very thin. He is very frail. He is somewhat acute distress, lying in the ER stretcher. HEENT: Atraumatic, normocephalic. Pupils are equal, round, reactive to light. Sclerae is yellow and pale. Mucous membranes are extremely dry. NECK: Supple. There is no lymphadenopathy. Trachea is midline. No JVD. CV: Regular rate and rhythm. No murmurs, gallops, or rubs appreciated. RESPIRATORY: Lung sounds are coarse. There is expiratory wheezing with rhonchi or rales noted throughout. The patient does have a cough. Respirations are tachypneic. They are even and nonlabored. GI: Abdomen is sunken. It is nontender. Bowel sounds are present x4. : There is a Thompson catheter present in the bladder. Urine is yellow. NEUROLOGIC: The patient is awake, alert, and oriented. Able to follow all my commands. MUSCULOSKELETAL: Full distal strength noted. No abnormalities. EXTREMITIES: No clubbing, no cyanosis, no edema. DP and PT pulses are present. SKIN: Very frail. It is warm and dry. There are multiple skin tears noted to the bony prominences. Turgor is poor. LABORATORY AND DIAGNOSTICS: White blood cell count 12.08, hemoglobin 13.8, hematocrit 42, platelet count 80,000. PT 17.3, INR 1.38. PH 7.39, pCO2 is 32, PO2 is 107, bicarb 21.4. Sodium is 129, potassium is 5.2, chloride 96, carbon dioxide 17, BUN 81, creatinine is 2. Estimated GFR is 33. Glucose is 125. Total bilirubin is 4.41, alkaline phosphatase is 285. ProBNP is greater than 35,000. Plasma lactate initially is 1.9. Repeat is 2.5. CT of the abdomen and pelvis did show a retroperitoneal hematoma. Chest x-ray shows bilateral infiltrates with small pleural effusions. ASSESSMENT: 1. Bilateral pneumonia. 2. Fluid volume deficit. 3. Acute kidney injury versus chronic kidney disease. 4. Hypertension. 5. Transaminitis. 6. Cirrhosis of the liver. 7. Systolic heart failure, chronic. 8. Chronic obstructive pulmonary disease. 9. History of lung cancer. 10. Nicotine dependence. PLAN: We have admitted this patient to the PVC unit. We have started this patient on IV fluid hydration and IV antibiotics for possible aspiration pneumonia. We are going to repeat labs in the morning and a chest x-ray. We have restarted his some of his home medications for his hypertension. He has been placed on strict bedrest. We are going to encourage fluids. He was given a unit of platelets in the ER. We did check an H and H status post initial CT of the abdomen and pelvis. It did drop slightly to 12.9 and 39.9. We did request nursing staff to place a sand bag for compression where his groin stick was. We are going to repeat his CT of the abdomen and pelvis at 9 a.m. this morning to see if this retroperitoneal hematoma has improved. We are going to provide him with DuoNeb treatments, supplemental O2, healthy heart diet. We have consulted Case Management and Community Mental Health Worker. We will repeat his serum lactate per protocol. We have obtained iron studies. The patient did wish to be made a DNR level 1. We will follow his wishes. I have counseled him on smoking cessation for greater than 5 mins. I have provided him with SCD's and protonix IV. All other further treatment pending hospital course and laboratory data. Dictated by ELEANOR Chandler for Rogelio Calix MD cc: Rogelio Calix MD Pt. aware of poor prognosis. Needs palliative care and this will be addressed later. CT noted retroperitoneal hematoma?? Femoral needlestick in ER, somewhat doubtful. Will recheck CT scan to document if there has been any progression of hematoma. For now, pressure to R inguinal site. Surgery will see,but not much to be done in this patient; maybe percutaneous drainage if symptomatic. BEATRIZD
--- NOTE | 2019-07-01 10:08 | Diag Imaging Result Doc PS360 ---
EXAM: CT ABDOMEN/PELVIS W/O CONTRAST INDICATION: s/p retroperitoneal hematoma look for improvement TECHNIQUE: This exam was performed using automated exposure control, adjustment of mA or kV according to patient size, and/or use of iterative reconstruction technique. COMPARISON: 07/01/2019 FINDINGS: Bilateral large pleural effusions, bibasilar atelectasis, and infiltrate in the right lower lobe are stable as compared to the very recent previous study. Small volume ascites around the liver and in the pelvis is again noted. There may be slightly more fluid around the liver as compared to the previous study. The retroperitoneal hematoma at the right pelvic sidewall extending into the right groin is essentially stable as compared to the very recent previous study. The remainder of the solid viscera of the abdomen and pelvis as well as the GI tract are essentially unchanged as compared to the previous study. IMPRESSION: Essentially stable retroperitoneal hematoma at the right pelvic sidewall extending to the right groin. Electronically signed by Sonido Lr 07/01/2019 10:06 AM
--- NOTE | 2019-07-01 10:53 | GENERAL SURGERY CONSULTATION ---
DATE: 07/01/2019 REQUESTING PHYSICIAN: Emergency room. CONSULT REQUESTED FOR: Retroperitoneal hematoma. HISTORY OF PRESENT ILLNESS: A 68-year-old gentleman presenting to the ER with shortness of breath, cough and weakness. He has esophageal cancer. He has been getting chemoradiation. He was previously admitted back in March for similar issues. It was noted in the emergency department that they had a difficult time getting labs, and so a femoral artery was stuck for labs. He developed some pain, and a CT scan showed a retroperitoneal hematoma at this site on the right side. I was asked to weigh an opinion. Patient is tender in the area, but otherwise is hemodynamically stable. PAST MEDICAL HISTORY: COPD, systolic congestive heart failure, cirrhosis, hepatitis C, PTSD, hypertension, CVA, alcohol abuse, chronic kidney disease, nicotine dependence, and esophageal cancer. PAST SURGICAL HISTORY: Includes right thigh surgery. SOCIAL HISTORY: Current smoker. HOME MEDICATIONS: Reviewed. ALLERGIES: Penicillin. FAMILY HISTORY: Reviewed with the patient and noncontributory. REVIEW OF SYSTEMS: Full 14 systems reviewed, negative except as specified in HPI. PHYSICAL EXAMINATION: Vital Signs: Patient is currently afebrile. His vital signs stable. General: No acute distress. Cachectic looking male, looks older than his stated age. HEENT: Normocephalic, atraumatic. Pupils equal, round, reactive to light. Mucous membranes moist. Oropharynx benign. Neck: Supple. Trachea midline. Cardiovascular: Regular rate and rhythm. Lungs: Grossly clear. Abdomen: Soft, nontender. Right groin with a palpable knot. No ecchymosis. Some tenderness. His mass is not pulsatile. Extremities: Moves all extremities. Neurologic: Grossly intact. Skin: Positive for jaundice. Vascular: All extremities perfused. LABORATORY: Reviewed. Of note, his most recent hematocrit is 39.9. ASSESSMENT AND PLAN: A 68-year-old gentleman with a retroperitoneal hematoma after femoral artery stick. Retroperitoneal hematoma: At this time, recommend continue supportive care. We will try to avoid any kind of surgical intervention on this area, but we will continue to monitor his hematocrit. cc: Steven Harris MD
[2019-07-01] MEDS: DUONEB (A & A) INH SCH ×4 (11:34→23:42)
[2019-07-01 13:06] LABS: ALLEN TEST YES; BE -7.3 mmoll (-3.0-3.0); BLOOD TYPE ARTERIAL; HCO3-(ACT) 19.2 mmoll (20.0-26.0); METHB 0.7 % (0.0-1.5); O2(CT) 17.9 mL/dL (15.0-23.0); O2HB 96.9 % (95.0-99.0); PCO2(98.6) 35 mmHg (35-45); PO2(98.6) 109 mmHg (60-100); SAMPLE BLOOD; SAO2 99.7 % (95.0-100.0); pH(98.6) 7.32 (7.35-7.45)
[2019-07-01 13:10] LABS: MODALITY NRB
--- NOTE | 2019-07-01 14:32 | PROGRESS NOTE ---
DATE: 07/01/2019 INTERVAL HISTORY: The patient remains arousable, but more somnolent this morning. He arouses fairly easily, but falls back asleep almost immediately. What responses he gives seem appropriate, but it is difficult to have any kind of real conversation with him because he nods off so rapidly, and then has to be reminded of what was being discussed. Remains on nonrebreather, but with pretty good saturations. Looks like we may have some room to wean down his oxygen. REVIEW OF SYSTEMS: Unable to obtain secondary to the patient's mental status. LABORATORY DATA: Initial hemoglobin 13.8, repeat 12.9. ABG with pH of 7.32, pCO2 of 35, PO2 of 109 on 100% nonrebreather. Repeat lactate 2.5, basically the same as what he came in with. Urinalysis essentially unremarkable. IMAGING: Initial CT abdomen and pelvis with prominent retroperitoneal hematoma on the right, tracking down to the right groin. Large bilateral pleural effusions and bibasilar atelectasis, as well as pulmonary edema and likely pneumonia in the right lower lobe. Repeat CT abdomen and pelvis with essentially stable retroperitoneal hematoma. PHYSICAL EXAMINATION: Vital Signs: T-max 97.5 degrees, pulse 86, respirations 17, blood pressure 134/96, O2 saturation 100% on nonrebreather. General: No acute distress. Chronically ill- appearing. Markedly cachectic. HEENT: Normocephalic, atraumatic. Cardiovascular: Regular rate and rhythm. Pulmonary: Markedly decreased breath sounds throughout. A few scattered rhonchi and rales noted. Abdomen: Soft. Seems to have some mild diffuse tenderness without rebound or guarding. Bowel sounds decreased. Extremities: Peripheral pulses intact. No clubbing, cyanosis. Neurologic: Limited a little bit by lack of patient cooperation, but moves eyes to all quadrants. Pupils equal, round, reactive to light. Moves all extremities intermittently. Psychiatric: Asleep. Arouses fairly easily, but does not stay aroused, falls back asleep almost immediately, but what verbal responses he does give seem appropriate. ASSESSMENT AND PLAN: 1. Pneumonia and sepsis. The patient's tachycardia and tachypnea improved. Blood pressure remains good. The patient appears to have good perfusion, although lactate is still mildly elevated. Will continue fairly aggressive fluid resuscitation, and recheck lactate in a few hours. Patient on antibiotics initially with Rocephin and Flagyl, changed to vancomycin and cefepime as the patient has been in and out of hospitals and rehabs for the last several months. High risk for resistant organisms. 2. Metabolic encephalopathy. Patient reportedly pretty awake and coherent on admission. The patient is still coherent, but quite somnolent. Initial concern was for carbon dioxide retention and narcosis, but repeat ABG shows normal carbon dioxide. It may be due to his variety of underlying conditions and comorbidities. Monitor closely. 3. Retroperitoneal hematoma. Appears to be spontaneous. I cannot find any history of recent instrumentation. Surgery is on board, but recommends only conservative treatment, which seems quite reasonable given his comorbidities. Repeat CT shows essentially no change in the hematoma. Repeat hemoglobin down a little from 13.8 to 12.9, but not a huge decrease. Will continue to monitor blood counts and the patient's clinical status. 4. Chronic obstructive pulmonary disease with possible exacerbation. Patient with breath sounds that are so markedly decreased that it is difficult for me to pick out wheezing or rhonchi to speak of. Not entirely sure that this is his baseline chronic obstructive pulmonary disease, but will go ahead and give DuoNebs and steroids to see if we can open his lungs up some. Monitor closely. 5. Chronic systolic congestive heart failure. Last ejection fraction 25%. Not really much to suggest volume overload at this point. Trying to give some fluid resuscitation to improve his lactate, but will have to be careful not to overload him. 6. Pancytopenia, likely multifactorial with cirrhosis and possibly underlying cancer. Most prominent is the thrombocytopenia with platelets down to 80. Other cytopenias are mild. Transfusing platelets in light of spontaneous retroperitoneal bleed. Will try to keep him above 100. Recheck CBC this afternoon. Checking iron studies. 7. Likely cirrhosis. Patient with imaging consistent with cirrhosis, thrombocytopenia, which is likely also related to cirrhosis, as well as ascites on his abdomen. Complicates this picture, but likely nothing to do about it right now. 8. Acute kidney injury versus chronic kidney disease 3B. The patient's creatinine has varied wildly over the last year or so. It has been as low as 1.4, but mostly seems to be in the high 1s or low 2s, which is where he is here. Will treat underlying conditions, and monitor, but I suspect this is more chronic kidney disease 3B than it is acute kidney injury. 9. Hyperkalemia. Minimal. Will follow with labs, but should resolve with treatment for his other issues as above. 10. Severe protein calorie malnutrition, possibly cancer-related cachexia. Patient with low body mass index at 15, marked global muscle wasting, all consistent with severe protein calorie malnutrition. Does not look to have been diagnosed here, but reportedly, the patient has a recent diagnosis of throat cancer, which is likely also contributing. Nutrition is likely to be a major issue for him. If he is not able to wake up any in the next day or two, will likely either place nasogastric tube or start total parenteral nutrition. 11. Malignancy. Exact diagnosis is not entirely clear, and patient not able to give me much history currently, but reportedly with recent diagnosis of a throat and/or lung cancer. Will monitor. CRITICAL CARE TIME: 70 minutes were spent immediately available to the patient, examining the patient, reviewing labs and imaging, and making medical decisions.
[2019-07-01 14:44] LABS: HEMATOCRIT 37.9 % (42.0-52.0); HEMOGLOBIN 12.2 g/dL (14.0-18.0); MCH 31.4 PG (27-31); MCHC 32.2 g/dL (33-37); MCV 97.4 FL (81-99); MPV 10.4 FL (7.4-10.4); RBC 3.89 XMIL (4.7-6.1); RDW 14.4 % (11.5-14.5); WBC 10.67 X1000 (4.8-10.8)
[2019-07-01] MEDS: MAXIPIME 2 GM/NS 2 GM/100 ML IVPB IV SCH (15:02)
[2019-07-01 15:14] LABS: CALCIUM 8.3 mg/dL (8.8-10.2); POTASSIUM 4.9 mmol/L (3.5-5.1)
[2019-07-02] MEDS: SOLU-MEDROL IV SCH ×3 (00:12→17:02)
[2019-07-02] MEDS: MAXIPIME 2 GM/NS 2 GM/100 ML IVPB IV SCH ×2 (00:13→14:18)
[2019-07-02] MEDS: DUONEB (A & A) INH SCH ×6 (03:32→23:05)
--- NOTE | 2019-07-02 06:20 | Diag Imaging Result Doc PS360 ---
EXAM: CHEST-PORTABLE HISTORY: Pneumonia TECHNIQUE: Single view COMPARISON: 2019 FINDINGS: There are infiltrates in the mid and lower lungs as well as small pleural effusions and basilar atelectasis. Heart remains mildly enlarged. The overall appearance is similar to the prior exam. IMPRESSION: No interval improvement Electronically signed by Nima Desir 07/02/2019 6:18 AM
[2019-07-02 06:40] LABS: CALCIUM 8.1 mg/dL (8.8-10.2); CREATININE 1.9 mg/dL (0.7-1.2)
[2019-07-02 06:55] LABS: HEMATOCRIT 37.2 % (42.0-52.0); HEMOGLOBIN 11.3 g/dL (14.0-18.0); LYMPH# 0.29 X1000 (1.2-3.4); LYMPH% 2.6 % (20.5-51.1); MCH 30.5 PG (27-31); MCHC 30.4 g/dL (33-37); MCV 100.3 FL (81-99); MONO# 0.53 X1000 (0.11-0.59); MONO% 4.8 % (1.7-9.3); MPV 10.4 FL (7.4-10.4); NEUT# 10.21 X1000 (1.4-6.5); NEUT% 92.6 % (42.2-75.2); PLT 71 X1000 (130-400); RBC 3.71 XMIL (4.7-6.1); RDW 14.5 % (11.5-14.5); WBC 11.03 X1000 (4.8-10.8)
[2019-07-02 07:34] LABS: BASO 1 % (0-1); LYMPHS 2 % (21-51); MONO 1 % (1-9); SEGS 96 % (42-75)
[2019-07-02] MEDS ORDERED: NS 1,000 ML IV SCH (07:45)
[2019-07-02] MEDS: COREG PO SCH ×2 (08:43→21:24)
[2019-07-02] MEDS: ISORDIL PO SCH ×3 (08:44→21:24)
--- NOTE | 2019-07-02 10:23 | GENERAL SURGERY PROGRESS NOTE ---
DATE: 07/02/2019 The patient's retroperitoneal hematoma seems stable, and on exam, he does not seem to have any ecchymosis or pseudoaneurysm or bulge in his right groin. From a surgical point of view, I would just recommend monitoring, and we will be available as needed. cc: Steven Harris MD
--- NOTE | 2019-07-02 15:43 | Diag Imaging Result Doc PS360 ---
EXAM: CHEST-PORTABLE 07/02/2019 HISTORY: dyspnea, worsening hypoxia TECHNIQUE: Portable upright at 1521 COMMENT: There is diffuse alveolar opacity in the lower lung strick[place] bilaterally particularly in the right lower lobe. There are also bilateral pleural effusions. The latter appears to have worsened since 07/02/2019 at 0543. IMPRESSION: Pulmonary edema plus minus pneumonia. Worsening pleural effusions. Electronically signed by Trey Matamoros 07/02/2019 3:41 PM
--- NOTE | 2019-07-02 17:16 | PROGRESS NOTE ---
DATE: 07/02/2019 INTERVAL HISTORY: The patient's mental status markedly improved. Much more awake and cooperative although he remains oriented to person only. Remains on non-rebreather but saturations have been excellent overnight and looks like we have significant room to wean oxygen. Remains afebrile. No acute events overnight. No new complaints aside from continued nonproductive cough. REVIEW OF SYSTEMS: 12 point review of systems negative, except as per interval history. LABORATORY DATA: WBC 11.0, hemoglobin 11.3, hematocrit 37.2, platelets 71,000. Sodium 134, potassium 5, bicarbonate 15, BUN 85, creatinine 1.9, glucose 126. IMAGING: Chest x-ray with continued infiltrates in the mid and lower lungs and small effusions similar to previous. VITALS: T-max 98.2 degrees, pulse 65, respirations 17, blood pressure 98/72. O2 saturation 100% on non-rebreather. PHYSICAL EXAMINATION: General: No acute distress. Chronically ill-appearing, markedly cachectic. HEENT: Normocephalic, atraumatic. Moist mucous membranes. Cardiovascular: Regular rate and rhythm. Pulmonary: Still significantly decreased breath sounds throughout with a few scattered rhonchi but moving air better than previously. Abdomen: Soft. No tenderness noted today. Bowel sounds decreased but present. Extremities: Peripheral pulses intact. No clubbing, cyanosis. Neurologic: Slightly hard of hearing. Cranial nerves otherwise intact. Globally weak but no focal deficits identified. Psychiatric: Awake, alert, oriented to person only, but cooperative and most responses are appropriate. ASSESSMENT AND PLAN: 1. Pneumonia and sepsis. The patient no longer with tachycardia or tachypnea. Blood pressure remains low normal but improved from previous. Recheck lactic acid back to within normal limits. Continue antibiotics with cefepime and vancomycin. Blood cultures no growth so far. 2. Patient with some clinical improvement in blood pressure and mental status but still requiring a lot of oxygen. We will go ahead and ask Pulmonology if they have any other thoughts. 1. Retroperitoneal hematoma appears to be spontaneous. No history of recent instrumentation. Stable on recheck CT. Monitoring blood counts. Surgery on board, but the patient is a pretty terrible surgical candidate so that would be a last resort. 2. Metabolic encephalopathy markedly improved today. Yesterday, he could hardly stay awake long enough to say a couple words now he is responding mostly appropriately, although he remains mildly confused. 3. Chronic obstructive pulmonary disease with likely exacerbation. Still not much in the way of wheezing, but moving air significantly better today. Continue nebulizers and steroids and monitor. 4. Chronic systolic congestive heart failure last ejection fraction 25%. A little bit of pleural effusions, but otherwise not much to suggest volume overload. We will decrease fluids now that his blood pressure is improved. However, monitor ins and outs carefully and try to avoid overloading. 5. Pancytopenia, multifactorial cirrhosis and likely underlying cancer. Continued thrombocytopenia. If it worsens, then may have to transfuse further platelets. He has got 1 unit thus far. In light of his hematoma anything under 50, will need to be transfused. 6. Likely cirrhosis. Patient with imaging consistent to have cirrhosis, pancytopenia, and some minor ascites in the abdomen. Monitor. 7. Likely chronic kidney disease 3B. Patient with creatinine 1.922. Has had creatinine as low as 1.7 in the last few months, but generally in the low 2s where he is today. Likely chronic kidney disease 3B, but we will treat underlying conditions and monitor for improvement. 8. Hyperkalemia, resolved. Monitor. 9. Unclear history of malignancy. The patient is still a pretty poor historian despite his improvement in mental status. Reportedly with recent diagnosis of throat and/or lung cancer, but unsure as to his exact diagnosis. Likely contributing to his marked cachexia on exam. 10. Severe protein calorie malnutrition. The patient with BMI 15, marked global muscle wasting, cachexia likely cancer related. Mental status markedly improved, so will try to feed him and see how he does. If his p.o. intake is poor, then may have to start TPN or other source of nutrition.
[2019-07-02] MEDS ORDERED: LASIX IV ONE ×2 (18:11→19:16)
[2019-07-02] MEDS: VANCOMYCIN 1 GM/NS 1 GM/250 ML IVPB IV SCH (20:54)
[2019-07-03] MEDS: SOLU-MEDROL IV SCH (00:43)
[2019-07-03] MEDS: MAXIPIME 2 GM/NS 2 GM/100 ML IVPB IV SCH ×3 (00:43→14:31)
--- NOTE | 2019-07-03 00:56 | PULMONOLOGY CONSULTATION ---
DATE: 07/02/2019 CONSULTING PHYSICIAN: Dr. Jayesh Cast. REASON FOR CONSULT: Ongoing hypoxic respiratory failure. HISTORY OF PRESENT ILLNESS: This is a 68-year-old gentleman with a past medical history of COPD, systolic heart failure, cirrhosis of the liver, hepatitis C, hypertension, alcohol abuse, chronic kidney disease, and lung cancer with no chemotherapy or radiation treatment. He presented to the complaining of shortness of breath, weakness, cough, chills, diaphoresis, and was found to have bilateral pneumonia with sepsis as well as be in a COPD exacerbation as well as be significantly dehydrated. Of note, Mr. Doyle does have a depressed LV function with an EF of 25%. He reportedly has esophageal cancer that he has received no treatment for and profoundly dehydrated. He was tachycardic on admission with a chest x-ray revealed bilateral infiltrates with small pleural effusions. In the emergency room he underwent a femoral artery stick for labs, developed some pain and was found to have a retroperitoneal hematoma on the right side which was evaluated by General Surgery and was recommended that we continue to monitor hematocrits which have stayed stable at 37 to 42. With fairly aggressive fluid resuscitation, tachycardia and tachypnea improved with lactate improving from 2.5 to 1.4. He did have clinical improvement in blood pressure and mental status, but required a lot of oxygen being placed on a nonrebreather requiring 100% nonrebreather to keep saturations ranging 92 to 100 percent. He was placed on BiPAP and Pulmonary was consulted. PAST MEDICAL HISTORY: 1. COPD with ongoing tobacco use. 2. Alcohol abuse. 3. Alcohol-related liver disease. 4. Posttraumatic stress disorder. 5. Right upper lobe mass. 6. Left upper lobe nodule. 7. Protein calorie malnutrition. 8. Cardiomyopathy with a severe reduced ejection fraction. SOCIAL HISTORY: Continued tobacco, alcohol use with frequent use of marijuana. REVIEW OF SYSTEMS: Discussed with patient with weight loss, shortness of breath, generalized weakness, and cough, chills, diaphoresis. PHYSICAL EXAMINATION: General: This is a frail, emaciated, cachectic white male with a BMI of 15.2 who is sitting up on the bed in no distress. Vital Signs: Blood pressure is 100/70 with a heart rate of 67, respirations are 20 to 22, temperature is 98 degrees with O2 saturations that are running 92 to 100 on a nonrebreather. HEENT: Head is normocephalic, atraumatic. Mucous membranes are moist. Neck: Supple with trachea midline. Cardiovascular: Regular rate and rhythm. S1 and S2 appreciated. He has no lower extremity edema. Pulmonary: Breath sounds have some scattered rhonchi that clear to cough. Chest rises and falls symmetric with respiration. Chest wall is nontender to palpation. Gastrointestinal: Abdomen is soft, nontender, nondistended with bowel sounds in all 4 quadrants. Neurologic: He is hard of hearing. He is weak, and alert and oriented. LABORATORIES: WBC is 11 with hemoglobin 11.3, hematocrit 37.2, and platelets of 71,000. Sodium 134, potassium 5, BUN 85, creatinine 1.9 with a glucose of 126. ASSESSMENT AND PLAN: 1. Sepsis due to bilateral pneumonia Continue IV vancomycin and Cefepime. Sputum culture blood cultures revealed no growth after 48 hours. 2. Chronic hypoxemia. BiPAP, move to ICU. 3. Continued chronic obstructive pulmonary disease with likely exacerbation. bronchodilators as well as steroids. 4. Chronic systolic heart failure with last ejection fraction 25%. The patient requiring 100% oxygen. In reviewing his I and O, he is cumulatively 2345 mL positive. IV diuresis. strict I and O 5. Retroperitoneal hematoma. The patient is status post a femoral stick. Surgery is following. 6. Metabolic encephalopathy. 7. Pancytopenia, very likely secondary to cirrhosis and underlying cancer. We will continue to monitor daily labs. 8. Chronic kidney disease stage IIIB. We will continue to monitor daily labs, renal dose medications as appropriate. 9. Electrolyte imbalance. We will treat as appropriate. 10. Unclear history of malignancy. 11. Severe protein calorie malnutrition. This is being followed by primary team. Plan discussed with Dr Morrison. Dictated by ELEANOR Dooley for Steven Morrison MD Clinical exam was performed by ELEANOR Munroe. The lab and x-ray was reviewed by this practitioner. We discussed the case. I agree with her assessment and plan. Steven Morrison M.D. cc: ELEANOR Dooley MD [facility]
[2019-07-03] MEDS: DUONEB (A & A) INH SCH ×6 (03:20→23:45)
[2019-07-03 05:25] LABS: ALLEN TEST YES; BE -10.2 mmoll (-3.0-3.0); BLOOD TYPE ARTERIAL; METHB 0.6 % (0.0-1.5); O2(CT) 17.2 mL/dL (15.0-23.0); O2HB 96.8 % (95.0-99.0); PCO2(98.6) 22 mmHg (35-45); PO2(98.6) 209 mmHg (60-100); SAMPLE BLOOD; SAO2 99.8 % (95.0-100.0); THB 12.3 g/dL (11.5-17.4); pH(98.6) 7.38 (7.35-7.45)
[2019-07-03 05:26] LABS: MODALITY NRB
[2019-07-03 06:07] LABS: HEMOGLOBIN 11.5 g/dL (14.0-18.0); IMM GRAN# 0.02 X1000 (0.0-0.04); IMM GRAN% 0.2 % (0.0-0.5); LYMPH# 0.36 X1000 (1.2-3.4); LYMPH% 3.4 % (20.5-51.1); MCH 30.7 PG (27-31); MCHC 31.9 g/dL (33-37); MCV 96.3 FL (81-99); MONO# 0.27 X1000 (0.11-0.59); MONO% 2.6 % (1.7-9.3); MPV 11.2 FL (7.4-10.4); NEUT# 9.88 X1000 (1.4-6.5); NEUT% 93.8 % (42.2-75.2); PLT 72 X1000 (130-400); RBC 3.74 XMIL (4.7-6.1); WBC 10.53 X1000 (4.8-10.8)
[2019-07-03 06:31] LABS: ALB/GLOB RATIO 1.1; ALBUMIN 2.8 g/dL (3.5-5.0); CALCIUM 7.7 mg/dL (8.8-10.2); CREATININE 2.2 mg/dL (0.7-1.2); POTASSIUM 5.4 mmol/L (3.5-5.1); TOTAL BILIRUBIN 2.05 mg/dL (0.20-1.00); TOTAL PROTEIN 5.3 g/dL (6.3-8.3)
--- NOTE | 2019-07-03 07:30 | Diag Imaging Result Doc PS360 ---
EXAM: CHEST-PORTABLE 07/03/2019 HISTORY: dyspnea TECHNIQUE: AP portable at 0541 COMMENT: Compared to 07/02/2019 there is apparently more pleural fluid on the right. There continues to be interstitial opacity as well as alveolar opacities particularly in the right lower lobe and inferior right upper lobe. There may be slight improvement with respect to pleural fluid and opacification of the left lower lobe. IMPRESSION: Pleural effusions, pulmonary edema plus minus pneumonia. Electronically signed by Trey Matamoros 07/03/2019 7:27 AM
[2019-07-03 07:51] LABS: BANDS 2 % (0-1); LYMPHS 4 % (21-51); MONO 2 % (1-9); SEGS 92 % (42-75)
[2019-07-03] MEDS ORDERED: LASIX IV ONE (08:07)
[2019-07-03] MEDS ORDERED: ZAROXOLYN PO ONE (08:07)
[2019-07-03] MEDS: COREG PO SCH ×2 (09:50→20:27)
[2019-07-03] MEDS: ISORDIL PO SCH ×3 (09:50→20:27)
--- NOTE | 2019-07-03 12:11 | Diag Imaging Result Doc PS360 ---
EXAM: CT HEAD W/O CONTRAST 07/03/2019 HISTORY: Encephalopathy, unequal pupils, thrombocytopneia TECHNIQUE: This exam was performed using automated exposure control, adjustment of mA or kV according to patient size, and/or use of iterative reconstruction technique. COMMENT: There is extensive abnormal lucency in the white matter of both hemispheres. There is cortical and subcortical encephalomalacia in the right occipital lobe which was not present on 02/17/2019. This may represent a subacute infarction. There is no evidence of bleed or abnormal extra-axial fluid collection. The calvarium is intact. The visualized paranasal sinuses are clear. IMPRESSION: Subacute infarction in the right occipital lobe. Chronic ischemic microvascular white matter changes. In view of the chronic changes further evaluation with MRI may be desirable. Electronically signed by Trey Matamoros 07/03/2019 12:08 PM
--- NOTE | 2019-07-03 13:18 | PROGRESS NOTE ---
DATE: 07/03/2019 INTERVAL HISTORY: Yesterday Mr. Doyle did develop an episode of hypoxia for which he was transferred back to ICU. He was given doses of intravenous Lasix which he did not respond well to and had only about 600 mL of urine output. He was started on BiPAP, which he tolerated well for about a couple of hours. Since then he was doing okay on the NRB mask. SUBJECTIVE: Mr. Doyle is alert. He denies any chest pain or shortness of breath. However, he appears confused and is not able to contribute to the history meaningfully. Vital Signs: Currently temperature of 97 degrees, pulse of 65, respiratory rate 13, blood pressure 113/79. He is saturating 100% on NRB mask. Oral cavity is dry. Respiratory: He has adequate air entry in bilateral supramammary region. Decreased air entry with mild inspiratory crackles in bilateral inframammary region. However, breath sounds are distant because of chronic obstructive pulmonary disease. Cardiovascular: S1, S2 normal. No murmur or gallop. Abdomen: Is scaphoid, soft, nontender. Neuromuscular: No lower extremity edema. He has urine catheter. He is able to move bilateral upper extremities above ground level. He is able to wiggle both of his toes, however, he feels weak and is not able to lift both lower extremities above ground level. His right pupil is slightly larger than left. Both of them are equally reacting to light. He has intact femoral pulses bilaterally. INPUT AND OUTPUT: Suggest only 600 mL of urine output. LABORATORIES: Suggestive of mild leukocytosis, normocytic anemia, persistent thrombocytopenia. He does have adequate oxygenation on NRB mask. He has acute kidney injury on chronic kidney disease stage 3, elevated bilirubin and alkaline phosphatase. No positive microbiological data. IMAGING: Chest x-ray morning suggests pleural effusion, pulmonary edema, plus or minus pneumonia. ASSESSMENT AND PLAN: 1. Sepsis due to bilateral lower lobe pneumonia. Continue intravenous vancomycin and intravenous cefepime. He has not been able to spit out sputum. I will continue oxygenation for his acute hypoxic respiratory failure and wean down to Ventimask as tolerated and will give him BiPAP as needed. 2. Acute chronic obstructive pulmonary disease exacerbation. Continue albuterol ipratropium nebulization, decrease intravenous steroid frequency. I will gambling counsellor him once he is more awake about smoking cessation. 3. Acute pulmonary edema, likely due to acute on chronic systolic congestive heart failure exacerbation with EF 15%. I will keep a close monitoring of his respiratory status. Continue his home carvedilol and isosorbide. Give additional diuretics. 4. Acute encephalopathy with unequal pupils. He did have thrombocytopenia since presentation. I will get head CT to rule out an intracranial hemorrhage. 5. Retroperitoneal hematoma, with history of femoral arterial blood draws in the emergency room. His hemoglobin has remained stable and CAT scan of his abdomen and pelvis suggested stable hematoma. I will continue to monitor his blood count. He currently has intact perfusion. 6. Acute on chronic kidney disease: Follow up BMP. Plans were to get outpatient nephrology evaluation. There could also be a component of cardiorenal syndrome. Monitor input and output closely. 6. History of right upper lobe pleural base lung mass, chronic tobacco and alcohol abuse, reported documented history of esophageal carcinoma, the details of which are not clear. I will try and get more details on this. I do not have any pathology of documented malignancy at the moment. He does have severe protein calorie malnutrition. 7. Others. His chronic kidney disease stage 3 and severe protein energy malnutrition are currently stable. 8. Disposition. More than 30 minutes of critical care time was spent taking care of this patient. He does appear cachectic. This could be related to his long- standing smoking, alcohol abuse, and possibly malignancy. His code status is DNR level 1. I called his to discuss about his health condition to get more historical data. However, she did not warehouse order picker. I have left a voice message. cc: MD DEEDEE Sandhu
--- NOTE | 2019-07-03 15:51 | GENERAL SURGERY PROGRESS NOTE ---
DATE: 07/03/2019 SUBJECTIVE: He is on BiPAP. He is not really conversant. Otherwise, hemodynamically he has been stable. No fevers. OBJECTIVE: Pulse in the 60s, blood pressure 122/87, oxygen saturation is 98%. He is on BiPAP with 60% FiO2. General: He is alert. He is not really conversant. Cardiovascular: Normal rate. Abdomen: Soft, nontender. Peripheral vascular: He has no hematoma or bruising of his groin. There is no flank induration or ecchymosis noted. His lower extremities are well perfused. LABORATORY DATA: White count 10, hematocrit is 36. This has been stable for the last several checks. I reviewed his ABG. His creatinine is 2.2. Sodium remains low. ASSESSMENT AND PLAN: A 68-year-old gentleman with retroperitoneal hematoma after femoral blood drawl by the emergency department. I would advise against any surgical intervention at this point. His hematocrit has been stable. I would hold anticoagulants. He is being treated for severe pneumonia at this juncture as well. We will follow along. cc: Dilan Woodson MD
[2019-07-03 16:33] LABS: CALCIUM 7.8 mg/dL (8.8-10.2); CREATININE 2.2 mg/dL (0.7-1.2); POTASSIUM 5.2 mmol/L (3.5-5.1)
--- NOTE | 2019-07-03 17:15 | PULMONOLOGY PROGRESS NOTE ---
DATE: 07/03/2019 SUBJECTIVE: Mr. Doyle is awake and alert. He is comfortable. He has no complaints. OBJECTIVE: Vital Signs: Blood pressure is 122/87 with a heart rate of 68, respirations are 17, temperature is 96.8 degrees with O2 saturations 96 to 98 percent on BiPAP at 90%. Head is normocephalic, atraumatic. Mucous membranes are dry. Neck: Supple with trachea midline. Cardiovascular: Regular rate and rhythm. S1 and S2 are appreciated. No murmur. Calves are nontender. Pulmonary: Airy entry is decreased with prolonged expiration. He does have inspiratory crackles bilateral, chest rises and falls symmetric respiration. Gastrointestinal: Abdomen soft, nontender, nondistended with bowel sounds in all 4 quadrants. Extremities: No clubbing, cyanosis or edema to lower extremities. Neurologic: He is awake, he is alert and oriented x3. LABS: WBC is 10 with hemoglobin 11.5, hematocrit 36 and platelets of 72,000. Sodium 129, potassium 5.4, BUN 101, creatinine 2.2 with a glucose of 143. ABGs pH is 7.38 with a CO2 of 22, PO2 of 209 and bicarb of 17. Chest x-ray revealed pleural effusions with pulmonary edema plus or minus pneumonia. CT of the head. ASSESSMENT AND PLAN: 1. Sepsis due to bilateral pneumonia. Continue Vancomycin and Cefepime. Blood cultures revealed no growth after 48 hours. 2. Acute hypoxemic resp failure in the setting of COPD and pneumonia - Continue to cycle BiPap and Ventimask. 3. Chronic obstructive pulmonary disease with exacerbation. continue his bronchodilators and steroids. 4. Chronic systolic heart failure with ejection fraction of 25%, I do not know that is accurate or not, in reviewing his intake and output he had 600 mL out in the prior 24 hours. continue his medication regimen per primary team. 5. Retroperitoneal hematoma status post femoral stick, surgery is following, monitoring hemoglobin and hematocrits. 6. Metabolic encephalopathy. 7. Pancytopenia very likely secondary to cirrhosis and underlying cancer. Continue to watch daily labs. 8. Chronic kidney disease stage 3B. Continue to monitor labs, renal dose medications as appropriate. 9. Electrolyte imbalance. Will monitor and treat as appropriate. 10. Unclear history of malignancy. 11. Severe protein calorie malnutrition followed by primary team. Plan was discussed with Dr. Morrison. Dictated by ELEANOR Dooley for Steven Morrison MD Case was discussed with ELEANOR Munroe. I agree with assessment and plan as outlined above. Steven Mcdonald M.D. cc: ELEANOR Dooley MD [facility]
[2019-07-03] MEDS: MORPHINE IV PRN (20:37)
[2019-07-04] MEDS: MORPHINE IV PRN ×5 (00:04→20:17)
[2019-07-04] MEDS: SOLU-MEDROL IV SCH ×2 (00:04→22:24)
[2019-07-04] MEDS: MAXIPIME 2 GM/NS 2 GM/100 ML IVPB IV SCH ×2 (03:21→14:21)
[2019-07-04] MEDS: DUONEB (A & A) INH SCH ×6 (03:25→23:26)
--- NOTE | 2019-07-04 07:25 | Diag Imaging Result Doc PS360 ---
EXAM: CHEST-PORTABLE 07/04/2019 HISTORY: dyspnea TECHNIQUE: AP portable at 0522 COMMENT: There are bilateral pleural effusions. There is alveolar opacity in the right lower lobe and inferior upper lobe. This was also present on 07/03/2019. The upper lobe opacity appears worse than on 07/02/2019 but is not particularly changed compared to 07/03/2019. IMPRESSION: Bilateral pleural effusions and pulmonary edema. Atelectasis versus pneumonia in the right upper and lower lobes. Electronically signed by Trey Matamoros 07/04/2019 7:22 AM
[2019-07-04 07:30] LABS: HEMATOCRIT 38.6 % (42.0-52.0); HEMOGLOBIN 12.3 g/dL (14.0-18.0); IMM GRAN# 0.02 X1000 (0.0-0.04); IMM GRAN% 0.2 % (0.0-0.5); LYMPH# 0.33 X1000 (1.2-3.4); LYMPH% 3.4 % (20.5-51.1); MCH 30.8 PG (27-31); MCHC 31.9 g/dL (33-37); MCV 96.7 FL (81-99); MONO# 0.11 X1000 (0.11-0.59); MONO% 1.1 % (1.7-9.3); NEUT# 9.17 X1000 (1.4-6.5); NEUT% 95.3 % (42.2-75.2); PLT 67 X1000 (130-400); RBC 3.99 XMIL (4.7-6.1); RDW 14.2 % (11.5-14.5); WBC 9.63 X1000 (4.8-10.8)
[2019-07-04 07:55] LABS: ALBUMIN 2.6 g/dL (3.5-5.0); CREATININE 2.4 mg/dL (0.7-1.2); POTASSIUM 4.8 mmol/L (3.5-5.1); TOTAL BILIRUBIN 1.61 mg/dL (0.20-1.00); TOTAL PROTEIN 5.3 g/dL (6.3-8.3)
--- NOTE | 2019-07-04 08:09 | PROGRESS NOTE ---
DATE: 07/04/2019 INTERVAL HISTORY: His vitals were largely unremarkable. He was saturating well on a Ventimask. CT scan of the head had detected right-sided occipital and encephalomalacia which was changed from a prior CT scan in February. He continues to have gurgling sounds. He was started on intravenous morphine, considering he was grimacing due to pain. He received a dose of intravenous Lasix and metolazone after which he did have a urine output of 1.5 L. SUBJECTIVE: He still appears confused. Occasionally followed commands but appears delirious. He often times takes his mask off and shouts for help. VITALS: Temperature of 97.3 degrees, pulse of 66, respiratory rate 14, blood pressure 107/71, he is saturating 96% on Venturi mask. PHYSICAL EXAMINATION: He is in mild distress because of pain. Oral cavity is significantly dry. He has decreased breath sounds on the right hemithorax. Adequate air entry on the left hemithorax. He has inspiratory crackles in bilateral inframammary regions. Cardiovascular: S1, S2 normal. Regular. No murmur, rub, or gallop. He has severe protein energy malnutrition. Abdomen is scaphoid. Active bowel sounds. He has a urine catheter. No lower extremity edema. He has neck vein distention. He is drowsy but arousable. Occasionally followed commands like opening mouth, extending hands for pulse check but does not answer questions or engage in meaningful conversation. Input and output suggests -1.2 L. LABS: His CBC, BMP are pending. No new microbiological data. Chest x-ray suggests persistent right lung infiltrate. ASSESSMENT AND PLAN: 1. Sepsis due to bilateral and predominantly right lower lobe pneumonia. Continue intravenous vancomycin and intravenous cefepime. He has not been able to make sputum to get a sputum culture. Blood cultures have been no growth to date. 2. Acute hypoxic respiratory failure due to acute chronic obstructive pulmonary disease exacerbation and acute pulmonary edema. Continue to cycle Ventimask and BiPAP as tolerated. He responded well to intravenous Lasix and metolazone yesterday. I am holding further diuretics as I await BMP. Continue inhaled bronchodilators and current dose of intravenous steroids. 3. Acute on chronic systolic congestive heart failure exacerbation with ejection fraction of 15%. Continue home carvedilol, isosorbide. He has had a history of chronic alcohol abuse which could have contributed to his cardiomyopathy. I will give additional diuretic dose based on his kidney function and clinical status. Currently, he does not have lower extremity edema and his pulmonary edema did not improve significantly after diuretics. 4. Acute on chronic kidney disease stage 3. He previously had untreated, uncontrolled hypertension and also had severely reduced systolic congestive heart failure which could be contributing to his worsening kidney function. I will get urine electrolytes and have nephrology evaluation to get further recommendations. 5. Acute encephalopathy. This could be critical illness acquired delirium. His CT scan had detected right-sided occipital encephalomalacia which was not present in February 2019. I will get ultrasound of carotids and an echocardiogram to rule out carotid artery stenosis as well as intracardiac thrombus. In the future, I will consider getting MR angiography. I will start him on high-dose atorvastatin. I am holding aspirin anticoagulation at the moment considering his retroperitoneal hematoma. He may have sustained subacute cerebrovascular accident which could be a contributing factor to recent encephalopathy. 6. Retroperitoneal hematoma after femoral arterial blood draw in the emergency room. His hemoglobin appears to be stable, though CBC is pending. I will resume aspirin for his cerebrovascular accident and deep venous thrombosis prophylaxis once cleared by surgical team. He has intact femoral pulses at the moment. 7. History of right upper lobe pleural based lung mass, chronic tobacco and alcohol abuse, and elevated CEA levels suspicious for malignancy. He also has gurgling sounds and inability to swallow secretions. The history of esophageal carcinoma has not been confirmed yet but he is at risk of malignancy. I will keep him on aspiration precautions. 8. Disposition. Mr. Doyle's condition is critical. More than 30 minutes of critical care time were spent in taking care of this patient. His prognosis is extremely poor and he is at risk off dying during this hospitalization considering his severe cardiomyopathy, kidney dysfunction, hypoxic respiratory failure with pneumonia. I called his again today and left her a voice message. I intend to start hospice evaluation once I talk with his . His prognosis is poor. cc: Indra Joe MD ADDENDUM: The prelim ECHO read suggested he has ventricular thrombus. I discussed this with the surgery team. Once final read comes back, my plan is to start him on heparin drip without bolus with monitoring CBC every 6 hours. MTDD
[2019-07-04 08:33] LABS: CHOLESTEROL 114 mg/dL (0-200); HDL 22 mg/dL (35-55); LDL 60 mg/dL; TRIGLYCERIDES 161 mg/dL (39-160); VLDL 32 mg/dL
[2019-07-04] MEDS: COREG PO SCH ×2 (09:13→20:52)
[2019-07-04] MEDS: ISORDIL PO SCH ×3 (09:13→20:52)
[2019-07-04 09:37] LABS: BANDS 2 % (0-1); LARGE PLATELETS 1+; LYMPHS 2 % (21-51); MONO 4 % (1-9); SEGS 92 % (42-75)
[2019-07-04 11:40] LABS: UR CREAT RANDOM 13.7 mg/dL (14-26)
--- NOTE | 2019-07-04 15:08 | PULMONOLOGY PROGRESS NOTE ---
DATE: 07/04/2019 SUBJECTIVE: Mr. Doyle is sitting up in the bed. He is confused at times, calling out to the staff. He has since completed an echocardiogram. OBJECTIVE: Vital Signs: Blood pressure is 110/74, with heart rate of 69, respirations are 15, temperature is 97 degrees, with O2 saturations per Ventimask at 50% 97 to 99%. HEENT: Head is normocephalic, atraumatic. Mucous membranes moist. Neck: Supple. Trachea midline. Cardiovascular: Regular rate and rhythm. S1, S2 appreciated. No murmur, rub, or gallop. Pulmonary: Breath sounds are decreased on the right. Chest rises and falls symmetrically with respiration. Gastrointestinal: Abdomen is soft, nontender, nondistended, with bowel sounds in all 4 quadrants. Extremities: No clubbing, cyanosis, or edema. Neurologic: He is awake. He is alert. He screams out to staff at times. He did follow simple commands. LABS: WBC is 9.6, hemoglobin 12.3, hematocrit 38.6, platelets 67,000. Sodium 135, potassium 4.8, BUN 111, creatinine 2.4, with a glucose of 117. His proBNP is greater than 35,000. Chest x-ray revealed bilateral pleural effusions and pulmonary edema, atelectasis versus pneumonia in the right upper and lower lobes. CT of the head 07/03 reveals subacute infarction in the right occipital lobe, chronic ischemic microvascular white matter changes. Echocardiogram is pending. ASSESSMENT AND PLAN: 1. Sepsis due to bilateral pneumonia. continue vancomycin and cefepime. 2. Acute hypoxemic respiratory failure in the setting of chronic obstructive pulmonary disease and pneumonia. continue to cycle BiPAP at night and Ventimask during the day. 3. Chronic obstructive pulmonary disease with exacerbation. continue bronchodilators, steroids. 4. Chronic systolic heart failure with an ejection fraction of 25%. Continue medication per primary team. 5. Retroperitoneal hematoma, status post femoral stick. Surgery is following. Monitoring hemoglobin and hematocrit. 6. Metabolic encephalopathy. CT scan revealed subacute infarction in the right occipital lobe. Further workup per medical team is in progress. 7. Pancytopenia, very likely secondary to cirrhosis and underlying cancer. Continue to follow daily labs. 8. Chronic kidney disease stage 3B. Continue to monitor labs, renal dose medications. Electrolyte imbalance will be treated as appropriate. 9. Unclear history of malignancy. 10. Severe protein calorie malnutrition. Treatment per primary team. 11. Plan was discussed with Dr. Morrison. Dictated by ELEANOR Dooley for Steven Morrison MD Clinical exam was performed by ELEANOR Kramer. I reviewed the labs and x- rays remotely. I discussed the case with Ms. Rush. I agree with the above assessment and plan. Steven Morrison M.D. cc: ELEANOR Dooley MD [facility]
--- NOTE | 2019-07-04 15:09 | GENERAL SURGERY PROGRESS NOTE ---
DATE: 07/04/2019 SUBJECTIVE: Remains about the same from pulmonary standpoint. He is not really verbal. OBJECTIVE: Vitals: On exam, he is afebrile. He does have pulse in the 60s to 70s. Blood pressure has been stable at 120s. Abdomen: Soft. There is no bruising to right flank. Lower extremities: Well perfused. Palpable femoral pulse. No hematoma. LABS: White count is 9, hematocrit is stable at 38. ASSESSMENT/PLAN: A 68-year-old gentleman admitted with sepsis related to pneumonia. He had a retroperitoneal hematoma from a femoral stick. Hematocrit has been stable. This seemed to resolve. We will continue to follow him, holding anticoagulants, but no plans for surgical intervention. cc: Dilan Woodson MD
--- NOTE | 2019-07-04 18:21 | ECHO REPORT ---
ORDER DATE: 07/04/2019 STUDY: Limited echocardiogram. INTERPRETING PHYSICIAN: Dr. Whelan CLINICAL INDICATIONS: Evaluate left ventricular function, question of thrombus. Contrast was added. M-MODE MEASUREMENTS: Left ventricle end diastole: 4.9 cm. Left ventricle end systole: 4.5 cm. Posterior wall: 1.1 cm. Interventricular septum: 1.2 cm. Left atrium: 2.9 cm. SUMMARY OF 2-DIMENSIONAL IMAGIN. The global left ventricular systolic function appears to be significantly impaired. Ejection fraction is probably in the order of 20% to 25%. Impairment is global. There is thickening of the apical portion of the left ventricle that mimics the presence of a thrombus. The injection of agitated saline suggests that there is trabeculation around this thickening of the apical cardiac muscle. On the apical four-chamber views, which is the typical view where one would expect to see a thrombus, there is no clear indication of it. There is, again, quite a bit of trabeculation and thickening of the muscle of the apex, which is somewhat uncommon. 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 2. The other cardiac structures are really not well visualized. 3. The aortic valve is somewhat sclerotic without stenosis. 4. The mitral valve opens although very sluggishly. There is a prominent left pleural effusion. 5. There is no pericardial effusion. 6. The right-sided chambers are somewhat generous. 7. The left atrium appears to be enlarged. CONCLUSIONS: In summary, this study shows: 1. Significantly impaired systolic function, probably in the order of 20% with pseudo abnormality in the apical portion of the left ventricle only noted in really off-axis views, which is uncommon for thrombus. I suspect this is part of the apical myocardium. 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 2. Clinical correlation recommended. cc: MD Indra Quiroz MD [facility]
--- NOTE | 2019-07-04 19:26 | PROGRESS NOTE ---
DATE: 07/04/2019 ADDENDUM: Echocardiogram did not detect any definitive evidence of intracardiac thrombus. I was able to get in touch with Mr. Doyle's fiancee, Ms. Stanford, on [phone]. I called her and informed her about Mr. Doyle's critical condition. I informed her that Mr. Doyle has multiple organ failure including kidney failure, heart failure and lung failure and he is still needing a high amount of oxygen. I informed her that he has not shown much signs of improvement over the last 4 to 5 days. I informed her that he is at risk of dying during this hospital condition if the medical condition does not improve. She understood it. I again reiterated the code status and it is DNR level 1, and I presented to her about hospice options and she is willing to consider that. I explained to her about the side if she comes to the hospital she should let us know so that we can provide her more information about hospice and potentially make a final decision in next 24 hours or so. Plan of care discussed with her. Her questions have been answered. cc: Indra Joe MD
[2019-07-04] MEDS ORDERED: LIPITOR PO SCH (21:00)
[2019-07-04] MEDS: VANCOMYCIN 1 GM/NS 1 GM/250 ML IVPB IV SCH (22:24)
[2019-07-05] MEDS: MORPHINE IV PRN ×5 (00:14→22:12)
[2019-07-05] MEDS: MAXIPIME 2 GM/NS 2 GM/100 ML IVPB IV SCH (01:35)
[2019-07-05] MEDS: DUONEB (A & A) INH SCH ×6 (03:20→23:18)
[2019-07-05] MEDS ORDERED: MORPHINE IV PRN (06:36)
[2019-07-05 08:05] LABS: BASO# 0.02 X1000 (0.0-0.2); BASO% 0.2 % (0.0-0.8); HEMATOCRIT 40.6 % (42.0-52.0); HEMOGLOBIN 12.9 g/dL (14.0-18.0); IMM GRAN# 0.04 X1000 (0.0-0.04); IMM GRAN% 0.4 % (0.0-0.5); LYMPH# 0.31 X1000 (1.2-3.4); MCH 31.5 PG (27-31); MCHC 31.8 g/dL (33-37); MONO# 0.27 X1000 (0.11-0.59); MONO% 2.6 % (1.7-9.3); MPV 11.7 FL (7.4-10.4); NEUT# 9.64 X1000 (1.4-6.5); NEUT% 93.8 % (42.2-75.2); PLT 63 X1000 (130-400); RDW 14.6 % (11.5-14.5); WBC 10.28 X1000 (4.8-10.8)
[2019-07-05 08:14] LABS: ALBUMIN 2.7 g/dL (3.5-5.0); CALCIUM 8.1 mg/dL (8.8-10.2); CREATININE 2.5 mg/dL (0.7-1.2); POTASSIUM 4.7 mmol/L (3.5-5.1); TOTAL BILIRUBIN 1.53 mg/dL (0.20-1.00); TOTAL PROTEIN 5.3 g/dL (6.3-8.3)
[2019-07-05] MEDS ORDERED: ALBUMIN 25% IV SCH (09:00)
[2019-07-05] MEDS ORDERED: LASIX IV SCH (09:00)
[2019-07-05] MEDS ORDERED: LOVENOX SUBQ SCH (09:00)
[2019-07-05] MEDS: COREG PO SCH (09:31)
[2019-07-05] MEDS: ISORDIL PO SCH (09:31)
[2019-07-05 10:24] LABS: BANDS 2 % (0-1); LYMPHS 2 % (21-51); MONO 2 % (1-9); SEGS 94 % (42-75)
--- NOTE | 2019-07-05 10:32 | PROGRESS NOTE ---
DATE: 07/05/2019 INTERVAL HISTORY: No acute events overnight. His echocardiogram did not detect any intraventricular thrombus. He continues to remain on 50% Ventimask. He is becoming hypothermic now. He has not been able to take oral medication. His urine output has improved in the last 24 hours. SUBJECTIVE: He keeps his eyes open but does not respond to verbal stimuli or engage in conversation meaningfully. VITAL SIGNS: Temperature of 96.6 degrees, pulse of 68, respiratory rate of 10, blood pressure 120/70. He is saturating 98% on Venturi mask. PHYSICAL EXAMINATION: General: He has a Emilia Hugger on his body for his hypothermia. Oral cavity is dry. Lungs: He has rhonchi infrascapular bilateral inframammary region. No wheeze. Adequate air entry in supramammary region. Cardiovascular: S1, S2 normal. No murmur, rub, or gallop. Abdomen: Scaphoid, soft, nontender. He has urine catheter. Extremities: No lower extremity edema. He is keeping his eyes open. He is not alert. He has pupils about 6 mm bilateral eyes which are briskly reacting. He does not follow any command. He is occasionally fidgety and moving all extremities. Occasionally moans. He has gurgling sounds. He has poor cough. LABORATORY DATA: Suggestive of WBC of 10,000, hemoglobin 12.9, platelets of 63,000. He does have elevated BUN and creatinine. No new microbiological data. No new imaging. ASSESSMENT AND PLAN: 1. Sepsis due to predominantly right lower lobe pneumonia. Continue intravenous vancomycin and intravenous cefepime. Day 1 of antibiotics has been 07/01/2019. Follow up chest x-ray tomorrow for followup of pneumonia. Blood culture did not have any growth. He has not been able to make sputum. 2. Acute hypoxic respiratory failure due to mild acute chronic obstructive pulmonary disease exacerbation and acute pulmonary edema. Currently, he is saturating well on Ventimask. Continue inhaled bronchodilators and I will stop his intravenous steroids after last dose tonight. 3. Acute on chronic systolic congestive heart failure exacerbation with ejection fraction of 15%. He has not been able to take his carvedilol isosorbide by mouth. He has history of chronic alcohol abuse, which could have contributed to cardiomyopathy. I will give him diuretics as needed. 4. Acute on chronic kidney disease stage III. He previously had untreated hypertension and severely reduced systolic congestive heart failure could contribute to his worsening kidney function. Nephrology team has been consulted. Continue input and output monitoring to Thompson catheter. 5. Acute encephalopathy, combination of critical illness acquired delirium. His CT scan had a right-sided occipital encephalomalacia which was not present in February 2019. Ultrasound carotid is pending. Echocardiogram has reduced ejection fraction. There is no definitive intracardiac thrombus. I will start him on deep venous thrombosis prophylaxis with enoxaparin considering his thrombocytopenia. I will wait before starting him on his aspirin for secondary cerebrovascular accident prophylaxis. 6. Retroperitoneal hematoma after femoral arterial blood draw in the emergency room. Currently, hemoglobin appears stable. I will resume his aspirin in the next 24 hours if his platelet count is stable. 7. 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 He would need eventual biopsy for confirmation of diagnosis. 8. Disposition. Mr. Doyle's condition is critical. More than 30 minutes of critical care time was spent taking care of this patient. He has profound severe protein energy malnutrition, moderate to severe chronic obstructive pulmonary disease, severe systolic congestive heart failure, chronic kidney disease, and now cerebrovascular accident. Due to his multiple medical comorbidities, he is at risk of dying during this hospital admission. I called his or fiancee yesterday and brought up hospice care. The family is going to visit him today to have a definitive discussion about hospice care. Currently, his code status is DNR level 1. cc: Indra Joe MD
--- NOTE | 2019-07-05 14:18 | PROGRESS NOTE ---
DATE: 07/05/2019 ADDENDUM: I had a discussion about Mr. Doyle's medical condition with the palliative care team as well as patient's partner whom I met in counseling room in ICU. I explained to Ms. Stanford about patient's critical condition including stroke, severe congestive heart failure, COPD, kidney failure, pneumonia, explained to her that considering his chronic alcohol and tobacco abuse and multiple medical comorbidities he had poor health result and he has not really responded well to treatment over last 5 days. Considering his hypothermia, poor respiratory effort, worsening mental status I explained to her that Mr. Doyle has a poor prognosis and is at risk of dying. I explained to her that his condition prognosis is extremely poor, Ms. Stanford expressed that she would be willing to pursue comfort measures only and I explained to her that this would mean that we would stop all the heroic measures including antibiotics and other measures which have not helped him since last few days, instead we will give him treatment to target his discomfort, anxiety and pain. I explained to her that we would also try and find a private room and transfer him over there. Hospice team and hospice nurse is also involved in this discussion. I communicated the plan to patient's nurse. Additional 30 minutes of time was spent in discussing goals of care. cc: Indra Joe MD [facility]
--- NOTE | 2019-07-05 15:28 | PULMONOLOGY PROGRESS NOTE ---
DATE: 07/05/2019 SUBJECTIVE: The patient does not respond to questions. It is not clear that he can focus on the examiner. The patient is emaciated with temporal wasting and a BMI of 17. He appears moribund. He has audible an rhonchi/ rattle. OBJECTIVE: Vital Signs: The patient has been hypothermic and has required a Emilia Hugger. Blood pressure 121/70, heart rate 69, respiratory rate 13. Oxygen saturation 99%. HEENT: Bitemporal wasting. Oropharynx appears dry. Neck: Supple. Chest: Reveals coarse rhonchi throughout all lung strick[place]. Cardiac: S1-S2. Abdomen: Scaphoid and soft. Extremities: Trace edema. LABORATORIES: Sodium 137, potassium 4.7, chloride 104, bicarbonate 14, BUN 126, creatinine 2.5. White blood count 10.28, hemoglobin 12.9, platelet 63,000. IMPRESSION: A 68-year-old with: 1. Bibasilar pneumonia. 2. Bibasilar effusions. 3. Cardiomegaly with cardiomyopathy with systolic ejection fraction of 20%. 4. Renal failure. 5. Hypoxemic respiratory failure. 6. Severe protein calorie malnutrition with significant wasting. DISCUSSION: 68-year-old male who appears moribund as outlined above. It is not clear whether this represents wasting from his heart disease, lung disease or an undiagnosed malignancy. He does have cirrhosis of the liver with hepatitis C. He has a diagnosis of lung cancer without treatment. He appears to be dying. RECOMMENDATION: Agree with palliative care evaluation. He currently is not a candidate for aggression evaluation of lung cancer and clearly is not a candidate for any treatment at this time if cancer was identified. cc: Steven Morrison MD
--- NOTE | 2019-07-05 16:25 | PROVIDER PROGRESS NOTE ---
Progress Note Chief complaint: unable to communicate HPI: Mr. Doyle is a 68-year-old white male who is unable to communicate at his time. My HPI and past history was obtained from previous documentation. He has a significant medical history of COPD, systolic heart failure with an estimated ejection fraction of 20%, cirrhosis of the liver, hepatitis C, PTSD, hypertension, CVA, chronic kidney disease, and lung and esophageal cancer with Mets. The patient was brought into the emergency department on 06/30/2019 for increasing shortness of breath and malaise. He was admitted with bilateral pneumonia secondary to suspected aspiration ammonia, fluid volume deficit, acute kidney injury versus chronic kidney disease, and exacerbation of congestive heart failure. He has a retroperitoneal bleed secondary to a right femoral stick that surgery wants to treat conservatively. He has been in the ICU setting where he has received cefepime, vancomycin, solumedrol, and breathing treatments. His Is admitting creatinine was 2.0 and is now 2.5. He has been less responsive over the past few days and is now unable to communicate at all. He reacts with moaning to tactile stimuli. Hospice has been consulted and he has been made a DNR level one. Past medical history: COPD, systolic congestive heart failure with an EF of 20%, cirrhosis of the liver, hepatitis C, PTSD, hypertension, coronary artery disease, history of alcohol and nicotine dependence, Chronic kidney disease, and lung and esophageal cancer with no chemotherapy or radiation. Past surgical history: right thigh surgery Social history: The patient lives at home with his fianc. He is a current pack a day smoker for 50 years, he has a past history of alcohol dependence but denies current use. Denies illicit drug use. Family history: mother was positive for cancer that metastasized to her brain. His father had lung cancer. Allergies: penicillin Home Medications: hydralazine, isosorbide dinitrate, lasix, lisinopril, carvedilol, spiriva Review of systems: unable to obtain for AMS Physical exam: temperature 97.1, pulse 72, respirations 10, blood pressure 122/75, 02 sat 93% and 50% Venturi mask General: chronically ill, cachectic, white male lying in bed in no acute distress. HEENT: normocephalic, a traumatic, pupils equal and reactive. Mucous membranes dry. Skin: dry with multiple scattered bruises Neck: supple, JVD with the powder jugular reflux, Cardiovascular: S1, S2, tachycardic rate and rhythm. Difficult to auscultate over loud audible respiratory noise Respiratory: audible rales and rhonchi Abdomen: soft, nontender, nondistended. Bowel sounds present. : non-inspected, Thompson in place next line Extremities: trace Edema to bilateral lower extremities. Neurological: unable to assess orientation. Eyes open and moans to tactile stimuli. Labs: WBC 10.28, hemoglobin 12.9, hematocrit 40.6, platelet count 63, sodium 137, potassium 4.7, chloride 104, carbon dioxide 14, and I got 19, BUN 126, creatinine 2.5, albumin 2.7. Urine: Random creatinine 13.7, random sodium 84, random urea nitrogen 276, random vancomycin 13.10. Imaging: chest x-ray impression bilateral pleural effusions and pulmonary edema. Atelectasis versus pneumonia in the right upper and lower lobes. Head CT without contrast impression subacute infarction in the right occipital lobe. Chronic ischemic microvascular white matter changes. Assessment and plan: Acute on chronic kidney disease. Acute ischemic tubular necrosis secondary to sepsis, retroperitoneal bleed, and dehydration. Fractional excretion urea score of 45%. Plans are noted for conservative care. Not a candidate for [employer]. Contact us if needed. Blood pressure. In target. Fluid volume. Respiratory exam suggest expanded. We will order lasix and albumin. Anemia. Stable. Electrolytes. Stable.
[2019-07-05] MEDS ORDERED: ASPIRIN PO SCH (21:00)
[2019-07-06] MEDS: MORPHINE IV PRN ×7 (01:32→21:31)
[2019-07-06] MEDS: ATROPINE 1 % OPHTH SOLN SL PRN ×4 (01:44→22:32)
[2019-07-06] MEDS: DUONEB (A & A) INH SCH ×6 (03:38→23:05)
--- NOTE | 2019-07-06 09:13 | Carotid Study ---
DATE: 07/04/2019 REQUESTING PHYSICIAN: Dr. Joe. BOTTLE HOUSE QUALITY CONTROL TECHNICIAN: Mao. INDICATIONS: Right occipital infarct. EQUIPMENT: [employer] Vivid E9 ultrasound system with a 9 L-D transducer. FINDINGS: A complete diagram of ultrasound images can be seen scanned in the patient's medical record. The peak systolic velocity noted on the right side is in the proximal internal carotid artery and is noted to be 44. The peak systolic velocity noted on the left side is in the mid internal carotid artery and is noted to be 46. The calculated internal carotid ratio on the right is 0.99, left 1.07. Both vertebral arteries are antegrade flow. Calculated stenosis 0 to 39 percent on the right and 0 to 39 percent on the left. There is visualized plaque noted bilaterally. The patient does have an IV in the left neck which makes visualization of the left side somewhat difficult. The patient's overall velocities are slow throughout the entirety which makes some interpretive ability of this study limited. INTERPRETATION: Somewhat limited study secondary to the low velocities throughout the entirety of the carotid system and IV noted in the left neck but no hemodynamically significant flow-limiting stenosis noted. There does appear to be calcific plaques noted bilaterally. cc: MD Indra Baker MD
[2019-07-06] MEDS ORDERED: TRANSDERM-SCOP TD SCH (16:15)
--- NOTE | 2019-07-06 16:41 | PROGRESS NOTE ---
DATE: 07/06/2019 SUBJECTIVE: The patient is resting comfortably in bed. No acute events noted overnight. OBJECTIVE: Vital Signs: Temperature 98.6 degrees, blood pressure 104/73, heart rate 59, respirations 5, and O2 saturation 96% on 4 L nasal cannula. General: This is a comatose male lying in bed in no acute distress. Heart: S1, S2. Normal. Bradycardic. Lungs: Coarse breath sounds with crackles bilaterally. Abdomen: Positive bowel sounds. Soft. Extremities: No edema. No cyanosis. Neurologic: The patient is comatose. ASSESSMENT: 1. Sepsis. 2. Right lower lobe pneumonia. 3. Acute hypoxemic respiratory failure. 4. Chronic obstructive pulmonary disease exacerbation. 5. Acute pulmonary edema. 6. Acute on chronic systolic congestive heart failure exacerbation. 7. Acute kidney injury on chronic kidney disease. 8. Metabolic encephalopathy. 9. Tobacco dependence. 10. Alcohol abuse. 11. Retroperitoneal hematoma. PLAN: The patient is currently on comfort measures. We will add a scopolamine patch. Continue with comfort medications at this time. cc: Becky Guillaume MD
[2019-07-07] MEDS: DUONEB (A & A) INH SCH ×4 (02:52→16:09)
[2019-07-07] MEDS: MORPHINE IV PRN ×2 (03:05→06:09)
[2019-07-07] MEDS: ATROPINE 1 % OPHTH SOLN SL PRN (03:06)
[2019-07-07] MEDS ORDERED: TEARISOL OPH SOLUTION OPH PRN (08:34)
[2019-07-07 14:17] VITALS: BP 55/34
--- NOTE | 2019-07-13 21:00 | DISCHARGE SUMMARY ---
ADMISSION DATE: 07/01/2019 DISCHARGE DATE: 07/07/2019 FINAL DISCHARGE DIAGNOSES: 1. Sepsis. 2. Right lower lobe pneumonia. 3. Acute hypoxemic respiratory failure. 4. Chronic obstructive pulmonary disease exacerbation. 5. Acute pulmonary edema. 6. Acute on chronic systolic congestive heart failure exacerbation. 7. Acute on chronic kidney disease stage 3. 8. Metabolic encephalopathy. 9. Retroperitoneal hematoma, status post femoral arterial blood drawl. 10. Right upper lobe lung mass. 11. Tobacco dependence. CONSULTATIONS: 1. Pulmonary consultation with Dr. Morrison. 2. Nephrology consultation with Dr. Briggs. 3. General Surgery consultation with Dr. Harris. HOSPITAL COURSE: Mr. Doyle is a 69-year-old male with a history of multiple medical problems who presented to the ER in acute respiratory failure. The patient was noted to be severely malnourished and emaciated. A chest x-ray was done that revealed that revealed bilateral lobe pneumonia, most likely secondary to aspiration. Also, the patient was noted to be in acute kidney injury on chronic kidney disease. A CT of the abdomen and pelvis was done that revealed retroperitoneal hematoma on the right pelvis tracking into the right groin as well as large bilateral pleural effusions and basilar atelectasis. In light of these findings, Pulmonary Medicine, Nephrology, and General Surgery were consulted. It was thought that the retroperitoneal hematoma was secondary to the femoral arterial blood draw done in the ER. Blood cultures were obtained. The patient was started on broad-spectrum antibiotics. Despite aggressive therapy, the patient's clinical condition continued to worsen. This was discussed with the family at great length who opted to make the patient a DNR level 1 and transfer him to the medical floor for comfort measures. On 07/07/2019 at 15:20, the patient was pronounced . The patient had no pulse, no respirations, no corneal reflexes, and the pupils were noted to be fixed and dilated. The patient's family was notified of the patient's . cc: Becky Guillaume MD
== END 2019-07-07 15:20 | disposition expired | DRG 871 ==
LOC: SUPCPDRO → ED 20:48 → 2N 07-01 02:50 → SUATTDRO 07-01 02:50 → ICU 07-02 20:21 → 3N 07-05 15:56
PROVIDERS: ATTEND Internal Medicine